=== PATIENT | female | born 1960 | race Hispanic/Latino ===

== ENCOUNTER 2022-08-12 21:52 | Inpatient (IN) | payer SELFPAY ==
[~2022-08-12] VITALS: Ht 165.1 cm; Wt 57.2 kg
--- NOTE | 2022-08-12 21:57 | NUR ---
PT WAS IN ASYSTOLE. CPR INITIATED CHEST COMPRESSIONS STARTED BY ANNA LENZ 2156 CHEST COMPRESSIONS INITIATED. 20G LEFT WRIST STARTED BY YULY STANTON. BREATHS DELIVERED BY DR. CHIRINOS. JOSÉ STANTON RECORDING. 2199- FIRST DOSE OF EPI ADMINISTERED BY JOSEPH STANTON 2200- PULSE CHECK ON AED. NO PULSE DETECTED. NO SHOCK ADVISED. CPR CONTINUED. 2201- ONE AMP OF SODIUM BICARB ADMINISTERED. BLOOD SUGAR 197 2202- SECOND DOSE OF EPI ADMINISTERED BY JOSEPH STANTON 2203- PULSE CHECK. NO PULSE DETECTED CPR CONTINUED 2204- PULSE DETECTED. RATE IS 152. PT SUCCESSFULLY INTUBATED. 7.5 ET TUBE. 23 AT THE LIP. 2207- AMIODERONE 300MG IV BOLUS ADMINISTERED BY JOSEPH 2210- NG TUBE TO RIGHT NARE PLACED BY JAEL GARCIA LVN 2219-PROPOFOL DRIP STARTED AT 5MCG/KG/MIN. PT WEIGHT 68KG 2215- NS BOLUS STARTED AT THIS TIME BY JOSEPH. 16FRENCH [place] PLACED BY YULY STANTON. 2222- 20G TO LEFT HAND STARTED BY YULY STANTON. 2229- PT MOVED FROM ROOM 6 TO ED ROOM 1 2241-100MCG OF FENTYNL GIVEN 224- ROCURONIUM 50MG ADMINISTERED 2322- PROPOFOL DRIP INCREASED TO 7MCG. LASIX 80MG GIVEN 2344- ATIVAN 2MG GIVEN 2345-PROP INCREASED TO 9MCG 2358- PT WAS TAKEN TO CT BY RT, JOSEPH STANTON, AND PUJA RUTH. 0023- BACK FROM CT 0103- PROP INCREASED TO 11MCG 0130- ZOSYN GIVEN 013- PROPOFOL INCREASED TO 14MCG. 0235- PT TRANSFERED TO ICU ROOM 2
--- NOTE | 2022-08-12 21:57 | NUR ---
PT ARRIVED TO THE ER COMPAINING OF CHEST PAIN. PT WAS BROUGHT BACK TO ROOM 6 AND WHILE ATTEMPTING TO INITIAL VITAL SIGN MONITORING ON PT, PT BEGAN TO STATE THAT SHE NEEDED HELP BECAUSE SHE COULD NOT BREATH. PT THE GRABBED AT HER CHEST AND EYES ROLLED BACKWARDS. DR. CHIRINOS IN ROOM DELIVERING BREATHS TO PT VIA AMBU BAG. ATTEMPTS WERE MADE TO FIND A PULSE ON PT. PT WAS IN ASYSTOLE AND CHEST COMPRESSIONS WERE INITIATED BY ANNA STANTON.
[2022-08-12] MEDS ORDERED: ZEMURON IV STA (22:37)
[2022-08-12] MEDS ORDERED: NS 1000ML 1,000 ML IV STA (22:37)
[2022-08-12] MEDS ORDERED: SUBLIMAZE IV STA (22:37)
[2022-08-12] MEDS ORDERED: SUBLIMAZE ONE (22:39)
[2022-08-12 22:44] LABS: BASOPHIL # 0.1 10^3/uL (0.0-0.1); BASOPHIL % 0.6 % (0.0-0.2); EOSINOPHIL # 0.3 10^3/uL (0.0-0.2); EOSINOPHIL % 1.8 % (0.0-5.0); LYMPHOCYTES # 7.07 10^3/uL1 (1.0-4.8); LYMPHOCYTES % 50.1 % (24.0-44.0); MEAN CORP HGB 28.5 pg (26-34); MONOCYTES # 0.6 10^3/uL (0.3-0.8); MONOCYTES % 4.1 % (5.0-12.0); NEUTROPHIL # 6.1 10^3/uL (1.8-7.7); NEUTROPHILS % 43.4 % (41.0-85.0); PLATELET COUNT 220 10^3/uL (150-400); RED CELL DISTRIBUTION WIDTH 13.6 % (11.5-14.5)
[2022-08-12] MEDS ORDERED: DIPRIVAN IV STA (22:54)
--- NOTE | 2022-08-12 22:59 | DIREP ---
PROCEDURE:CHEST 1 VIEW COMPARISON:None. INDICATIONS:Chest pain FINDINGS: LUNGS/PLEURA:Diffuse bilateral airspace opacity. VASCULATURE:Diffusely increased. CARDIAC:Normal. No cardiac silhouette abnormality or cardiomegaly. MEDIASTINUM:Endotracheal tube 5 cm above the jason. NG tube extends into the abdomen. BONES:Normal. No fracture or visible bony lesion. OTHER:Monitor leads in place. CONCLUSION:Findings consistent with either pulmonary edema or bilateral pneumonia. Dictated by: Costa Watson M.D. on 08/12/2022 at 10:57 PM
[2022-08-12 23:02] LABS: EOSINOPHIL 3 % (1-4); LYMPHOCYTE 45 % (25-36); MONOCYTE 3 % (3-9); SEGMENTED NEUTROPHILS 49 % (31-76)
[2022-08-12 23:07] LABS: CARBON DIOXIDE 14.5 mmol/L (20.0-32)
[2022-08-12] MEDS ORDERED: ASPIRIN RC STA (23:07)
[2022-08-12] MEDS ORDERED: ASPIRIN RC ONE (23:07)
[2022-08-12] MEDS ORDERED: LASIX IV STA (23:12)
--- NOTE | 2022-08-12 23:14 | ER.PDOC ---
General Chief Complaint: Requesting Medical Care Stated Complaint: CHEST PAIN SOB Time seen by MD: 23:07 Source: patient Exam Limitations: no limitations History of Present Illness Initial Comments Chest pain and shortness of breath this evening. Patient was rolled into the room and immediately she was put on the bed, she coded. She lost her pulse and CPR initiated. Timing/Duration: 4-6 hours Severity/Quality: moderate Activities at Onset: none Associated Symptoms: shortness of breath Past Medical History Medical History: no pertinent history Surgical History: no surgical history Family History Significant Family History: no pertinent family hx Social History Alcohol Use: none Drug Use: none Constitutional: no symptoms reported EENTM: no symptoms reported Respiratory: see HPI Cardiovascular: see HPI Gastrointestinal: no symptoms reported All Other Systems: Reviewed and Negative Physical Exam General Appearance: Other (unresponsive) HEENT: Normal ENT Inspection Neck: Normal Inspection Respiratory: respiratory distress, crackles Cardiovascular: Regular Rate, Rhythm, No Gallop, No Murmur, Other (absent pulses) Gastrointestinal: Normal Bowel Sounds, No Organomegaly, No Pulsatile Mass, Soft Extremities: Normal Inspection Neurologic/Psychiatric: Other (unresponsive) Skin: Normal Color Lymphatic: No Adenopathy Intubation Intubation : Time of Intubation: 21:15 Intubation Method: orotracheal Blade: curved Tube Size (cm): 7.5 Preoxygenated: Yes Breath Sounds after Intubation: equal Intubation Complications: no complications Post Intubation Xray: Yes Results/Orders Results/Orders Orders - CANDIS HOWARD MD EKG (08/12/22 22:27) Xr Chest 1v (08/12/22 22:27) Cbc With Auto Diff (08/12/22:) Comprehensive Metabolic Panel (08/12/22 22:) Creatine Kinase (08/12/22 22:27) Creatine Kinase Mb (08/12/22 22:27) Probnp B-Type Route Manager (08/12/22:) PT (08/12/22:27) Partial Thromboplastin Time. (08/12/22:27) D-Dimer (08/12/22:27) Troponin I High Sensitivity (08/12/22 22:27) Magnesium (08/12/22 22:27) Abg Oxygen Saturation-Ccl Only (08/12/22:) Rocuronium [place] (Zemuron) (08/12/22 22:37) 0.9 % Sodium Chloride (Ns 1000ml) (08/12/22 22:37) Fentanyl Citrate/Pf (Sublimaze) (08/12/22 22:37) Fentanyl Citrate/Pf (Sublimaze) (08/12/22 22:39) Propofol (Diprivan) (08/12/22 22:54) Laboratory Tests Test 08/12/22 22:35 08/12/22 22:57 White Blood Count 14.1 10^3/uL (4.5-11.0) H Red Blood Count 4.66 10^6/uL (4.00-5.20) Hemoglobin 13.3 g/dL (12.0-15.0) Hematocrit 43.4 % (36.0-46.0) Mean Corpuscular Volume 93.1 fL (78-100) Mean Corpuscular Hemoglobin 28.5 pg (26-34) Mean Corpuscular Hemoglobin Concent 30.6 g/dL (33-36.5) L Red Cell Distribution Width 13.6 % (11.5-14.5) Platelet Count 220 10^3/uL (150-400) Mean Platelet Volume 11.0 fL (7.8-11.0) Neutrophils (%) (Auto) 43.4 % (41.0-85.0) Lymphocytes (%) (Auto) 50.1 % (24.0-44.0) H Monocytes (%) (Auto) 4.1 % (5.0-12.0) L Neutrophils # (Auto) 6.1 10^3/uL (1.8-7.7) Lymphocytes # (Auto) 7.07 10^3/uL1 (1.0-4.8) H Monocytes # (Auto) 0.6 10^3/uL (0.3-0.8) Absolute Immature Granulocyte (auto 0.31 10^3 u/L (0-2) Absolute Eosinophils (auto) 0.3 10^3/uL (0.0-0.2) H Immature Granulocytes % 2.20 % (0.00-0.50) H Eosinophils % 1.8 % (0.0-5.0) Basophils % 0.6 % (0.0-0.2) H Basophils # 0.1 10^3/uL (0.0-0.1) Prothrombin Time 11.2 SEC (9.1-11.5) INR 1.1 Activated Partial Thromboplast Time 51.1 SEC (22.5-33.1) H D-Dimer Pending Segmented Neutrophils 49 % (31-76) Lymphocytes 45 % (25-36) H Monocytes 3 % (3-9) Absolute Eosinophils (Manual) 3 % (1-4) Platelet Estimate ADEQUATE Platelet Morphology NORMAL Progress Progress CTA chest: No pulmonary emboli. 2. Extensive lower lung consolidation with ground-glass opacity in the upper lungs consistent with extensive multifocal pneumonia. Aspiration cannot be excluded. 2. The patient is intubated. 3. Atherosclerosis. CT head: 1. Lacunar infarct left basal ganglia of undetermined age. 2. Moderate leukoaraiosis. WBC 14.1, Pro-Ford 0.05, UDS positive for THC, D-dimer 21.17, BNP 9118, CK-MB 4.9, troponin 316, CK1 84, potassium 3.1, creatinine 1.41, AST 152, ALT 104, alkaline phosphatase 150, rest of chemistries unremarkable. Patient coded for about 10 minutes. He received epi x2, an amp of bicarb, amiodarone 300 mg. He was also intubated. ROSC achieved. EKG/XRAY/CT/US EKG: LBBB EKG Comments: HR 91,normal P axis ER DEPART Departure Time of Disposition: 01:43 Disposition: 09 ADMITTED INPATIENT Impression: Primary Impression: Cardiopulmonary arrest Additional Impressions: CHF exacerbation Pneumonia Acute respiratory failure Elevated troponin Hepatic congestion Condition: Critical Referrals: PCP,UNKNOWN (PCP) PRIMARY CARE PROVIDER Comments Emitted to Dr. Verma. Spoke with Dr. Mi who will be consulting. Duration or Time Spent with Pa: 90 min Critical Care Note Total Time (mins): 90 Problem Qualifiers Additional Impressions: CHF exacerbation Heart failure type: unspecified Qualified Codes: I50.9 - Heart failure, unspecified Pneumonia Pneumonia type: due to unspecified organism Laterality: unspecified laterality Lung location: unspecified part of lung Qualified Codes: J18.9 - Pneumonia, unspecified organism Acute respiratory failure Respiratory failure complication: hypoxia and hypercapnia Qualified Codes: J96.01 - Acute respiratory failure with hypoxia; J96.02 - Acute respiratory failure with hypercapnia CANDIS HOWARD MD Aug 12, 2022 23:14
[2022-08-12] MEDS ORDERED: LASIX ONE (23:15)
[2022-08-12] MEDS ORDERED: ATIVAN IV STA (23:43)
[2022-08-12] MEDS ORDERED: APRESOLINE IV STA (23:43)
[2022-08-12] MEDS ORDERED: ATIVAN ONE (23:45)
[2022-08-13] VITALS (207 sets, daily range): BP systolic 56–221; BP diastolic 42–104
--- NOTE | 2022-08-13 00:51 | DIREP ---
PROCEDURE:CT HEAD WITHOUT CONTRAST TECHNIQUE:Axial cuts were obtained through the head, without intravenous contrast material. The images were viewed at brain and bone settings. COMPARISON:None. INDICATIONS:Unresponsive FINDINGS: VENTRICLES:Normal. CEREBRUM:Lacunar infarct left basal ganglia series 2, image 15 of undetermined age. Symmetrically diminished attenuation in the deep white matter consistent with moderate leukoaraiosis. No hemorrhage or mass lesion. CEREBELLUM:Normal. BRAINSTEM:Normal. SKULL:Normal. SINUSES:Normal. OTHER:Negative. CONCLUSION: 1. Lacunar infarct left basal ganglia of undetermined age. 2. Moderate leukoaraiosis. Dictated by: Costa Watson M.D. on 08/13/2022 at 00:48 AM
--- NOTE | 2022-08-13 00:56 | DIREP ---
PROCEDURE:CTA CHEST COMPARISON:None. INDICATIONS:SOB TECHNIQUE:Post contrast axial images through the chest with multiplanar MIP/3D reconstructions. FINDINGS: PULMONARY ARTERIES:Patent. LUNGS:Extensive lower lobe consolidations with ground-glass opacity in the remainder of the lungs. PLEURA:Normal. CARDIAC:Cardiomegaly RV:LV ratio (norm <0.9): Not applicable in the absence of pulmonary embolism. THORACIC AORTA:Heavily calcified with plaque. MEDIASTINUM:NG tube tip in the body of the stomach. Large amount of stomach fluid contents endotracheal tube in place.. THYROID:Normal. BONES:Osteophytes in the thoracic spine. OTHER:No additional findings. CONCLUSION: 1. No pulmonary emboli. 2. Extensive lower lung consolidation with ground-glass opacity in the upper lungs consistent with extensive multifocal pneumonia. Aspiration cannot be excluded. 2. The patient is intubated. 3. Atherosclerosis. Dictated by: Costa Watson M.D. on 08/13/2022 at 00:50 AM
[2022-08-13] MEDS ORDERED: NEXTERONE 360 MG/200 ML BAG 200 ML IV STA (01:17)
[2022-08-13] MEDS ORDERED: HEPARIN 500 UNIT/5 ML (100/ML) IV STA (01:17)
[2022-08-13] MEDS ORDERED: ZOSYN 3.375 GM 3.375 GM in NS 100ML 100 ML IV STA (01:17)
[2022-08-13] MEDS ORDERED: ZEMURON IV STA (01:17)
[2022-08-13] MEDS ORDERED: HEPARIN-D5W 20,000 UNIT/500 ML 500 ML IV STA (01:17)
[2022-08-13] MEDS ORDERED: NS 100ML 100 ML IV ONE (01:28)
[2022-08-13] MEDS ORDERED: VANCOMYCIN HCL 1 GM in NS 250ML 250 ML IV ONE (01:30)
[2022-08-13] MEDS ORDERED: HEPARIN-D5W 20,000 UNIT/500 ML 500 ML IV ONE (01:38)
[2022-08-13] MEDS ORDERED: HEPARIN ONE (01:38)
[2022-08-13] MEDS ORDERED: DIPRIVAN IV STA (01:59)
[2022-08-13] MEDS ORDERED: PROTONIX IV IV SCH (02:00)
[2022-08-13] MEDS ORDERED: TYLENOL PO PRN (02:00)
[2022-08-13] MEDS ORDERED: CORDARONE 150 MG in D5W 100ML 100 ML IV ONE (02:00)
[2022-08-13] MEDS ORDERED: ATROPINE SULFATE IV PRN (02:00)
[2022-08-13] MEDS ORDERED: HEPARIN-D5W 20,000 UNIT/500 ML 500 ML IV SCH (02:00)
[2022-08-13] MEDS ORDERED: NORCO 5MG PO PRN (02:00)
[2022-08-13] MEDS ORDERED: NEXTERONE 360 MG/200 ML BAG 200 ML IV ONE ×3 (02:00→11:03)
[2022-08-13] MEDS ORDERED: NITROLINGUAL TL PRN (02:00)
[2022-08-13] MEDS: DIPRIVAN IV PRN ×2 (02:35→11:59)
--- NOTE | 2022-08-13 02:35 | NUR ---
ARRIVAL NOTE PATIENT WAS BROUGHT UP BY THE ER NURSE AND THE RT AT THIS TIME IN A STRETCHER. PATIENT HAS AED PADS. PATIENT IS INTUBATED WITH 7.5 ET TUBE FIXED AT 23 AT LIPS AND SEDATED BY PROPOFOL RUNNING AT 15MCG/KG/MIN. INJ HEPARIN RUNNING AT 1000U/HOUR. PATIENT IS SHIFTED TO BED AND HOOKED ONTO BEDSIDE MONITOR AND TO THE VENTILATOR BY THE RT. PATIENT [id number] [facility]OOK'S CATHETER. 3 IV ACCESS, ALL 20G. 2 OF THEM ON THE LEFT HAND AND WRIST. 1 OF THEM ON THE RIGHT WRIST.
--- NOTE | 2022-08-13 02:42 | PRM.CONS ---
Consultation Reason for Consult: Reason for Consultation: Admission following cardiopulmonary arrest History of Present Illness History of Patient Comments This is a telemedicine visit Patient's current location: [place], [place] My current location [place], [place] Assistants: Emergency room physician Emergency room nursing staff Bedside nursing staff Technology: Choisr 78 minutes were spent on the day of admission including [id number] time via HIPAA compliant software, review of the chart, stabilization of the patient, discussion with emergency room provider, discussion with the on-call grain blender, placement of orders, stabilization of the patient as well and follow-up on initial orders and response to therapy Vitals & Lab Laboratory Tests Test 08/12/22 22:35 08/12/22 22:37 08/12/22 22:57 08/12/22 23:15 White Blood Count 14.1 10^3/uL Red Blood Count 4.66 10^6/uL Hemoglobin 13.3 g/dL Hematocrit 43.4 % Mean Corpuscular Volume 93.1 fL Mean Corpuscular Hemoglobin 28.5 pg Mean Corpuscular Hemoglobin Concent 30.6 g/dL Red Cell Distribution Width 13.6 % Platelet Count 220 10^3/uL Mean Platelet Volume 11.0 fL Neutrophils (%) (Auto) 43.4 % Lymphocytes (%) (Auto) 50.1 % Monocytes (%) (Auto) 4.1 % Neutrophils # (Auto) 6.1 10^3/uL Lymphocytes # (Auto) 7.07 10^3/uL1 Monocytes # (Auto) 0.6 10^3/uL Absolute Immature Granulocyte (auto 0.31 10^3 u/L Absolute Eosinophils (auto) 0.3 10^3/uL Immature Granulocytes % 2.20 % Eosinophils % 1.8 % Basophils % 0.6 % Basophils # 0.1 10^3/uL Prothrombin Time 11.2 SEC INR International Normalized Ratio 1.1 Activated Partial Thromboplast Time 51.1 SEC D-Dimer 21.17 mg/L Sodium Level 145 mmol/L Potassium Level 3.1 mmol/L Chloride Level 105.0 mmol/L Carbon Dioxide Level 14.5 mmol/L Anion Gap 28.6 Blood Urea Nitrogen 16 mg/dL Creatinine 1.41 mg/dL Estimated GFR () 46.0 Est GFR (CKD-EPI)(Non-Afr Georgian) 38.0 BUN/Creatinine Ratio 11.0 Glucose Level 355 mg/dL Calcium Level 8.3 mg/dL Magnesium Level 2.6 mg/dL Total Bilirubin 0.2 mg/dL Aspartate Amino Transf (AST/SGOT) 152 U/L Alanine Aminotransferase (ALT/SGPT) 104 U/L Alkaline Phosphatase 152 U/L Total Creatine Kinase 184 U/L Creatine Kinase MB 4.9 ng/mL Troponin I High Sensitivity 316 ng/L Pro-B-Type Natriuretic Peptide 9118 pg/mL Total Protein 5.8 g/dL Albumin 2.5 g/dL Globulin 3.3 Albumin/Globulin Ratio 0.757 Procalcitonin 0.05 ng/mL Bedside Glucose 288 Segmented Neutrophils 49 % Lymphocytes 45 % Monocytes 3 % Absolute Eosinophils (Manual) 3 % Platelet Estimate ADEQUATE Platelet Morphology NORMAL Urine Opiates Screen NEGATIVE Urine Methadone Screen NEGATIVE Urine Barbiturates Screen NEGATIVE Urine Phencyclidine Screen NEGATIVE Ur Amphetamine/Methamphetamine NEGATIVE Urine MDMA Screen (Ecstasy) NEGATIVE Urine Benzodiazepines Screen NEGATIVE Urine Cocaine Metabolite Screen NEGATIVE Ur Tetrahydrocannabinol (THC) Scrn PRESUMPTIVE POSITIVE Test 08/12/22 23:30 08/12/22 23:35 08/13/22 01:43 Blood Gas Sample Site RB Arterial Blood Oxygen Saturation 93.6 % Blood Gas Temperature 37 Triglycerides Level 201 mg/dL Lactic Acid Level 14.5 mmol/L Lactic Acid Followup at 2 Hours 1.2 mmol/L Current Medications Medications (Trade) Dose Ordered Sig/Emily Route PRN Reason Start Time Stop Time Status Last Admin Dose Admin Rocuronium [place] (Zemuron) 50 mg STAT STAT IV 08/12/22 22:37 08/12/22 22:40 DC 08/12/22 22:43 Sodium Chloride 1,000 ml @ 1,200 mls/hr Q50M STAT IV 08/12/22 22:37 08/12/22 23:26 DC 08/12/22 22:16 Fentanyl Citrate (Sublimaze) 100 mcg STAT STAT IV 08/12/22 22:37 08/12/22 22:40 DC 08/12/22 22:41 Fentanyl Citrate (Sublimaze) 50 mcg STK-MED ONCE .ROUTE 08/12/22 22:39 08/12/22 22:40 DC Propofol (Diprivan) 200 mg STAT STAT IV 08/12/22 22:54 08/12/22 22:56 DC 08/12/22 22:20 Aspirin (Aspirin) 300 mg STK-MED ONCE RC 08/12/22 23:07 08/12/22 23:07 DC Aspirin (Aspirin) 300 mg STAT STAT RC 08/12/22 23:07 08/12/22 23:08 UNV 08/12/22 23:07 Furosemide (Lasix) 40 mg STK-MED ONCE .ROUTE 08/12/22 23:15 08/12/22 23:15 DC Furosemide (Lasix) 80 mg STAT STAT IV 08/12/22 23:12 08/12/22 23:13 UNV 08/12/22 23:15 Lorazepam (Ativan) 2 mg STAT STAT IV 08/12/22 23:43 08/12/22 23:44 DC 08/12/22 23:45 Hydralazine HCl (Apresoline) 10 mg STAT STAT IV 08/12/22 23:43 08/12/22 23:44 DC 08/12/22 23:45 Lorazepam (Ativan) 2 mg STK-MED ONCE .ROUTE 08/12/22 23:45 08/12/22 23:45 DC Rocuronium [place] (Zemuron) 50 mg STAT STAT IV 08/13/22 01:17 08/13/22 01:23 DC 08/13/22 01:15 Piperacillin Sod/ Tazobactam Sod 3.375 gm/Sodium Chloride 100 ml @ 200 mls/hr STAT STAT IV 08/13/22 01:17 08/13/22 01:46 DC 08/13/22 01:29 Vancomycin HCl 1 gm/Sodium Chloride 250 ml @ 175 mls/hr OT ONCE IV 08/13/22 01:30 08/13/22 02:55 Heparin Sodium (Beef Lung) (Heparin 500 Unit/5 ml (100/ ml)) 5,000 unit STAT STAT IV 08/13/22 01:17 08/13/22 01:23 DC 08/13/22 01:47 Heparin Sodium/ Dextrose 500 ml @ 0 mls/hr STAT IV 08/13/22 01:17 08/13/22 01:23 DC 08/13/22 01:50 Amiodarone HCL/ Dextrose 200 ml @ 0 mls/hr STAT IV 08/13/22 01:17 08/13/22 01:59 DC Sodium Chloride 100 ml @ ud STK-MED ONCE IV 08/13/22 01:28 08/13/22 01:29 DC Heparin Sodium (Porcine) (Heparin) 5,000 unit STK-MED ONCE .ROUTE 08/13/22 01:38 08/13/22 01:38 DC Heparin Sodium/ Dextrose 500 ml @ ud STK-MED ONCE IV 08/13/22 01:38 08/13/22 01:38 DC Heparin Sodium/ Dextrose 500 ml @ 0 mls/hr TITRATE IV 08/13/22 02:00 09/12/22 01:59 UNV Nitroglycerin (Nitrolingual) 1 sprays Q5M PRN TL CHEST PAIN 08/13/22 02:00 09/12/22 01:59 UNV Pantoprazole Sodium (Protonix Iv) 40 mg OT IV 08/13/22 02:00 09/12/22 01:59 UNV Atorvastatin Calcium (Lipitor) 80 mg HS PO 08/13/22 21:00 09/12/22 20:59 UNV Docusate Sodium (Colace) 100 mg BID PO 08/13/22 09:00 09/12/22 08:59 UNV Acetaminophen (Tylenol) 1,000 mg Q6H PRN PO PAIN 1 - 3 08/13/22 02:00 09/12/22 01:59 UNV Acetaminophen/ Hydrocodone Bitart ([place] 5mg) 1 ea Q6 PRN PO PAIN 4 - 6 08/13/22 02:00 09/12/22 01:59 UNV Atropine Sulfate (Atropine Sulfate) 1 mg PRN PRN IV HR<45/min 08/13/22 02:00 09/12/22 01:59 UNV Amiodarone HCl 150 mg/Dextrose 103 ml @ 600 mls/hr OT ONCE IV 08/13/22 02:00 08/13/22 02:10 UNV Aspirin (Aspirin) 300 mg DAILY RC 08/13/22 09:00 09/12/22 08:59 UNV Albuterol/ Ipratropium (Duo 0.5-3(2.5) Mg/3 ml) 3 ml RTQ6 IH 08/13/22 03:00 09/12/22 02:59 UNV Amiodarone HCL/ Dextrose 200 ml @ 0 mls/hr ONCE IV 08/13/22 02:00 08/13/22 02:01 DC Propofol (Diprivan) Diprivan IV infusion tritra... TITRATE PRN IV AGITATION 08/13/22 02:00 09/12/22 01:59 UNV Propofol (Diprivan) STAT STAT IV 08/13/22 01:59 08/13/22 02:00 UNV Vital Sign - Last 24 Hours 08/12/22 08/12/22 08/12/22 08/12/22 22:06 22:06 23:15 23:38 Pulse 96 97 Resp 14 14 B/P (MAP) 211/109 Pulse Ox 93 93 O2 Delivery Ventilator+ FiO2 100 100 80 08/12/22 23:45 Pulse 99 B/P (MAP) 205/110 VTE VTE Risk Score VTE Risk: Score 0-1 = Low Risk (Aggressive mobilization; early ambulation; no VTE prophylaxis required) Score 2: Moderate Risk (Intermittent/Pneumatic Compression Device OR Lovenox/Heparin/Coumadin) Score 3-4: High Risk (Intermittent/Pneumatic Compression Device AND Lovenox/Heparin/Coumadin) Score > or =5: Highest Risk (Intermittent/Pneumatic Compression Device AND Lovenox/Heparin/Coumadin) History of Present Illness History of Present Illness This is a 61-year-old female who presented to the emergency room last evening with complaints of chest pain and shortness of breath. She apparently was quite tachypneic and was emergently taken back to the emergency room from triage. Shortly thereafter, she was found to be profoundly hypoxic and went into cardiac and respiratory arrest. The emergency room provider did successfully resuscitate her after about 6 minutes of CPR per his verbal report. She was successfully intubated. Following the code arrest, she had evidence of left bundle branch block on EKG with elevated troponin. The emergency room provider did reach out to the testing lead who recommended heparin as well as amiodarone and I was contacted for admission. The patient remains intubated and sedated at this time. I did discuss the case extensively with the on-call grain blender requesting additional assistance with management of the ventilator. We did discuss assessment as well as possible need for cooling protocol and both of us were in agreement that this was not needed at this time and the patient could be safely admitted here as opposed to transfer to a higher level of care. Given the patient's current status is being intubated and sedated, I am unable to obtain accurate family history, social history, past medical history, past surgical history Physical Exam General Appearance: Other (Intubated and sedated) HEENT: Other (Pupils are equally round and sluggish) Neck: Normal Inspection Respiratory: other (Coarse vent sounds heard throughout all lung [place], equal chest rise) Cardiovascular: Regular Rate, Rhythm Gastrointestinal: Hypoactive bowel sounds Extremities: Normal Inspection Neurologic/Psychiatric: Other (Patient is currently intubated and sedated) Skin: Other (Cool per nursing staff,) Assessment/Plan Assessment/Plan Problems: (1) NSTEMI (non-ST elevated myocardial infarction) Status: Acute Assessment & Plan: Will go and start the patient on heparin drip for now. Monitor anti Xa levels very closely. Giving heparin bolus now. Starting patient on aspirin and statin therapy. Checking lipid panel in the morning. Obtain echocardiogram in the morning. Will go and place patient in the progressive care unit on telemetry. Will need minimum of 24 hours of continuous telemetry monitoring at this point. Checking lipid panel in the morning. For now will go ahead and initiate beta blockade as well. Dr. Mi is aware of the patient and is in agreement with the plan as stated. We will continue with heparin drip for now. Per his recommendations starting on an amiodarone drip as well. We will do rectal aspirin as well. Update EKG in the morning. Keep n.p.o. after midnight for now. Appreciate cardiology assistance with management of this patient. ICD Code: I21.4 - Non-ST elevation (NSTEMI) myocardial infarction SNOMED: 16788615 (2) Cardiopulmonary arrest Status: Acute Assessment & Plan: Placed in the ICU Continue with ventilator support ABG in 2 hours DuoNebs every 4 hours We will obtain respiratory culture as well Patient currently with left bundle branch block I discussed the case with the grain blender who will be assisting with the management of this patient at this point He and I are in agreement that there is no need for cooling protocol at this point Appreciate cardiology assistance with the management of this patient with planned cardiac catheterization within the next [address] head shows no acute process CT of the chest shows no significant pulmonary embolism Most likely cause of her cardiopulmonary arrest with suspected flash pulmonary edema in the setting of an acute [place] ICD Code: I46.9 - Cardiac arrest, cause unspecified SNOMED: 521850309 (3) CHF exacerbation Status: Acute Assessment & Plan: IV diuresis Trending troponins Echocardiogram in the morning Otherwise management as outlined above ICD Code: I50.9 - Heart failure, unspecified SNOMED: 818635164, 70195417318367 (4) Acute hypoxemic respiratory failure Status: Acute Assessment & Plan: Most likely related to acute pulmonary edema Radiology does state CT chest shows extensive pneumonia however given the lack of an elevated procalcitonin or any other evidence of sepsis, probably more related to significant volume overload and probable flash pulmonary edema We will monitor for evidence of any sort of pneumonia Continuing with DuoNebs as well as ventilator management Appreciate pulmonary assistance with the management and evaluation of this patient ICD Code: J96.01 - Acute respiratory failure with hypoxia SNOMED: 861841508 (5) Acute hypercapnic respiratory failure Status: Acute Assessment & Plan: Additional ventilator management ICD Code: J96.02 - Acute respiratory failure with hypercapnia SNOMED: 139053535 (6) Lactic acid blood increased Status: Acute Assessment & Plan: Most likely from cardiopulmonary arrest Trend for now ICD Code: R79.89 - Other specified abnormal findings of blood chemistry SNOMED: 8105430, 278375788 (7) Left bundle branch block (LBBB) determined by electrocardiography Status: Acute Assessment & Plan: Management per cardiology ICD Code: I44.7 - Left bundle-branch block, unspecified SNOMED: 874954720 Problem Qualifiers (1) CHF exacerbation: Heart failure type: unspecified Qualified Codes: I50.9 - Heart failure, unspecified JOSHUA AN MD Aug 13, 2022 02:42
[2022-08-13] MEDS ORDERED: NS 250ML 250 ML ONE ×2 (03:17→12:34)
[2022-08-13] MEDS ORDERED: VANCOMYCIN HCL 1 GM ONE (03:17)
[2022-08-13] MEDS ORDERED: NOREPINEPHRINE 8 MG/250 ML IV SCH (03:30)
[2022-08-13] MEDS ORDERED: DEXTROSE IV SCH (03:30)
--- NOTE | 2022-08-13 03:35 | NUR ---
LEVOPHED DRIP BLOOD PRESSURE DROP DOWN TO 70's/40's RANGE SO CALLED DR. AN. GOT ORDER TO START LEVOPHED DRIP. STARTED THE DRIP AT 0.1MCG/KG/MIN.
[2022-08-13] MEDS: DUO 0.5-3(2.5) MG/3 ML IH SCH ×4 (04:56→20:55)
--- NOTE | 2022-08-13 04:57 | NUR ---
Notified Dr Verma for pt critical LAB Troponin 8 and CKMB 10.3. Orders given to contact Dr Mi. Notified Dr Mi of critical LABS. New orders to DC Troponin checks and give Amiodarone bolus followed by initiating drip per protocol
[2022-08-13] MEDS ORDERED: CORDARONE ONE (05:03)
--- NOTE | 2022-08-13 05:43 | NUR ---
PTT 98.9 per protocol hold Heparin for 1 hour. Restart @ 0640 and decrease Heparin by 200 Units
--- NOTE | 2022-08-13 08:29 | DIREP ---
PROCEDURE:CHEST 1 VIEW COMPARISON:[facility], CR, XRAY CHEST SINGLE VW, 08/12/2022, 10:34 PM. INDICATIONS:Intubation FINDINGS: LUNGS/PLEURA:Slightly improved interstitial and ground-glass opacities throughout both lungs. No definite pleural effusions. No pneumothorax. Endotracheal tube appears in satisfactory position. VASCULATURE:Diffusely increased. CARDIAC:Normal. No cardiac silhouette abnormality or cardiomegaly. MEDIASTINUM:Calcified aortic arch BONES:Normal. No fracture or visible bony lesion. OTHER:Monitor leads in place. External pacing pad overlies the chest. Nasogastric tube extends below the diaphragm, beyond the inferior edge of the radiograph. CONCLUSION: 1. Mild pulmonary vascular congestion with slightly improved interstitial and ground-glass opacities. Findings could signify improving pulmonary edema or pneumonia. Dictated by: Jaxon Putnam MD on 08/13/2022 at 08:25 AM
--- NOTE | 2022-08-13 08:30 | NUR ---
EXTRAVASATION OF LEVOPHED THIS NURSE NOTES AT THIS TIME LEFT PERIPHERAL FOREARM IV -WHICH WAS RUNNING LEVOPHED- HAS EXTRAVASATED AT THIS TIME. SWITCHED LEVOPHED TO ALTERNATE IV SITE. ALERTED DR. GASCA. RECEIVED VERBAL ORDERS TO HAVE COVER CUTTER PLACE CENTRAL LINE.
[2022-08-13] MEDS ORDERED: SUBLIMAZE 1,000 MCG in NS 100ML 80 ML IV SCH (09:00)
[2022-08-13] MEDS ORDERED: NS IV SCH (09:00)
[2022-08-13] MEDS ORDERED: SUBLIMAZE IV SCH (09:00)
[2022-08-13] MEDS ORDERED: ASPIRIN RC SCH (09:00)
--- NOTE | 2022-08-13 09:40 | NUR ---
CENTRAL LINE INSERTION C. TIMMY SIMMONS AT [facility] AT THIS TIME FOR ANGEL LUIS LINE INSERTION. THIS NURSE ASSISTING.
--- NOTE | 2022-08-13 10:08 | DIREP ---
PROCEDURE:CHEST 1 VIEW COMPARISON:[facility], CR, XRAY CHEST SINGLE VW, 08/13/2022, 07:12 AM. INDICATIONS:central line placement FINDINGS: LUNGS/PLEURA:Ground-glass and interstitial opacities are again noted throughout both lungs that could signify interstitial edema or bilateral pneumonia. No pneumothorax. VASCULATURE:Diffusely increased. CARDIAC:Normal. No cardiac silhouette abnormality or cardiomegaly. MEDIASTINUM:Calcified aortic arch BONES:Normal. No fracture or visible bony lesion. OTHER:Endotracheal tube appears in satisfactory position. Interval placement of right IJ central venous catheter terminating over the mid SVC. Nasogastric tube courses below the diaphragm, beyond the inferior radiographic age. CONCLUSION: 1. Right IJ central venous catheter terminates over the mid to lower SVC. No pneumothorax. 2. No other changes, as above. Dictated by: Jaxon Putnam MD on 08/13/2022 at 10:04 AM
[2022-08-13] MEDS ORDERED: ZEMURON IV ONE (10:30)
[2022-08-13] MEDS: COLACE PO SCH ×2 (10:56→21:00)
[2022-08-13] MEDS ORDERED: WATER ONE (11:02)
[2022-08-13] MEDS: PERIDEX MM SCH ×2 (11:09→22:42)
[2022-08-13 11:17] LABS: ABG PCO2 32.4 mmHg (35.0-45.0); ABG PH 7.431 (7.350-7.450); BE(B) -2.3 mmol/L (-2.0-2.0); HCO3act 21.1 mmol/L (22.0-26.0); pO2 93.5 mmHg (80.0-100.0)
--- NOTE | 2022-08-13 11:20 | PCM.HP ---
HISTORY AND PHYSICAL Date of Arrival on Unit: Aug 12, 2022 Chief Complaint chest pain and shortness of breath HPI Pt admitted to internet application developer: "This is a 61-year-old female who presented to the emergency room last evening with complaints of chest pain and shortness of breath. She apparently was quite tachypneic and was emergently taken back to the emergency room from triage. Shortly thereafter, she was found to be profoundly hypoxic and went into cardiac and respiratory arrest. The emergency room provider did successfully resuscitate her after about 6 minutes of CPR per his verbal report. She was successfully intubated. Following the code arrest, she had evidence of left bundle branch block on EKG with elevated troponin. The emergency room provider did reach out to the database marketing analyst who recommended heparin as well as amiodarone and I was contacted for admission. The patient remains intubated and sedated at this time. I did discuss the case extensively with the on-call qa analyst requesting additional assistance with management of the ventilator. We did discuss assessment as well as possible need for cooling protocol and both of us were in agreement that this was not needed at this time and the patient could be safely admitted here as opposed to transfer to a higher level of care." Pt seen and examined this morning in the ICU. One peripheral IV was lost, planning to have central line placed. The vasopressor, propofol, and amiodarone are still running but heparin stopped for a short time until additional access is obtained. Vent settings: tidal 450, rate 15, PEEP 8 FiO2 40% ; ABG: pH-7.43, PCO2-32.4, pO2-93.5, HCO3-12.1. Labs from admission reviewed, ordering new set now. There are no previous records for this pt at [facility]. PMHx limited. Allergies unknown. No family at bedside. Allergies Allergies Coded Allergies No Known Drug Allergies (Verified Allergy, Unknown, 08/13/22) Other Pt history Problems Medical Problems: (1) Acute respiratory failure Status: Acute ICD Codes: J96.00 - Acute respiratory failure, unspecified whether with hypoxia or hypercapnia SNOMED: 58653121 (2) CHF exacerbation Status: Acute ICD Codes: I50.9 - Heart failure, unspecified SNOMED: 839936630, 82328831599085 (3) Elevated troponin Status: Acute ICD Codes: R77.8 - Other specified abnormalities of plasma proteins SNOMED: 041835239, 930055558 (4) Hepatic congestion Status: Acute ICD Codes: K76.1 - Chronic passive congestion of liver SNOMED: 82654282, [id number] (5) Pneumonia Status: Acute ICD Codes: J18.9 - Pneumonia, unspecified organism SNOMED: 164806730, 03321185282497 ROS Limited secondary to sedation and intubation VITALS Vital Signs Date Time Temp Pulse Resp B/P (MAP) Pulse Ox O2 Delivery O2 Flow Rate FiO2 08/14/22 10:16 Nasal Cannula* 3 32 08/14/22 10:15 65 16 98 08/14/22 08:20 127/53 08/14/22 06:45 100.6 EXAM General Appearance: Sedated and intubated HEENT: Pupils are equally round and sluggish, intubated Neck: Normal Inspection Respiratory: Coarse breath sounds heard throughout all lung [place], equal chest rise, intubated on vent Cardiovascular: Regular Rate, Rhythm, palpable and visible parasternal heave Gastrointestinal: Hypoactive bowel sounds Extremities: Normal Inspection Neurologic/Psychiatric: Sedated and intubated, appropriate reflexes to pain, appropriate babinski, pupils reactive but sluggish Skin: no acute rash or petechiae LAB/RUBY/BBK/PATH Laboratory Tests Test 08/12/22 22:35 08/12/22 22:37 08/12/22 22:57 08/12/22 23:15 White Blood Count 14.1 10^3/uL (4.5-11.0) Red Blood Count 4.66 10^6/uL (4.00-5.20) Hemoglobin 13.3 g/dL (12.0-15.0) Hematocrit 43.4 % (36.0-46.0) Mean Corpuscular Volume 93.1 fL (78-100) Mean Corpuscular Hemoglobin 28.5 pg (26-34) Mean Corpuscular Hemoglobin Concent 30.6 g/dL (33-36.5) Red Cell Distribution Width 13.6 % (11.5-14.5) Platelet Count 220 10^3/uL (150-400) Mean Platelet Volume 11.0 fL (7.8-11.0) Neutrophils (%) (Auto) 43.4 % (41.0-85.0) Lymphocytes (%) (Auto) 50.1 % (24.0-44.0) Monocytes (%) (Auto) 4.1 % (5.0-12.0) Neutrophils # (Auto) 6.1 10^3/uL (1.8-7.7) Lymphocytes # (Auto) 7.07 10^3/uL1 (1.0-4.8) Monocytes # (Auto) 0.6 10^3/uL (0.3-0.8) Absolute Immature Granulocyte (auto 0.31 10^3 u/L (0-2) Absolute Eosinophils (auto) 0.3 10^3/uL (0.0-0.2) Immature Granulocytes % 2.20 % (0.00-0.50) Eosinophils % 1.8 % (0.0-5.0) Basophils % 0.6 % (0.0-0.2) Basophils # 0.1 10^3/uL (0.0-0.1) Prothrombin Time 11.2 SEC (9.1-11.5) INR International Normalized Ratio 1.1 Activated Partial Thromboplast Time 51.1 SEC (22.5-33.1) D-Dimer 21.17 mg/L (0.19-0.49) Sodium Level 145 mmol/L (132-145) Potassium Level 3.1 mmol/L (3.6-5.2) Chloride Level 105.0 mmol/L (96-109) Carbon Dioxide Level 14.5 mmol/L (20.0-32) Anion Gap 28.6 Blood Urea Nitrogen 16 mg/dL (7-18) Creatinine 1.41 mg/dL (0.59-1.40) Estimated GFR () 46.0 (>/=60) Est GFR (CKD-EPI)(Non-Afr Tu[place]) 38.0 (>/=60) BUN/Creatinine Ratio 11.0 Glucose Level 355 mg/dL (70-110) Calcium Level 8.3 mg/dL (8.4-10.5) Magnesium Level 2.6 mg/dL (1.8-2.4) Total Bilirubin 0.2 mg/dL (0.2-1.0) Aspartate Amino Transf (AST/SGOT) 152 U/L (0-35) Alanine Aminotransferase (ALT/SGPT) 104 U/L (12-78) Alkaline Phosphatase 152 U/L (50-136) Total Creatine Kinase 184 U/L (26-192) Creatine Kinase MB 4.9 ng/mL (0.5-3.6) Troponin I High Sensitivity 316 ng/L (0-50) Pro-B-Type Natriuretic Peptide 9118 pg/mL (0-125) Total Protein 5.8 g/dL (6.4-8.2) Albumin 2.5 g/dL (3.4-5.0) Globulin 3.3 Albumin/Globulin Ratio 0.757 Procalcitonin 0.05 ng/mL (0.05-0.5) Bedside Glucose 288 (70 - 110) Segmented Neutrophils 49 % (31-76) Lymphocytes 45 % (25-36) Monocytes 3 % (3-9) Absolute Eosinophils (Manual) 3 % (1-4) Platelet Estimate ADEQUATE Platelet Morphology NORMAL Urine Opiates Screen NEGATIVE (c/o300ng/mL) Urine Methadone Screen NEGATIVE (c/o300ng/mL) Urine Barbiturates Screen NEGATIVE (c/o200ng/mL) Urine Phencyclidine Screen NEGATIVE (c/o 25ng/mL) Ur Amphetamine/Methamphetamine NEGATIVE (ck1874qf/mL) Urine MDMA Screen (Ecstasy) NEGATIVE (c/o300ng/mL) Urine Benzodiazepines Screen NEGATIVE (c/o200ng/mL) Urine Cocaine Metabolite Screen NEGATIVE (c/o300ng/mL) Ur Tetrahydrocannabinol (THC) Scrn PRESUMPTIVE POSITIVE (c/o Test 08/12/22 23:30 08/12/22 23:35 08/13/22 01:43 08/13/22 03:50 Blood Gas Sample Site RB Arterial Blood Oxygen Saturation 93.6 % (94.0-97.00) Blood Gas Temperature 37 Triglycerides Level 201 mg/dL (20-200) Lactic Acid Level 14.5 mmol/L (0.5-1.9) Lactic Acid Followup at 2 Hours 1.2 mmol/L (0.5-1.9) Total Creatine Kinase 250 U/L (26-192) Creatine Kinase MB 10.3 ng/mL (0.5-3.6) Troponin I High Sensitivity 1948 ng/L (0-50) Test 08/13/22 04:30 08/13/22 05:08 08/13/22 10:09 08/13/22 11:10 Blood Gas Sample Site RT BRACIAL ARTERY RT BRACIAL ARTERY Arterial Blood Oxygen Saturation 96.2 % (94.0-97.00) 97.3 % (94.0-97.00) Blood Gas Temperature 37 37.0 Activated Partial Thromboplast Time 98.9 SEC (22.5-33.1) 36.1 SEC (22.5-33.1) Blood Gas pH 7.431 (7.350-7.450) Blood Gas PCO2 32.4 mmHg (35.0-45.0) Blood Gas PO2 93.5 mmHg (80.0-100.0) Blood Gas HCO3 21.1 mmol/L (22.0-26.0) Blood Gas Base Excess -2.3 mmol/L (-2.0-2.0) Duglas Test N/A Deoxyhemoglobin 2.6 % (0.0-5.0) Carboxyhemoglobin 2.3 % (0.0-3.9) Methemoglobin 0.1 % (0.00-5.0) Total Hemoglobin 14.7 % (12.0-17.8) Total Oxygen Concentration 19.7 % (13.5-17.5) Oxygen Delivery Method (LAB) VENT Blood Gas Vent Mode AC Blood Gas Vent Rate 16 FiO2 40 % (20-101) Blood Gas Tidal Volume 400 ML Blood Gas PEEP 8.0 CMH2O Total Carbon Dioxide 22.1 mmol/L (23-27) White Blood Count 17.0 10^3/uL (4.5-11.0) Red Blood Count 4.83 10^6/uL (4.00-5.20) Hemoglobin 13.8 g/dL (12.0-15.0) Hematocrit 42.1 % (36.0-46.0) Mean Corpuscular Volume 87.2 fL (78-100) Mean Corpuscular Hemoglobin 28.6 pg (26-34) Mean Corpuscular Hemoglobin Concent 32.8 g/dL (33-36.5) Red Cell Distribution Width 13.7 % (11.5-14.5) Platelet Count 187 10^3/uL (150-400) Mean Platelet Volume 11.2 fL (7.8-11.0) Neutrophils (%) (Auto) 86.9 % (41.0-85.0) Lymphocytes (%) (Auto) 7.2 % (24.0-44.0) Monocytes (%) (Auto) 5.4 % (5.0-12.0) Neutrophils # (Auto) 14.8 10^3/uL (1.8-7.7) Lymphocytes # (Auto) 1.23 10^3/uL1 (1.0-4.8) Monocytes # (Auto) 0.9 10^3/uL (0.3-0.8) Absolute Immature Granulocyte (auto 0.07 10^3 u/L (0-2) Absolute Eosinophils (auto) 0.0 10^3/uL (0.0-0.2) Immature Granulocytes % 0.40 % (0.00-0.50) Eosinophils % 0.0 % (0.0-5.0) Basophils % 0.1 % (0.0-0.2) Basophils # 0.0 10^3/uL (0.0-0.1) Sodium Level 142 mmol/L (132-145) Potassium Level 3.4 mmol/L (3.6-5.2) Chloride Level 105.0 mmol/L (96-109) Carbon Dioxide Level 23.3 mmol/L (20.0-32) Anion Gap 17.1 Blood Urea Nitrogen 30 mg/dL (7-18) Creatinine 1.56 mg/dL (0.59-1.40) Estimated GFR () 41.0 (>/=60) Est GFR (CKD-EPI)(Non-Afr Tu[place]) 33.9 (>/=60) BUN/Creatinine Ratio 19.0 Glucose Level 154 mg/dL (70-110) Calcium Level 7.5 mg/dL (8.4-10.5) Total Bilirubin 0.3 mg/dL (0.2-1.0) Aspartate Amino Transf (AST/SGOT) 189 U/L (0-35) Alanine Aminotransferase (ALT/SGPT) 135 U/L (12-78) Alkaline Phosphatase 162 U/L (50-136) Total Creatine Kinase 282 U/L (26-192) Creatine Kinase MB 7.9 ng/mL (0.5-3.6) Total Protein 6.2 g/dL (6.4-8.2) Albumin 2.9 g/dL (3.4-5.0) Globulin 3.3 Albumin/Globulin Ratio 0.878 Test 08/13/22 11:54 08/13/22 15:13 08/13/22 19:20 08/14/22 00:36 Nasal Adenovirus (PCR) NotDetected (NotDetected) Nasal Coronavirus Type 229E (PCR) NotDetected (NotDetected) Nasal Coronavirus Type HKU1 (PCR) NotDetected (NotDetected) Nasal Coronavirus Type NL63 (PCR) NotDetected (NotDetected) Nasal Coronavirus Type OC43 (PCR) NotDetected (NotDetected) Nasal Enterovirus/Rhinovirus (PCR) NotDetected (NotDetected) Nasal Influenza Type A (H1) (PCR) NotDetected (NotDetected) Nasal Influenza Type A (H3) (PCR) NotDetected (NotDetected) Nasal Swab Influenza Virus B (PCR) NotDetected (NotDetected) Nasal Parainfluenza Type 1 (PCR) NotDetected (NotDetected) Nasal Parainfluenza Type 2 (PCR) NotDetected (NotDetected) Nasal Parainfluenza Type 3 (PCR) NotDetected (NotDetected) Nasal Parainfluenza Type 4 (PCR) NotDetected (NotDetected) Nasal Resp Syncytial Virus (PCR) NotDetected (NotDetected) Nasal Bordetella pertussis DNA (PCR NotDetected (NotDetected) Nasal Chlamydophila pneumoniae (PCR NotDetected (NotDetected) Nasal Human Metapneumovirus (PCR) NotDetected (NotDetected) Nasal Mycoplasma pneumoniae (PCR) NotDetected (NotDetected) Nasal SARS-CoV-2 (PCR) NotDetected (NotDetected) Influenza A (PCR) NotDetected (NotDetected) Influenza Type A (H1N1/09) (PCR) NotDetected (NotDetected) Activated Partial Thromboplast Time 66.8 SEC (22.5-33.1) 67.5 SEC (22.5-33.1) Troponin I High Sensitivity 3793 ng/L (0-50) Bedside Glucose 94 (70 - 110) Test 3/20/23 04:20 08/14/22 06:36 08/14/22 08:00 White Blood Count 12.1 10^3/uL (4.5-11.0) Red Blood Count 4.19 10^6/uL (4.00-5.20) Hemoglobin 12.1 g/dL (12.0-15.0) Hematocrit 36.5 % (36.0-46.0) Mean Corpuscular Volume 87.1 fL (78-100) Mean Corpuscular Hemoglobin 28.9 pg (26-34) Mean Corpuscular Hemoglobin Concent 33.2 g/dL (33-36.5) Red Cell Distribution Width 14.3 % (11.5-14.5) Platelet Count 160 10^3/uL (150-400) Mean Platelet Volume 11.6 fL (7.8-11.0) Neutrophils (%) (Auto) 81.3 % (41.0-85.0) Lymphocytes (%) (Auto) 10.7 % (24.0-44.0) Monocytes (%) (Auto) 7.8 % (5.0-12.0) Neutrophils # (Auto) 9.9 10^3/uL (1.8-7.7) Lymphocytes # (Auto) 1.29 10^3/uL1 (1.0-4.8) Monocytes # (Auto) 1.0 10^3/uL (0.3-0.8) Absolute Immature Granulocyte (auto 0.03 10^3 u/L (0-2) Absolute Eosinophils (auto) 0.0 10^3/uL (0.0-0.2) Immature Granulocytes % 0.20 % (0.00-0.50) Eosinophils % 0.0 % (0.0-5.0) Basophils % 0.2 % (0.0-0.2) Basophils # 0.0 10^3/uL (0.0-0.1) Sodium Level 144 mmol/L (132-145) Potassium Level 3.0 mmol/L (3.6-5.2) Chloride Level 107.0 mmol/L (96-109) Carbon Dioxide Level 27.5 mmol/L (20.0-32) Anion Gap 12.5 Blood Urea Nitrogen 29 mg/dL (7-18) Creatinine 1.37 mg/dL (0.59-1.40) Estimated GFR () 47.6 (>/=60) Est GFR (CKD-EPI)(Non-Afr [place]) 39.3 (>/=60) BUN/Creatinine Ratio 21.0 Glucose Level 110 mg/dL (70-110) Calcium Level 7.7 mg/dL (8.4-10.5) Total Bilirubin 0.4 mg/dL (0.2-1.0) Aspartate Amino Transf (AST/SGOT) 56 U/L (0-35) Alanine Aminotransferase (ALT/SGPT) 88 U/L (12-78) Alkaline Phosphatase 123 U/L (50-136) Total Creatine Kinase 296 U/L (26-192) Total Protein 5.8 g/dL (6.4-8.2) Albumin 2.6 g/dL (3.4-5.0) Globulin 3.2 Albumin/Globulin Ratio 0.812 Bedside Glucose 114 (70 - 110) Blood Gas Sample Site RT BRACIAL ARTERY Blood Gas pH 7.418 (7.350-7.450) Blood Gas PCO2 36.4 mmHg (35.0-45.0) Blood Gas PO2 66.7 mmHg (80.0-100.0) Blood Gas HCO3 23.0 mmol/L (22.0-26.0) Blood Gas Base Excess -1.1 mmol/L (-2.0-2.0) Duglas Test N/A Arterial Blood Oxygen Saturation 93.1 % (94.0-97.00) Deoxyhemoglobin 6.9 % (0.0-5.0) Carboxyhemoglobin 0.3 % (0.0-3.9) Methemoglobin 0.3 % (0.00-5.0) Total Hemoglobin 12.1 % (12.0-17.8) Total Oxygen Concentration 15.8 % (13.5-17.5) Blood Gas Temperature 37.0 Oxygen Delivery Method (LAB) VENT Blood Gas Vent Mode AC Blood Gas Vent Rate 16 FiO2 40 % (20-101) Blood Gas Tidal Volume 400 ML Blood Gas PEEP 5.0 CMH2O Total Carbon Dioxide 24.1 mmol/L (23-27) IMAGING PROCEDURE:CHEST 1 VIEW COMPARISON:[facility], CR, XRAY CHEST SINGLE VW, 08/12/2022, 10:34 PM. INDICATIONS:Intubation FINDINGS: LUNGS/PLEURA:Slightly improved interstitial and ground-glass opacities throughout both lungs. No definite pleural effusions. No pneumothorax. Endotracheal tube appears in satisfactory position. VASCULATURE:Diffusely increased. CARDIAC:Normal. No cardiac silhouette abnormality or cardiomegaly. MEDIASTINUM:Calcified aortic arch BONES:Normal. No fracture or visible bony lesion. OTHER:Monitor leads in place. External pacing pad overlies the chest. Nasogastric tube extends below the diaphragm, beyond the inferior edge of the radiograph. CONCLUSION: 1. Mild pulmonary vascular congestion with slightly improved interstitial and ground-glass opacities. Findings could signify improving pulmonary edema or pneumonia. Dictated by: Jaxon Putnam MD on 08/13/2022 at 08:25 AM PROCEDURE:CT HEAD WITHOUT CONTRAST TECHNIQUE:Axial cuts were obtained through the head, without intravenous contrast material. The images were viewed at brain and bone settings. COMPARISON:None. INDICATIONS:Unresponsive FINDINGS: VENTRICLES:Normal. CEREBRUM:Lacunar infarct left basal ganglia series 2, image 15 of undetermined age. Symmetrically diminished attenuation in the deep white matter consistent with moderate leukoaraiosis. No hemorrhage or mass lesion. CEREBELLUM:Normal. BRAINSTEM:Normal. SKULL:Normal. SINUSES:Normal. OTHER:Negative. CONCLUSION: 1. Lacunar infarct left basal ganglia of undetermined age. 2. Moderate leukoaraiosis. Dictated by: Costa Watson M.D. on 08/13/2022 at 00:48 AM PROCEDURE:CTA CHEST COMPARISON:None. INDICATIONS:SOB TECHNIQUE:Post contrast axial images through the chest with multiplanar MIP/3D reconstructions. FINDINGS: PULMONARY ARTERIES:Patent. LUNGS:Extensive lower lobe consolidations with ground-glass opacity in the remainder of the lungs. PLEURA:Normal. CARDIAC:Cardiomegaly RV:LV ratio (norm <0.9): Not applicable in the absence of pulmonary embolism. THORACIC AORTA:Heavily calcified with plaque. MEDIASTINUM:NG tube tip in the body of the stomach. Large amount of stomach fluid contents endotracheal tube in place.. THYROID:Normal. BONES:Osteophytes in the thoracic spine. OTHER:No additional findings. CONCLUSION: 1. No pulmonary emboli. 2. Extensive lower lung consolidation with ground-glass opacity in the upper lungs consistent with extensive multifocal pneumonia. Aspiration cannot be excluded. 2. The patient is intubated. 3. Atherosclerosis. Dictated by: Costa Watson M.D. on 08/13/2022 at 00:50 AM SUMMARY Pt presented to ED with cardiopulmonary sx and subsequently went into cardiac arrest for approximately 6 minutes until ROSC requiring intubation and vasopressors who is admitted to the ICU in critical condition. ASSESSMENT/PLAN (1) NSTEMI (non-ST elevated myocardial infarction) Status: Acute Assessment & Plan: Will go and start the patient on heparin drip for now. Monitor anti Xa levels very closely. Giving heparin bolus now. Starting patient on aspirin and statin therapy. Checking lipid panel in the morning. Obtain echocardiogram in the morning. Will go and place patient in the progressive care unit on telemetry. Will need minimum of 24 hours of continuous telemetry monitoring at this point. Checking lipid panel in the morning. For now will go ahead and initiate beta blockade as well. Dr. Mi is aware of the patient and is in agreement with the plan as stated. We will continue with heparin drip for now. Per his recommendations starting on an amiodarone drip as well. We will do rectal aspirin as well. Update EKG in the morning. Keep n.p.o. after midnight for now. Appreciate cardiology assistance with management of this patient. ICD Code: I21.4 - Non-ST elevation (NSTEMI) myocardial infarction SNOMED: 08483470 (2) Cardiopulmonary arrest Status: Acute Assessment & Plan: Placed in the ICU Continue with ventilator support ABG in 2 hours DuoNebs every 4 hours We will obtain respiratory culture as well Patient currently with left bundle branch block I discussed the case with the qa analyst who will be assisting with the management of this patient at this point He and I are in agreement that there is no need for cooling protocol at this point Appreciate cardiology assistance with the management of this patient with planned cardiac catheterization within the next [address] head shows no acute process CT of the chest shows no significant pulmonary embolism Most likely cause of her cardiopulmonary arrest with suspected flash pulmonary edema in the setting of an acute [place] ICD Code: I46.9 - Cardiac arrest, cause unspecified SNOMED: 354103362 (3) CHF exacerbation Status: Acute Assessment & Plan: IV diuresis Trending troponins Echocardiogram in the morning Otherwise management as outlined above ICD Code: I50.9 - Heart failure, unspecified SNOMED: 504830806, 92329389885056 (4) Acute hypoxemic respiratory failure Status: Acute Assessment & Plan: Most likely related to acute pulmonary edema Radiology does state CT chest shows extensive pneumonia however given the lack of an elevated procalcitonin or any other evidence of sepsis, probably more related to significant volume overload and probable flash pulmonary edema We will monitor for evidence of any sort of pneumonia Continuing with DuoNebs as well as ventilator management Appreciate pulmonary assistance with the management and evaluation of this patient ICD Code: J96.01 - Acute respiratory failure with hypoxia SNOMED: 864443451 (5) Acute hypercapnic respiratory failure Status: Acute Assessment & Plan: Additional ventilator management ICD Code: J96.02 - Acute respiratory failure with hypercapnia SNOMED: 275236336 (6) Lactic acid blood increased Status: Acute Assessment & Plan: Most likely from cardiopulmonary arrest Trend for now ICD Code: R79.89 - Other specified abnormal findings of blood chemistry SNOMED: 0881381, 953747750 (7) Left bundle branch block (LBBB) determined by electrocardiography Status: Acute Assessment & Plan: Management per cardiology ICD Code: I44.7 - Left bundle-branch block, unspecified SNOMED: 102709821 MARTHA GASCA MD Aug 13, 2022 11:19
[2022-08-13] MEDS ORDERED: NEXTERONE 360 MG/200 ML BAG 200 ML IV SCH (11:30)
[2022-08-13 11:34] LABS: BASOPHIL % 0.1 % (0.0-0.2); LYMPHOCYTES # 1.23 10^3/uL1 (1.0-4.8); LYMPHOCYTES % 7.2 % (24.0-44.0); MEAN CORP HGB 28.6 pg (26-34); MONOCYTES # 0.9 10^3/uL (0.3-0.8); MONOCYTES % 5.4 % (5.0-12.0); NEUTROPHIL # 14.8 10^3/uL (1.8-7.7); NEUTROPHILS % 86.9 % (41.0-85.0); PLATELET COUNT 187 10^3/uL (150-400); RED CELL DISTRIBUTION WIDTH 13.7 % (11.5-14.5)
[2022-08-13] MEDS ORDERED: PLAVIX PO STA (11:41)
[2022-08-13] MEDS ORDERED: PLAVIX ONE (11:42)
[2022-08-13 11:58] LABS: CARBON DIOXIDE 23.3 mmol/L (20.0-32)
[2022-08-13] MEDS: ROCEPHIN 1,000 MG in NS 100ML 100 ML IV SCH (12:37)
[2022-08-13] MEDS: LASIX IV SCH (12:51)
--- NOTE | 2022-08-13 13:22 | TELE.CONS ---
VITALS REVIEW VITALS Vital Sign - Last 24 Hours 08/13/22 08/13/22 08/13/22 08/13/22 07:00 07:02 07:04 07:06 Pulse 75 75 75 75 Resp 18 18 18 18 B/P (MAP) 140/73 (95) 135/82 (99) 137/84 (101) 135/72 (93) Pulse Ox 100 100 100 100 O2 Delivery Ventilator+ Ventilator+ Ventilator+ Ventilator+ FiO2 40 40 40 40 08/13/22 08/13/22 08/13/22 08/13/22 07:08 07:10 07:15 07:15 Pulse 75 78 Resp 18 6 B/P (MAP) 126/78 (94) 150/86 (107) Pulse Ox 100 100 O2 Delivery Ventilator+ Ventilator+ Mechanical Ventilator FiO2 40 40 40 08/13/22 08/13/22 08/13/22 08/13/22 07:24 07:26 07:27 07:28 Pulse 74 73 75 75 Resp 18 15 18 18 B/P (MAP) 122/74 (90) 111/75 (87) 113/78 (90) Pulse Ox 100 100 100 100 O2 Delivery Ventilator+ Ventilator+ Ventilator+ Ventilator+ FiO2 40 40 40 40 08/13/22 08/13/22 08/13/22 08/13/22 07:30 07:32 07:34 07:37 Pulse 73 75 74 75 Resp 17 125 18 B/P (MAP) 111/77 (88) 116/77 (90) 125/78 (94) 127/79 (95) Pulse Ox 100 98 100 100 O2 Delivery Ventilator+ Ventilator+ Ventilator+ Ventilator+ FiO2 40 40 40 40 08/13/22 08/13/22 08/13/22 08/13/22 07:38 07:40 07:42 07:43 Pulse 74 76 75 77 Resp 31 19 24 B/P (MAP) 115/69 (84) 131/69 (89) 106/68 (81) Pulse Ox 97 94 100 100 O2 Delivery Ventilator+ Ventilator+ Ventilator+ Ventilator+ FiO2 40 40 40 40 08/13/22 08/13/22 08/13/22 08/13/22 07:48 07:51 07:52 07:54 Pulse 84 72 68 65 Resp 20 12 B/P (MAP) 151/61 (91) 111/55 (73) 81/53 (62) O2 Delivery Ventilator+ Ventilator+ Ventilator+ Ventilator+ FiO2 40 40 40 40 08/13/22 08/13/22 08/13/22 08/13/22 07:56 07:57 07:58 08:00 Pulse 69 71 73 74 B/P (MAP) 64/43 (50) 62/45 (51) 56/45 (49) Pulse Ox 99 O2 Delivery Ventilator+ Ventilator+ Ventilator+ Ventilator+ FiO2 40 40 40 40 08/13/22 08/13/22 08/13/22 08/13/22 08:02 08:04 08:06 08:08 Pulse 71 69 67 68 B/P (MAP) 99/64 (76) 106/64 (78) 106/63 (77) 82/45 (57) Pulse Ox 100 100 100 100 O2 Delivery Ventilator+ Ventilator+ Ventilator+ Ventilator+ FiO2 40 40 40 40 08/13/22 08/13/22 08/13/22 08/13/22 08:10 08:12 08:14 08:15 Pulse 68 68 70 69 B/P (MAP) 77/47 (57) 74/50 (58) 71/49 (56) Pulse Ox 100 100 100 100 O2 Delivery Ventilator+ Ventilator+ Ventilator+ Ventilator+ FiO2 40 40 40 40 08/13/22 08/13/22 08/13/22 08/13/22 08:15 08:15 08:16 08:18 Pulse 70 71 69 68 Resp 15 15 B/P (MAP) 71/52 (58) 81/49 (60) Pulse Ox 100 100 100 100 O2 Delivery Ventilator+ Ventilator+ Ventilator+ Ventilator+ FiO2 40 40 40 40 08/13/22 08/13/22 08/13/22 08/13/22 08:20 08:22 08:23 08:23 Pulse 69 70 70 70 Resp 15 15 B/P (MAP) 93/48 (63) 91/56 (68) Pulse Ox 100 100 100 100 O2 Delivery Ventilator+ Ventilator+ Ventilator+ FiO2 40 40 40 40 08/13/22 08/13/22 08/13/22 08/13/22 08:24 08:26 08:28 08:30 Pulse 68 68 68 68 B/P (MAP) 88/57 (67) 87/55 (66) 95/64 (74) 100/60 (73) Pulse Ox 100 100 100 100 O2 Delivery Ventilator+ Ventilator+ Ventilator+ Ventilator+ FiO2 40 40 40 40 08/13/22 08/13/22 08/13/22 08/13/22 08:32 08:34 08:36 08:38 Pulse 68 68 69 70 Resp 16 B/P (MAP) 103/62 (76) 86/61 (69) 92/64 (73) 117/68 (84) Pulse Ox 100 100 100 100 O2 Delivery Ventilator+ Ventilator+ Ventilator+ Ventilator+ FiO2 40 40 40 40 08/13/22 08/13/22 08/13/22 08/13/22 08:40 08:42 08:44 08:45 Pulse 70 78 73 72 Resp 12 22 16 15 B/P (MAP) 124/66 (85) 141/80 (100) 154/70 (98) Pulse Ox 100 100 100 100 O2 Delivery Ventilator+ Ventilator+ Ventilator+ Ventilator+ FiO2 40 40 40 40 08/13/22 08/13/22 08/13/22 08/13/22 08:46 08:48 08:50 08:53 Pulse 70 69 69 71 Resp 15 15 14 16 B/P (MAP) 142/70 (94) 124/68 (86) 118/66 (83) 142/64 (90) Pulse Ox 100 100 100 100 O2 Delivery Ventilator+ Ventilator+ Ventilator+ Ventilator+ FiO2 40 40 40 40 08/13/22 08/13/22 08/13/22 08/13/22 08:55 08:58 10:30 11:30 Pulse 72 71 Resp 17 17 B/P (MAP) 117/70 (86) 131/72 (91) Pulse Ox 100 100 O2 Delivery Ventilator+ Ventilator+ FiO2 40 40 40 40 08/13/22 08/13/22 08/13/22 11:30 12:00 12:51 Pulse 67 Resp 16 B/P (MAP) 150/86 Pulse Ox 100 O2 Delivery Mechanical Ventilator FiO2 40 Intake and Output 08/13/22 06:00 Intake Total 353 ml Balance 353 ml LABS LAB RESULTS Laboratory Tests Test 08/12/22 22:35 08/12/22 22:37 08/12/22 22:57 08/12/22 23:15 White Blood Count 14.1 10^3/uL (4.5-11.0) Red Blood Count 4.66 10^6/uL (4.00-5.20) Hemoglobin 13.3 g/dL (12.0-15.0) Hematocrit 43.4 % (36.0-46.0) Mean Corpuscular Volume 93.1 fL (78-100) Mean Corpuscular Hemoglobin 28.5 pg (26-34) Mean Corpuscular Hemoglobin Concent 30.6 g/dL (33-36.5) Red Cell Distribution Width 13.6 % (11.5-14.5) Platelet Count 220 10^3/uL (150-400) Mean Platelet Volume 11.0 fL (7.8-11.0) Neutrophils (%) (Auto) 43.4 % (41.0-85.0) Lymphocytes (%) (Auto) 50.1 % (24.0-44.0) Monocytes (%) (Auto) 4.1 % (5.0-12.0) Neutrophils # (Auto) 6.1 10^3/uL (1.8-7.7) Lymphocytes # (Auto) 7.07 10^3/uL1 (1.0-4.8) Monocytes # (Auto) 0.6 10^3/uL (0.3-0.8) Absolute Immature Granulocyte (auto 0.31 10^3 u/L (0-2) Absolute Eosinophils (auto) 0.3 10^3/uL (0.0-0.2) Immature Granulocytes % 2.20 % (0.00-0.50) Eosinophils % 1.8 % (0.0-5.0) Basophils % 0.6 % (0.0-0.2) Basophils # 0.1 10^3/uL (0.0-0.1) Prothrombin Time 11.2 SEC (9.1-11.5) INR International Normalized Ratio 1.1 Activated Partial Thromboplast Time 51.1 SEC (22.5-33.1) D-Dimer 21.17 mg/L (0.19-0.49) Sodium Level 145 mmol/L (132-145) Potassium Level 3.1 mmol/L (3.6-5.2) Chloride Level 105.0 mmol/L (96-109) Carbon Dioxide Level 14.5 mmol/L (20.0-32) Anion Gap 28.6 Blood Urea Nitrogen 16 mg/dL (7-18) Creatinine 1.41 mg/dL (0.59-1.40) Estimated GFR () 46.0 (>/=60) Est GFR (CKD-EPI)(Non-Afr [place]an) 38.0 (>/=60) BUN/Creatinine Ratio 11.0 Glucose Level 355 mg/dL (70-110) Calcium Level 8.3 mg/dL (8.4-10.5) Magnesium Level 2.6 mg/dL (1.8-2.4) Total Bilirubin 0.2 mg/dL (0.2-1.0) Aspartate Amino Transf (AST/SGOT) 152 U/L (0-35) Alanine Aminotransferase (ALT/SGPT) 104 U/L (12-78) Alkaline Phosphatase 152 U/L (50-136) Total Creatine Kinase 184 U/L (26-192) Creatine Kinase MB 4.9 ng/mL (0.5-3.6) Troponin I High Sensitivity 316 ng/L (0-50) Pro-B-Type Natriuretic Peptide 9118 pg/mL (0-125) Total Protein 5.8 g/dL (6.4-8.2) Albumin 2.5 g/dL (3.4-5.0) Globulin 3.3 Albumin/Globulin Ratio 0.757 Procalcitonin 0.05 ng/mL (0.05-0.5) Bedside Glucose 288 (70 - 110) Segmented Neutrophils 49 % (31-76) Lymphocytes 45 % (25-36) Monocytes 3 % (3-9) Absolute Eosinophils (Manual) 3 % (1-4) Platelet Estimate ADEQUATE Platelet Morphology NORMAL Urine Opiates Screen NEGATIVE (c/o300ng/mL) Urine Methadone Screen NEGATIVE (c/o300ng/mL) Urine Barbiturates Screen NEGATIVE (c/o200ng/mL) Urine Phencyclidine Screen NEGATIVE (c/o 25ng/mL) Ur Amphetamine/Methamphetamine NEGATIVE (ba0546uz/mL) Urine MDMA Screen (Ecstasy) NEGATIVE (c/o300ng/mL) Urine Benzodiazepines Screen NEGATIVE (c/o200ng/mL) Urine Cocaine Metabolite Screen NEGATIVE (c/o300ng/mL) Ur Tetrahydrocannabinol (THC) Scrn PRESUMPTIVE POSITIVE (c/o Test 08/12/22 23:30 08/12/22 23:35 08/13/22 01:43 08/13/22 03:50 Blood Gas Sample Site RB Arterial Blood Oxygen Saturation 93.6 % (94.0-97.00) Blood Gas Temperature 37 Triglycerides Level 201 mg/dL (20-200) Lactic Acid Level 14.5 mmol/L (0.5-1.9) Lactic Acid Followup at 2 Hours 1.2 mmol/L (0.5-1.9) Total Creatine Kinase 250 U/L (26-192) Creatine Kinase MB 10.3 ng/mL (0.5-3.6) Troponin I High Sensitivity 1948 ng/L (0-50) Test 08/13/22 04:30 08/13/22 05:08 08/13/22 10:09 08/13/22 11:10 Blood Gas Sample Site RT BRACIAL ARTERY RT BRACIAL ARTERY Arterial Blood Oxygen Saturation 96.2 % (94.0-97.00) 97.3 % (94.0-97.00) Blood Gas Temperature 37 37.0 Activated Partial Thromboplast Time 98.9 SEC (22.5-33.1) 36.1 SEC (22.5-33.1) Blood Gas pH 7.431 (7.350-7.450) Blood Gas PCO2 32.4 mmHg (35.0-45.0) Blood Gas PO2 93.5 mmHg (80.0-100.0) Blood Gas HCO3 21.1 mmol/L (22.0-26.0) Blood Gas Base Excess -2.3 mmol/L (-2.0-2.0) Duglas Test N/A Deoxyhemoglobin 2.6 % (0.0-5.0) Carboxyhemoglobin 2.3 % (0.0-3.9) Methemoglobin 0.1 % (0.00-5.0) Total Hemoglobin 14.7 % (12.0-17.8) Total Oxygen Concentration 19.7 % (13.5-17.5) Oxygen Delivery Method (LAB) VENT Blood Gas Vent Mode AC Blood Gas Vent Rate 16 FiO2 40 % (20-101) Blood Gas Tidal Volume 400 ML Blood Gas PEEP 8.0 CMH2O Total Carbon Dioxide 22.1 mmol/L (23-27) White Blood Count 17.0 10^3/uL (4.5-11.0) Red Blood Count 4.83 10^6/uL (4.00-5.20) Hemoglobin 13.8 g/dL (12.0-15.0) Hematocrit 42.1 % (36.0-46.0) Mean Corpuscular Volume 87.2 fL (78-100) Mean Corpuscular Hemoglobin 28.6 pg (26-34) Mean Corpuscular Hemoglobin Concent 32.8 g/dL (33-36.5) Red Cell Distribution Width 13.7 % (11.5-14.5) Platelet Count 187 10^3/uL (150-400) Mean Platelet Volume 11.2 fL (7.8-11.0) Neutrophils (%) (Auto) 86.9 % (41.0-85.0) Lymphocytes (%) (Auto) 7.2 % (24.0-44.0) Monocytes (%) (Auto) 5.4 % (5.0-12.0) Neutrophils # (Auto) 14.8 10^3/uL (1.8-7.7) Lymphocytes # (Auto) 1.23 10^3/uL1 (1.0-4.8) Monocytes # (Auto) 0.9 10^3/uL (0.3-0.8) Absolute Immature Granulocyte (auto 0.07 10^3 u/L (0-2) Absolute Eosinophils (auto) 0.0 10^3/uL (0.0-0.2) Immature Granulocytes % 0.40 % (0.00-0.50) Eosinophils % 0.0 % (0.0-5.0) Basophils % 0.1 % (0.0-0.2) Basophils # 0.0 10^3/uL (0.0-0.1) Sodium Level 142 mmol/L (132-145) Potassium Level 3.4 mmol/L (3.6-5.2) Chloride Level 105.0 mmol/L (96-109) Carbon Dioxide Level 23.3 mmol/L (20.0-32) Anion Gap 17.1 Blood Urea Nitrogen 30 mg/dL (7-18) Creatinine 1.56 mg/dL (0.59-1.40) Estimated GFR () 41.0 (>/=60) Est GFR (CKD-EPI)(Non-Afr Ni[place]an) 33.9 (>/=60) BUN/Creatinine Ratio 19.0 Glucose Level 154 mg/dL (70-110) Calcium Level 7.5 mg/dL (8.4-10.5) Total Bilirubin 0.3 mg/dL (0.2-1.0) Aspartate Amino Transf (AST/SGOT) 189 U/L (0-35) Alanine Aminotransferase (ALT/SGPT) 135 U/L (12-78) Alkaline Phosphatase 162 U/L (50-136) Total Creatine Kinase 282 U/L (26-192) Creatine Kinase MB 7.9 ng/mL (0.5-3.6) Total Protein 6.2 g/dL (6.4-8.2) Albumin 2.9 g/dL (3.4-5.0) Globulin 3.3 Albumin/Globulin Ratio 0.878 Assessment/Plan Assessment/Plan Assessment/Plan Tele ICU Consult note A 61 YO F who was presented yesterday for eval of SOB, during her ED stay she suffered cardiac arrest. Per records she was given 2 amp of epi and amp of bicarbonate, has ROSC after 6 minutes of CPR, underwent CT head that showed no acute intracranial bleed, CTPA with no central PE but with air space opacities ? aspiration. Cardiac arrest was around 10 pm yesterday, did not undergo TTP or therapeutic hypothermia. Currently on full vent support / with accepted ABG, on vasopressor, initially via peripheral access, but currently via TLC in R IJ, sedated on Propofol and fentanyl, on heparin and amnio drip. Cardiology team on board. Assessment - Acute respirator failure on MV - Post cardiac arrest - ? acute coronary syndrome - Aspiration pneumonia - Arrhythmia - ROSARIO Plan - Continue full vent support, target normal ph and Po2, wean off Fio2 as tolerated, Vent setting adjusted and ABG is accepted. - Chlorhexidine mouth wash. - Wean off pressors as tolerated to keep MAP around 65, running via Right IJ TLC - Ct head and CTPA reviewed, no intracranial bleed or central PE - Did not undergo hypothermia, to late to start it, avoid hyperthermia, target 36 - Analgosedation with propofol and fentanyl for better vent synchrony, wean daily for eval of neurological symptoms - Continue heparin drip and aspirin and statin high dose, amio drip for possible ACS - Cardiology team on board, trend trop, possible LHC per bedside team - CT PA with air space opacities, will add Ceftriaxone and doxycycline - Keep NPO for now - Sliding scale with insulin coverage if needed - Aggressive correction of electrolyte imbalance. - DVT PPX therapeutic heparin - GI PPX PPI Patient has seen and evaluated with nursing staff utilizing audio and video HIPPA compliant technology. Labs, imaging, and chart reviewed. Plan of management discussed in detail with ICU nursing staff during morning round. Critical care time took 60 minutes. JUAN GERMAIN MD Aug 13, 2022 13:22
[2022-08-13] MEDS ORDERED: SODIUM BICARBONATE IV ONE (14:00)
[2022-08-13] MEDS ORDERED: CALAN IV ONE (14:00)
[2022-08-13] MEDS ORDERED: EPINEPHRINE IV ONE (14:00)
--- NOTE | 2022-08-13 15:10 | NUR ---
[facility] GTT CALLED DR. FERNANDEZ REGARDING PT NEURO STATUS AND PROPOFOL WEANING. ALERTED DR. FERNANDEZ TO PT'S RATE AND RHYTHM WELL. RECEIVED ORDERS TO DISCONTINUE AMIO GTT AT THIS TIME.
--- NOTE | 2022-08-13 18:55 | NUR ---
BEDSIDE REPORT RECEIVED FROM MAXIMINO THOMAS. ASSUMED PT CARE.
--- NOTE | 2022-08-13 20:30 | NUR ---
PLAN OF CARE: MAXIMINO HERNANDEZ CALLED TO NOTIFY THAT PT WILL BE TAKEN TO SANITARIAN AIDE TONIGHT.
--- NOTE | 2022-08-13 20:43 | NUR ---
FAMILY: FLOWER - PT SON NOTIFIED OF PLAN OF CARE FOR PT TO BE TAKEN TO CORE DRILLER HELPER. FLOWER AND SPOUSE WILL COME TO HOSPITAL SHORTLY.
[2022-08-13] MEDS ORDERED: SUBLIMAZE ONE (20:50)
[2022-08-13] MEDS ORDERED: XYLOCAINE ONE (20:51)
[2022-08-13] MEDS ORDERED: VERSED ONE (20:51)
--- NOTE | 2022-08-13 21:25 | NUR ---
STEREO MAP PLOTTER OPERATOR: PT OFF UNIT TO STEREO MAP PLOTTER OPERATOR ACCOMPANIED BY MAXIMINO KILGORE, MAXIMINO HERNANDEZ AND MAXIMINO YANG.
[2022-08-13] MEDS ORDERED: NS 1000ML 1,000 ML ONE (21:31)
[2022-08-13] MEDS ORDERED: APRESOLINE ONE (21:44)
[2022-08-13] MEDS ORDERED: TRANDATE IV ONE (21:54)
[2022-08-13] MEDS: VIBRAMYCIN 100 MG in NS 100ML 100 ML IV SCH (22:42)
[2022-08-13] MEDS: LIPITOR PO SCH (22:42)
[2022-08-13] MEDS ORDERED: COLACE ONE (22:42)
[2022-08-13] MEDS ORDERED: COLACE NG ONE (22:49)
[2022-08-14] VITALS (93 sets, daily range): BP systolic 87–194; BP diastolic 38–93
--- NOTE | 2022-08-14 00:23 | [facility] ---
DATE OF SERVICE: 08/13/2022 DICTATOR NAME: URSZULA FERNANDEZDO CARDIAC CATHETERIZATION REPORT INDICATIONS: Cardiopulmonary arrest. This is a 61-year-old female who presented to the Emergency Room with progressively worsening shortness of breath and tachypnea. She went into cardiopulmonary arrest. She was noted to have elevated troponins. She was then set up for left heart catheterization to rule out an ischemic substrate. PROCEDURES PERFORMED: * Selective coronary angiography. * Left ventriculography. * Hemostasis established using a 6-Equatorial [place] Mynx control. DESCRIPTION OF PROCEDURE: Access was obtained using a 4-[place]atorial [place] micropuncture sheath to cannulate the right common femoral artery. The 4-[place]atorial [place] sheath was then upsized to a 6-[place]atorial [place] regular short sheath. Diagnostic angiography was then carried out using a Kashif left catheter. It became evident that the patient has "a double barrel takeoff" of the left anterior descending artery and the left circumflex artery. I initially engaged the left circumflex artery. The left circumflex artery was noted to have mild luminal irregularities. It is a dominant vessel. It gives off 4 obtuse marginal branches. The first two obtuse marginal branches are noted to have mild luminal irregularities. The third obtuse marginal branch has a 50% focal lesion in the mid segment. The fourth obtuse marginal branch is noted to have mild luminal irregularities. The left circumflex artery continues as the left posterolateral artery supplying the posterolateral wall. I then tucked my diagnostic catheter to engage the ostium of the left anterior descending artery. The left anterior descending artery was noted to have mild luminal irregularities. It runs in the interventricular groove to the apex to form a type 2 LAD. It gives rise to 3 diagonal branches that are noted to have mild luminal irregularities. The Kashif left catheter was then exchanged for a Kashif right catheter, which was used to engage the RCA. The right coronary artery was noted to be nondominant and with mild luminal irregularities. It is a small caliber vessel. The Kashif right catheter was then exchanged for a pigtail catheter, which was used to cross the aortic valve into the left ventricle. Left ventriculography was performed. LVEF was noted to be 55%. LVEDP was noted to be 13. Upon pullback of the pigtail catheter, there was no gradient across the aortic valve. The pigtail catheter was then taken out and hemostasis was established using a 6-Equatorial [place] Mynx control. The patient left the Cardiac Catheterization lab in stable condition and there were no complications. IMPRESSION: * Nonobstructive coronary artery disease. * Selective coronary angiography. * "Double barrel takeoff" of the left anterior descending artery and the left circumflex artery. * Left ventriculography. * Left ventricular ejection fraction of 55%. * Left ventricular end-diastolic pressure of 13. * Hemostasis established using a 6-[place] Mynx control. RECOMMENDATIONS: No coronary intervention is necessary at this time. Optimization of cardiac medications will be pursued. No further invasive cardiac workup is necessary at this time. Ariel ARMIJO D.O. DR: SHAE TID: [id number] RECEIPT: [id number] MTDD
--- NOTE | 2022-08-14 00:29 | TELE.CONS ---
Review of Systems Allergies: Coded Allergies: No Known Drug Allergies (Verified Allergy, Unknown, 08/13/22) LABS LAB RESULTS Laboratory Tests Test 08/12/22 22:35 08/12/22 22:37 08/12/22 22:57 08/12/22 23:15 White Blood Count 14.1 10^3/uL (4.5-11.0) Red Blood Count 4.66 10^6/uL (4.00-5.20) Hemoglobin 13.3 g/dL (12.0-15.0) Hematocrit 43.4 % (36.0-46.0) Mean Corpuscular Volume 93.1 fL (78-100) Mean Corpuscular Hemoglobin 28.5 pg (26-34) Mean Corpuscular Hemoglobin Concent 30.6 g/dL (33-36.5) Red Cell Distribution Width 13.6 % (11.5-14.5) Platelet Count 220 10^3/uL (150-400) Mean Platelet Volume 11.0 fL (7.8-11.0) Neutrophils (%) (Auto) 43.4 % (41.0-85.0) Lymphocytes (%) (Auto) 50.1 % (24.0-44.0) Monocytes (%) (Auto) 4.1 % (5.0-12.0) Neutrophils # (Auto) 6.1 10^3/uL (1.8-7.7) Lymphocytes # (Auto) 7.07 10^3/uL1 (1.0-4.8) Monocytes # (Auto) 0.6 10^3/uL (0.3-0.8) Absolute Immature Granulocyte (auto 0.31 10^3 u/L (0-2) Absolute Eosinophils (auto) 0.3 10^3/uL (0.0-0.2) Immature Granulocytes % 2.20 % (0.00-0.50) Eosinophils % 1.8 % (0.0-5.0) Basophils % 0.6 % (0.0-0.2) Basophils # 0.1 10^3/uL (0.0-0.1) Prothrombin Time 11.2 SEC (9.1-11.5) INR International Normalized Ratio 1.1 Activated Partial Thromboplast Time 51.1 SEC (22.5-33.1) D-Dimer 21.17 mg/L (0.19-0.49) Sodium Level 145 mmol/L (132-145) Potassium Level 3.1 mmol/L (3.6-5.2) Chloride Level 105.0 mmol/L (96-109) Carbon Dioxide Level 14.5 mmol/L (20.0-32) Anion Gap 28.6 Blood Urea Nitrogen 16 mg/dL (7-18) Creatinine 1.41 mg/dL (0.59-1.40) Estimated GFR () 46.0 (>/=60) Est GFR (CKD-EPI)(Non-Afr Taiwanese) 38.0 (>/=60) BUN/Creatinine Ratio 11.0 Glucose Level 355 mg/dL (70-110) Calcium Level 8.3 mg/dL (8.4-10.5) Magnesium Level 2.6 mg/dL (1.8-2.4) Total Bilirubin 0.2 mg/dL (0.2-1.0) Aspartate Amino Transf (AST/SGOT) 152 U/L (0-35) Alanine Aminotransferase (ALT/SGPT) 104 U/L (12-78) Alkaline Phosphatase 152 U/L (50-136) Total Creatine Kinase 184 U/L (26-192) Creatine Kinase MB 4.9 ng/mL (0.5-3.6) Troponin I High Sensitivity 316 ng/L (0-50) Pro-B-Type Natriuretic Peptide 9118 pg/mL (0-125) Total Protein 5.8 g/dL (6.4-8.2) Albumin 2.5 g/dL (3.4-5.0) Globulin 3.3 Albumin/Globulin Ratio 0.757 Procalcitonin 0.05 ng/mL (0.05-0.5) Bedside Glucose 288 (70 - 110) Segmented Neutrophils 49 % (31-76) Lymphocytes 45 % (25-36) Monocytes 3 % (3-9) Absolute Eosinophils (Manual) 3 % (1-4) Platelet Estimate ADEQUATE Platelet Morphology NORMAL Urine Opiates Screen NEGATIVE (c/o300ng/mL) Urine Methadone Screen NEGATIVE (c/o300ng/mL) Urine Barbiturates Screen NEGATIVE (c/o200ng/mL) Urine Phencyclidine Screen NEGATIVE (c/o 25ng/mL) Ur Amphetamine/Methamphetamine NEGATIVE (mj8122bm/mL) Urine MDMA Screen (Ecstasy) NEGATIVE (c/o300ng/mL) Urine Benzodiazepines Screen NEGATIVE (c/o200ng/mL) Urine Cocaine Metabolite Screen NEGATIVE (c/o300ng/mL) Ur Tetrahydrocannabinol (THC) Scrn PRESUMPTIVE POSITIVE (c/o Test 08/12/22 23:30 08/12/22 23:35 08/13/22 01:43 08/13/22 03:50 Blood Gas Sample Site RB Arterial Blood Oxygen Saturation 93.6 % (94.0-97.00) Blood Gas Temperature 37 Triglycerides Level 201 mg/dL (20-200) Lactic Acid Level 14.5 mmol/L (0.5-1.9) Lactic Acid Followup at 2 Hours 1.2 mmol/L (0.5-1.9) Total Creatine Kinase 250 U/L (26-192) Creatine Kinase MB 10.3 ng/mL (0.5-3.6) Troponin I High Sensitivity 1948 ng/L (0-50) Test 08/13/22 04:30 08/13/22 05:08 08/13/22 10:09 08/13/22 11:10 Blood Gas Sample Site RT BRACIAL ARTERY RT BRACIAL ARTERY Arterial Blood Oxygen Saturation 96.2 % (94.0-97.00) 97.3 % (94.0-97.00) Blood Gas Temperature 37 37.0 Activated Partial Thromboplast Time 98.9 SEC (22.5-33.1) 36.1 SEC (22.5-33.1) Blood Gas pH 7.431 (7.350-7.450) Blood Gas PCO2 32.4 mmHg (35.0-45.0) Blood Gas PO2 93.5 mmHg (80.0-100.0) Blood Gas HCO3 21.1 mmol/L (22.0-26.0) Blood Gas Base Excess -2.3 mmol/L (-2.0-2.0) Dugals Test N/A Deoxyhemoglobin 2.6 % (0.0-5.0) Carboxyhemoglobin 2.3 % (0.0-3.9) Methemoglobin 0.1 % (0.00-5.0) Total Hemoglobin 14.7 % (12.0-17.8) Total Oxygen Concentration 19.7 % (13.5-17.5) Oxygen Delivery Method (LAB) VENT Blood Gas Vent Mode AC Blood Gas Vent Rate 16 FiO2 40 % (20-101) Blood Gas Tidal Volume 400 ML Blood Gas PEEP 8.0 CMH2O Total Carbon Dioxide 22.1 mmol/L (23-27) White Blood Count 17.0 10^3/uL (4.5-11.0) Red Blood Count 4.83 10^6/uL (4.00-5.20) Hemoglobin 13.8 g/dL (12.0-15.0) Hematocrit 42.1 % (36.0-46.0) Mean Corpuscular Volume 87.2 fL (78-100) Mean Corpuscular Hemoglobin 28.6 pg (26-34) Mean Corpuscular Hemoglobin Concent 32.8 g/dL (33-36.5) Red Cell Distribution Width 13.7 % (11.5-14.5) Platelet Count 187 10^3/uL (150-400) Mean Platelet Volume 11.2 fL (7.8-11.0) Neutrophils (%) (Auto) 86.9 % (41.0-85.0) Lymphocytes (%) (Auto) 7.2 % (24.0-44.0) Monocytes (%) (Auto) 5.4 % (5.0-12.0) Neutrophils # (Auto) 14.8 10^3/uL (1.8-7.7) Lymphocytes # (Auto) 1.23 10^3/uL1 (1.0-4.8) Monocytes # (Auto) 0.9 10^3/uL (0.3-0.8) Absolute Immature Granulocyte (auto 0.07 10^3 u/L (0-2) Absolute Eosinophils (auto) 0.0 10^3/uL (0.0-0.2) Immature Granulocytes % 0.40 % (0.00-0.50) Eosinophils % 0.0 % (0.0-5.0) Basophils % 0.1 % (0.0-0.2) Basophils # 0.0 10^3/uL (0.0-0.1) Sodium Level 142 mmol/L (132-145) Potassium Level 3.4 mmol/L (3.6-5.2) Chloride Level 105.0 mmol/L (96-109) Carbon Dioxide Level 23.3 mmol/L (20.0-32) Anion Gap 17.1 Blood Urea Nitrogen 30 mg/dL (7-18) Creatinine 1.56 mg/dL (0.59-1.40) Estimated GFR () 41.0 (>/=60) Est GFR (CKD-EPI)(Non-Afr Taiwanese) 33.9 (>/=60) BUN/Creatinine Ratio 19.0 Glucose Level 154 mg/dL (70-110) Calcium Level 7.5 mg/dL (8.4-10.5) Total Bilirubin 0.3 mg/dL (0.2-1.0) Aspartate Amino Transf (AST/SGOT) 189 U/L (0-35) Alanine Aminotransferase (ALT/SGPT) 135 U/L (12-78) Alkaline Phosphatase 162 U/L (50-136) Total Creatine Kinase 282 U/L (26-192) Creatine Kinase MB 7.9 ng/mL (0.5-3.6) Total Protein 6.2 g/dL (6.4-8.2) Albumin 2.9 g/dL (3.4-5.0) Globulin 3.3 Albumin/Globulin Ratio 0.878 Test 08/13/22 11:54 08/13/22 15:13 08/13/22 19:20 Nasal Adenovirus (PCR) NotDetected (NotDetected) Nasal Coronavirus Type 229E (PCR) NotDetected (NotDetected) Nasal Coronavirus Type HKU1 (PCR) NotDetected (NotDetected) Nasal Coronavirus Type NL63 (PCR) NotDetected (NotDetected) Nasal Coronavirus Type OC43 (PCR) NotDetected (NotDetected) Nasal Enterovirus/Rhinovirus (PCR) NotDetected (NotDetected) Nasal Influenza Type A (H1) (PCR) NotDetected (NotDetected) Nasal Influenza Type A (H3) (PCR) NotDetected (NotDetected) Nasal Swab Influenza Virus B (PCR) NotDetected (NotDetected) Nasal Parainfluenza Type 1 (PCR) NotDetected (NotDetected) Nasal Parainfluenza Type 2 (PCR) NotDetected (NotDetected) Nasal Parainfluenza Type 3 (PCR) NotDetected (NotDetected) Nasal Parainfluenza Type 4 (PCR) NotDetected (NotDetected) Nasal Resp Syncytial Virus (PCR) NotDetected (NotDetected) Nasal Bordetella pertussis DNA (PCR NotDetected (NotDetected) Nasal Chlamydophila pneumoniae (PCR NotDetected (NotDetected) Nasal Human Metapneumovirus (PCR) NotDetected (NotDetected) Nasal Mycoplasma pneumoniae (PCR) NotDetected (NotDetected) Nasal SARS-CoV-2 (PCR) NotDetected (NotDetected) Influenza A (PCR) NotDetected (NotDetected) Influenza Type A (H1N1/) (PCR) NotDetected (NotDetected) Activated Partial Thromboplast Time 66.8 SEC (22.5-33.1) 67.5 SEC (22.5-33.1) Troponin I High Sensitivity 3793 ng/L (0-50) VTE VTE Risk Total Score: >5 VTE Risk Score VTE Risk: Score 0-1 = Low Risk (Aggressive mobilization; early ambulation; no VTE prophylaxis required) Score 2: Moderate Risk (Intermittent/Pneumatic Compression Device OR Lovenox/Heparin/Coumadin) Score 3-4: High Risk (Intermittent/Pneumatic Compression Device AND Lovenox/Heparin/Coumadin) Score > or =5: Highest Risk (Intermittent/Pneumatic Compression Device AND Lovenox/Heparin/Coumadin) VTE VTE Present on Admission: No Currently receiving anticoagul: No VTE Risk Total Score: >5 Assessment/Plan Assessment/Plan Assessment/Plan Tele Intensivisit Overnight Note 1: ARF, hypoxia 2: Cardiac Arrest x 1 PEA 3: ROSARIO - LHC with no occlusions, no STARR - Stop DAPT. Stop hep gtt - stop fent gtt in am, PS 5/5, extubate in the am - check procalc, wean off abx if neg - suspicious of respiratory induced arrest (bronchospasm, AECOPD) - Reagan for dvt proph JOÃO BUSH Jr. DO Aug 14, 2022 00:29
--- NOTE | 2022-08-14 01:13 | CNH ---
DATE OF CONSULTATION: 08/13/2022 DICTATOR NAME: URSZULA FERNANDEZ DO REASON FOR CONSULTATION: Cardiopulmonary arrest. HISTORY OF PRESENT ILLNESS: This is a 61-year-old female who presented to the Emergency Room with progressively worsening shortness of breath and tachypnea. She apparently went into cardiopulmonary arrest in the Emergency Room and ACLS protocol was initiated. ROSC was attained after 10-minutes. The patient was subsequently intubated and sedated. EKG revealed sinus tachycardia with an intraventricular conduction delay, left atrial abnormality. A consultation was placed to Cardiology Service for evaluation. CT angiography of the chest revealed extensive lower lung consolidation with ground glass opacities in the upper lung consistent with extensive multifocal pneumonia. The patient is currently febrile with a T-max of 100.9 degrees Fahrenheit. ProBNP was also noted to be elevated, suggestive of decompensated heart failure. High-sensitive troponin was also noted to be elevated; however, this was obtained post-chest compressions and so it is expected to be elevated. PAST MEDICAL HISTORY: Significant for, * Hypertension. * Hyperlipidemia. PAST SURGICAL HISTORY: Reported history of cholecystectomy. ALLERGIES: No known drug allergies. MEDICATIONS: See MAR. FAMILY HISTORY: No reported family history of premature CAD or sudden cardiac . SOCIAL HISTORY: Urine drug screen is positive for marijuana. REVIEW OF SYSTEMS: Unable to obtain at this time due to the patient's current clinical state. PHYSICAL EXAMINATION: VITAL SIGNS: Temperature was 100.9 degrees Fahrenheit, blood pressure was 165/71, pulse was 63. FiO2 is 40% with pulse oximetry of 100% on mechanical ventilation. GENERAL: Intubated/sedated. HEENT: Normocephalic, atraumatic. Pupils equally round, reactive to light and accommodation. CARDIAC: S1, S2. No gallops, murmurs, rubs, or clicks. LUNGS: Decreased breath sounds bilaterally. No wheezing, rhonchi or rales. ABDOMEN: Soft, nontender, nondistended. Positive bowel sounds in all 4 quadrants. EXTREMITIES: No cyanosis, no clubbing, no edema, +2 pedal pulses palpable bilaterally. NEUROLOGIC: Unable to obtain due to the patient's current clinical state. IMPRESSION: * Status post cardiopulmonary arrest. * Acute decompensated heart failure secondary to unknown etiology at this time. * Extensive lower lung consolidation with ground glass opacities in the upper lungs consistent with extensive multifocal pneumonia. * Acute febrile episode with a T-max of 100.9 degrees Fahrenheit. * Elevated white blood cell count that is currently trending up. * Acute non-ST elevation myocardial infarction -- cannot exclude true ACS versus elevated troponins post-ACLS and chest compressions. * Presumed new left bundle branch block on ECG. * Congestive hepatopathy. * Hypertension. * Hyperlipidemia. * Ventilator-dependent respiratory failure. RECOMMENDATIONS: This is a 61-year-old female who presented to the Emergency Room with progressively worsening shortness of breath and tachypnea subsequently went into cardiopulmonary arrest. ACLS protocol was initiated and ROSC was attained after 10-minutes. She was subsequently intubated and sedated. Initial EKG revealed sinus tachycardia with an intraventricular conduction delay in the left atrial abnormality. Repeat EKG shows normal sinus rhythm with a left bundle branch block. She was noted to have extensive bilateral pneumonia and is currently febrile with a T-max of 100.9 degrees Fahrenheit. She is currently on broad-spectrum antibiotics by the hospitalist team. ProBNP was noted to be significantly elevated and a diagnosis of acute decompensated heart failure has been made. She was initially on vasopressors, but is currently off any vasopressors. She will be started on Lasix 40 mg IV daily. A 2D echo will be obtained to evaluate her left ventricular ejection fraction and structural integrity of her heart. She will subsequently be started on beta-xena therapy as well as ANNIE inhibitors/ARBs. High sensitive troponin is noted to be elevated. This could represent true ACS versus elevated troponins post-chest compressions and ACLS protocol. EKG shows left bundle branch block, which is presumed to be new. In view of these, she will be set up for left heart catheterization to rule out an ischemic substrate. Further recommendations will be made based on findings from left heart catheterization. She was initially started on heparin drip as well as amiodarone drip but amiodarone drip has been discontinued. Loading dose of aspirin rectally as well as Plavix via OG tube was administered to the patient. Ariel ARMIJO D.O. DR: SHAE TIMitchell: [id number] RECEIPT: [id number] EDWARD
[2022-08-14] MEDS: DUO 0.5-3(2.5) MG/3 ML IH SCH ×2 (03:44→09:14)
[2022-08-14 05:35] LABS: BASOPHIL % 0.2 % (0.0-0.2); LYMPHOCYTES # 1.29 10^3/uL1 (1.0-4.8); LYMPHOCYTES % 10.7 % (24.0-44.0); MEAN CORP HGB 28.9 pg (26-34); MONOCYTES % 7.8 % (5.0-12.0); NEUTROPHIL # 9.9 10^3/uL (1.8-7.7); NEUTROPHILS % 81.3 % (41.0-85.0); PLATELET COUNT 160 10^3/uL (150-400); RED CELL DISTRIBUTION WIDTH 14.3 % (11.5-14.5)
[2022-08-14 05:45] LABS: CARBON DIOXIDE 27.5 mmol/L (20.0-32)
--- NOTE | 2022-08-14 06:57 | NUR ---
BEDSIDE REPORT TO ONCOMING SHIFT. PT CARE RELINQUISHED.
--- NOTE | 2022-08-14 07:11 | NUR ---
Report Bedside report received care assumed at this time. Pt awake and communicating using pen and paper.
[2022-08-14] MEDS ORDERED: KCL 20MEQ/100ML 100 ML IV ONE (07:34)
[2022-08-14] MEDS ORDERED: TYLENOL PO PRN ×2 (08:00→10:30)
[2022-08-14] MEDS: PROTONIX IV IV SCH (08:19)
[2022-08-14] MEDS: VIBRAMYCIN 100 MG in NS 100ML 100 ML IV SCH ×2 (08:19→20:08)
[2022-08-14] MEDS: LASIX IV SCH (08:20)
[2022-08-14] MEDS ORDERED: PLAVIX PO SCH (09:00)
[2022-08-14 09:09] LABS: ABG PCO2 36.4 mmHg (35.0-45.0); ABG PH 7.418 (7.350-7.450); BE(B) -1.1 mmol/L (-2.0-2.0); pO2 66.7 mmHg (80.0-100.0)
--- NOTE | 2022-08-14 09:34 | PCM.EKG ---
[facility] Test Date: 2022-08-13 Test Time: 05:46:28 Pat Name: ARTURO LEES Department: Room: ICU2 A Gender: F Spa Receptionist: : 1960 Requested By: URSZULA FERNANDEZ Order Number: [id number] Reading MD: Measurements Intervals [place] Rate: 77 P: 54 [place]: 143 QRS: 17 QRSD: 146 T: 181 QT: 460 QTc: 521 Interpretive Statements Sinus rhythm Probable left atrial enlargement Left bundle branch block No previous ECG available for comparison Please click the below link to view image of tracing.
--- NOTE | 2022-08-14 09:56 | NUR ---
Ng Tube/ET tube Pts NG tube and ET tube discontinued per physician orders. Physician at bedside
[2022-08-14] MEDS ORDERED: LANOLIN HYDROUS TP ONE (10:03)
[2022-08-14] MEDS: PERIDEX MM SCH ×2 (10:22→20:10)
[2022-08-14] MEDS ORDERED: ZOFRAN IV PRN (10:30)
[2022-08-14] MEDS ORDERED: ATIVAN IV PRN (10:30)
[2022-08-14] MEDS ORDERED: COLACE PO PRN (10:30)
[2022-08-14] MEDS ORDERED: MORPHINE SULFATE IV PRN (10:30)
[2022-08-14] MEDS ORDERED: MORPHINE SULFATE ONE (10:31)
--- NOTE | 2022-08-14 10:35 | NUR ---
Morphine Pt c/o of pain, when morphine was brought in and upon explaining the med, the pt began to cry and explained she had a child from morphine, education done with pt about options for pain management and right to refuse, pt verbalized understanding at this time, Physician contacted will change the order. Medication alternative given due to the acute anxiety from the situation see MAR
--- NOTE | 2022-08-14 10:39 | PRM.PN ---
PROGRESS NOTE SUBJECTIVE Pt seen and examined this morning in the ICU. She has been off of sedation since 2PM yesterday. She did well on SBT and was extubated this morning. Her SpO2 were appropriate on 3L O2 via NC. The only pain she reported was that of the left forearm where the vasopressor infiltrated in that arm. Pt has a sore throat after extubation and NG tube removal which is to be expected but she denied any CP. She reported mild dyspnea but otherwise, she had no complaints. She did well overnight, no acute events per overnight staff. OBJECTIVE General Appearance: Awake, can shake head yes and no to answer questions HEENT: PERRLA, EOMI, no facial droop Neck: Normal Inspection, central line right side. Respiratory: Diminished breath sounds but no acute wheezing or rhonchi on auscultation, equal chest rise Cardiovascular: Regular Rate, Rhythm Gastrointestinal: Normal bowel sounds, soft, nontender, nondistended Extremities: Normal Inspection Neurologic/Psychiatric: Awake, can answer yes/no questions, no focal neurological deficit on exam. Skin: darkening of the skin on left forearm which is subcutaneous tissue necrosis. VITALS Vital Signs Date Time Temp Pulse Resp B/P (MAP) Pulse Ox O2 Delivery O2 Flow Rate FiO2 08/14/22 10:16 Nasal Cannula* 3 32 08/14/22 10:15 65 16 98 08/14/22 08:20 127/53 08/14/22 06:45 100.6 LABS/XRAYS Laboratory Tests Test 08/13/22 11:10 08/13/22 11:54 08/13/22 15:13 08/13/22 19:20 White Blood Count 17.0 10^3/uL Red Blood Count 4.83 10^6/uL Hemoglobin 13.8 g/dL Hematocrit 42.1 % Mean Corpuscular Volume 87.2 fL Mean Corpuscular Hemoglobin 28.6 pg Mean Corpuscular Hemoglobin Concent 32.8 g/dL Red Cell Distribution Width 13.7 % Platelet Count 187 10^3/uL Mean Platelet Volume 11.2 fL Neutrophils (%) (Auto) 86.9 % Lymphocytes (%) (Auto) 7.2 % Monocytes (%) (Auto) 5.4 % Neutrophils # (Auto) 14.8 10^3/uL Lymphocytes # (Auto) 1.23 10^3/uL1 Monocytes # (Auto) 0.9 10^3/uL Absolute Immature Granulocyte (auto 0.07 10^3 u/L Absolute Eosinophils (auto) 0.0 10^3/uL Immature Granulocytes % 0.40 % Eosinophils % 0.0 % Basophils % 0.1 % Basophils # 0.0 10^3/uL Activated Partial Thromboplast Time 36.1 SEC 66.8 SEC 67.5 SEC Sodium Level 142 mmol/L Potassium Level 3.4 mmol/L Chloride Level 105.0 mmol/L Carbon Dioxide Level 23.3 mmol/L Anion Gap 17.1 Blood Urea Nitrogen 30 mg/dL Creatinine 1.56 mg/dL Estimated GFR () 41.0 Est GFR (CKD-EPI)(Non-Afr [place]) 33.9 BUN/Creatinine Ratio 19.0 Glucose Level 154 mg/dL Calcium Level 7.5 mg/dL Total Bilirubin 0.3 mg/dL Aspartate Amino Transf (AST/SGOT) 189 U/L Alanine Aminotransferase (ALT/SGPT) 135 U/L Alkaline Phosphatase 162 U/L Total Creatine Kinase 282 U/L Creatine Kinase MB 7.9 ng/mL Total Protein 6.2 g/dL Albumin 2.9 g/dL Globulin 3.3 Albumin/Globulin Ratio 0.878 Nasal Adenovirus (PCR) NotDetected Nasal Coronavirus Type 229E (PCR) NotDetected Nasal Coronavirus Type HKU1 (PCR) NotDetected Nasal Coronavirus Type NL63 (PCR) NotDetected Nasal Coronavirus Type OC43 (PCR) NotDetected Nasal Enterovirus/Rhinovirus (PCR) NotDetected Nasal Influenza Type A (H1) (PCR) NotDetected Nasal Influenza Type A (H3) (PCR) NotDetected Nasal Swab Influenza Virus B (PCR) NotDetected Nasal Parainfluenza Type 1 (PCR) NotDetected Nasal Parainfluenza Type 2 (PCR) NotDetected Nasal Parainfluenza Type 3 (PCR) NotDetected Nasal Parainfluenza Type 4 (PCR) NotDetected Nasal Resp Syncytial Virus (PCR) NotDetected Nasal Bordetella pertussis DNA (PCR NotDetected Nasal Chlamydophila pneumoniae (PCR NotDetected Nasal Human Metapneumovirus (PCR) NotDetected Nasal Mycoplasma pneumoniae (PCR) NotDetected Nasal SARS-CoV-2 (PCR) NotDetected Influenza A (PCR) NotDetected Influenza Type A (H1N1/09) (PCR) NotDetected Troponin I High Sensitivity 3793 ng/L Test 08/14/22 00:36 08/14/22 04:20 08/14/22 06:36 08/14/22 08:00 Bedside Glucose 94 114 White Blood Count 12.1 10^3/uL Red Blood Count 4.19 10^6/uL Hemoglobin 12.1 g/dL Hematocrit 36.5 % Mean Corpuscular Volume 87.1 fL Mean Corpuscular Hemoglobin 28.9 pg Mean Corpuscular Hemoglobin Concent 33.2 g/dL Red Cell Distribution Width 14.3 % Platelet Count 160 10^3/uL Mean Platelet Volume 11.6 fL Neutrophils (%) (Auto) 81.3 % Lymphocytes (%) (Auto) 10.7 % Monocytes (%) (Auto) 7.8 % Neutrophils # (Auto) 9.9 10^3/uL Lymphocytes # (Auto) 1.29 10^3/uL1 Monocytes # (Auto) 1.0 10^3/uL Absolute Immature Granulocyte (auto 0.03 10^3 u/L Absolute Eosinophils (auto) 0.0 10^3/uL Immature Granulocytes % 0.20 % Eosinophils % 0.0 % Basophils % 0.2 % Basophils # 0.0 10^3/uL Sodium Level 144 mmol/L Potassium Level 3.0 mmol/L Chloride Level 107.0 mmol/L Carbon Dioxide Level 27.5 mmol/L Anion Gap 12.5 Blood Urea Nitrogen 29 mg/dL Creatinine 1.37 mg/dL Estimated GFR () 47.6 Est GFR (CKD-EPI)(Non-Afr [place]) 39.3 BUN/Creatinine Ratio 21.0 Glucose Level 110 mg/dL Calcium Level 7.7 mg/dL Total Bilirubin 0.4 mg/dL Aspartate Amino Transf (AST/SGOT) 56 U/L Alanine Aminotransferase (ALT/SGPT) 88 U/L Alkaline Phosphatase 123 U/L Total Creatine Kinase 296 U/L Total Protein 5.8 g/dL Albumin 2.6 g/dL Globulin 3.2 Albumin/Globulin Ratio 0.812 Blood Gas Sample Site RT BRACIAL ARTERY Blood Gas pH 7.418 Blood Gas PCO2 36.4 mmHg Blood Gas PO2 66.7 mmHg Blood Gas HCO3 23.0 mmol/L Blood Gas Base Excess -1.1 mmol/L [place]las Test N/A Arterial Blood Oxygen Saturation 93.1 % Deoxyhemoglobin 6.9 % Carboxyhemoglobin 0.3 % Methemoglobin 0.3 % Total Hemoglobin 12.1 % Total Oxygen Concentration 15.8 % Blood Gas Temperature 37.0 Oxygen Delivery Method (LAB) VENT Blood Gas Vent Mode AC Blood Gas Vent Rate 16 FiO2 40 % Blood Gas Tidal Volume 400 ML Blood Gas PEEP 5.0 CMH2O Total Carbon Dioxide 24.1 mmol/L Current Medications Medications (Trade) Dose Ordered Sig/Emily Route PRN Reason Start Time Stop Time Status Last Admin Dose Admin Rocuronium [place] (Zemuron) 50 mg STAT STAT IV 08/12/22 22:37 08/12/22 22:40 DC 08/12/22 22:43 Sodium Chloride 1,000 ml @ 1,200 mls/hr Q50M STAT IV 08/12/22 22:37 08/12/22 23:26 DC 08/12/22 22:16 Fentanyl Citrate (Sublimaze) 100 mcg STAT STAT IV 08/12/22 22:37 08/12/22 22:40 DC 08/12/22 22:41 Fentanyl Citrate (Sublimaze) 50 mcg STK-MED ONCE .ROUTE 08/12/22 22:39 08/12/22 22:40 DC Propofol (Diprivan) 200 mg STAT STAT IV 08/12/22 22:54 08/12/22 22:56 DC 08/12/22 22:20 Aspirin (Aspirin) 300 mg STK-MED ONCE RC 08/12/22 23:07 08/12/22 23:07 DC Aspirin (Aspirin) 300 mg STAT STAT RC 08/12/22 23:07 08/13/22 04:20 DC 08/12/22 23:07 Furosemide (Lasix) 40 mg STK-MED ONCE .ROUTE 08/12/22 23:15 08/12/22 23:15 DC Furosemide (Lasix) 80 mg STAT STAT IV 08/12/22 23:12 08/13/22 04:22 DC 08/12/22 23:15 Lorazepam (Ativan) 2 mg STAT STAT IV 08/12/22 23:43 08/12/22 23:44 DC 08/12/22 23:45 Hydralazine HCl (Apresoline) 10 mg STAT STAT IV 08/12/22 23:43 08/12/22 23:44 DC 08/12/22 23:45 Lorazepam (Ativan) 2 mg STK-MED ONCE .ROUTE 08/12/22 23:45 08/12/22 23:45 DC Rocuronium [place] (Zemuron) 50 mg STAT STAT IV 08/13/22 01:17 08/13/22 01:23 DC 08/13/22 01:15 Piperacillin Sod/ Tazobactam Sod 3.375 gm/Sodium Chloride 100 ml @ 200 mls/hr STAT STAT IV 08/13/22 01:17 08/13/22 01:46 DC 08/13/22 01:29 Vancomycin HCl 1 gm/Sodium Chloride 250 ml @ 175 mls/hr OT ONCE IV 08/13/22 01:30 08/13/22 02:55 DC 08/13/22 03:21 Heparin Sodium (Beef Lung) (Heparin 500 Unit/5 ml (100/ ml)) 5,000 unit STAT STAT IV 08/13/22 01:17 08/13/22 01:23 DC 08/13/22 01:47 Heparin Sodium/ Dextrose 500 ml @ 0 mls/hr STAT IV 08/13/22 01:17 08/13/22 01:23 DC 08/13/22 01:50 Amiodarone HCL/ Dextrose 200 ml @ 0 mls/hr STAT IV 08/13/22 01:17 08/13/22 01:59 DC Sodium Chloride 100 ml @ ud STK-MED ONCE IV 08/13/22 01:28 08/13/22 01:29 DC Heparin Sodium (Porcine) (Heparin) 5,000 unit STK-MED ONCE .ROUTE 08/13/22 01:38 08/13/22 01:38 DC Heparin Sodium/ Dextrose 500 ml @ ud STK-MED ONCE IV 08/13/22 01:38 08/13/22 01:38 DC Heparin Sodium/ Dextrose 500 ml @ 0 mls/hr TITRATE IV 08/13/22 02:00 08/13/22 22:55 DC Nitroglycerin (Nitrolingual) 1 sprays Q5M PRN TL CHEST PAIN 08/13/22 02:00 09/12/22 01:59 Pantoprazole Sodium (Protonix Iv) 40 mg OT IV 08/13/22 02:00 08/14/22 08:09 DC 08/13/22 04:18 Atorvastatin Calcium (Lipitor) 80 mg HS PO 08/13/22 21:00 09/12/22 20:59 08/13/22 22:42 Docusate Sodium (Colace) 100 mg BID PO 08/13/22 09:00 09/12/22 08:59 08/13/22 10:56 Acetaminophen (Tylenol) 1,000 mg Q6H PRN PO PAIN 1 - 3 08/13/22 02:00 08/14/22 05:40 DC Acetaminophen/ Hydrocodone Bitart ([place] 5mg) 1 ea Q6 PRN PO PAIN 4 - 6 08/13/22 02:00 09/12/22 01:59 Atropine Sulfate (Atropine Sulfate) 1 mg PRN PRN IV HR<45/min 08/13/22 02:00 08/18/22 01:59 Amiodarone HCl 150 mg/Dextrose 103 ml @ 600 mls/hr OT ONCE IV 08/13/22 02:00 08/13/22 04:21 DC 08/13/22 02:00 Aspirin (Aspirin) 300 mg DAILY RC 08/13/22 09:00 08/13/22 22:55 DC 08/13/22 10:55 Albuterol/ Ipratropium (Duo 0.5-3(2.5) Mg/3 ml) 3 ml RTQ6 08/13/22 03:00 09/12/22 02:59 08/14/22 09:14 Amiodarone HCL/ Dextrose 200 ml @ 0 mls/hr ONCE IV 08/13/22 02:00 08/13/22 02:01 DC 08/13/22 05:20 Propofol (Diprivan) Diprivan IV infusion tritra... TITRATE PRN IV AGITATION 08/13/22 02:00 08/16/22 01:59 08/13/22 11:59 Propofol (Diprivan) STAT STAT IV 08/13/22 01:59 08/13/22 04:22 DC Vancomycin HCl 1 ml @ STK-MED ONCE .ROUTE 08/13/22 03:17 08/13/22 03:17 DC Sodium Chloride 250 ml @ STK-MED ONCE .ROUTE 08/13/22 03:17 08/13/22 03:17 DC Amiodarone HCl (Cordarone) 150 mg STK-MED ONCE .ROUTE 08/13/22 05:03 08/13/22 05:04 DC Amiodarone HCL/ Dextrose 200 ml @ ud STK-MED ONCE IV 08/13/22 05:03 08/13/22 05:04 DC Fentanyl Citrate 1000 mcg/Sodium Chloride 100 ml @ 0 mls/hr IV 08/13/22 09:00 08/13/22 08:49 DC Fentanyl Citrate 2500 mcg/Sodium Chloride 250 ml @ 0 mls/hr IV 08/13/22 09:00 09/12/22 08:59 08/13/22 10:51 Ceftriaxone Sodium 1000 mg/ Sodium Chloride 100 ml @ 100 mls/hr Q24HRS IV 08/13/22 12:00 09/12/22 11:59 08/13/22 12:37 Doxycycline Hyclate 100 mg/ Sodium Chloride 100 ml @ 100 mls/hr BID IV 08/13/22 21:00 09/12/22 20:59 08/14/22 08:19 Pantoprazole Sodium (Protonix Iv) 40 mg DAILY IV 08/14/22 09:00 09/13/22 08:59 08/14/22 08:19 Chlorhexidine Gluconate (Peridex) 15 ml BID MM 08/13/22 11:00 09/12/22 10:59 08/13/22 22:42 Sterile Water (Water) 1,000 ml STK-MED ONCE .ROUTE 08/13/22 11:02 08/13/22 11:02 DC Amiodarone HCL/ Dextrose 200 ml @ ud STK-MED ONCE IV 08/13/22 11:03 08/13/22 11:03 DC Amiodarone HCL/ Dextrose 200 ml @ 0 mls/hr IV 08/13/22 11:30 08/13/22 22:55 DC 08/13/22 11:09 Clopidogrel Bisulfate (Plavix) 75 mg STK-MED ONCE .ROUTE 08/13/22 11:42 08/13/22 11:42 DC Clopidogrel Bisulfate (Plavix) 300 mg STAT STAT PO 08/13/22 11:41 08/13/22 11:48 DC 08/13/22 11:53 Clopidogrel Bisulfate (Plavix) 75 mg DAILY PO 08/14/22 09:00 08/13/22 22:55 DC Furosemide (Lasix) 40 mg DAILY IV 08/13/22 12:00 09/12/22 11:59 08/14/22 08:20 Sodium Chloride 250 ml @ ud STK-MED ONCE .ROUTE 08/13/22 12:34 08/13/22 12:34 DC Verapamil HCl (Calan) 10 mg OT ONCE IV 08/13/22 14:00 08/13/22 13:56 DC Epinephrine HCl (Epinephrine) 2 mg OT ONCE IV 08/13/22 14:00 08/13/22 13:56 DC Sodium Bicarbonate (Sodium Bicarbonate) 50 meq OT ONCE IV 08/13/22 14:00 08/13/22 13:56 DC Rocuronium [place] (Zemuron) 30 mg OT ONCE IV 08/13/22 10:30 08/13/22 20:10 DC 08/13/22 10:30 Heparin Sodium/ Sodium Chloride 1,500 ml @ ud STK-MED ONCE IV 08/13/22 20:50 08/13/22 20:51 DC Fentanyl Citrate (Sublimaze) 50 mcg STK-MED ONCE .ROUTE 08/13/22 20:50 08/13/22 20:51 DC Lidocaine HCl (Xylocaine) 20 mg STK-MED ONCE .ROUTE 08/13/22 20:51 08/13/22 20:52 DC Sodium Chloride 1,000 ml @ ud STK-MED ONCE .ROUTE 08/13/22 21:31 08/13/22 21:31 DC Hydralazine HCl (Apresoline) 20 mg STK-MED ONCE .ROUTE 08/13/22 21:44 08/13/22 21:45 DC Labetalol HCl (Trandate) 100 mg STK-MED ONCE IV 08/13/22 21:54 08/13/22 21:54 DC Docusate Sodium (Colace) 100 mg STK-MED ONCE .ROUTE 08/13/22 22:42 08/13/22 22:42 DC Docusate Sodium (Colace) 100 mg OT ONCE NG 08/13/22 22:49 08/13/22 22:50 DC 08/13/22 22:50 Aspirin (Aspirin Ec) 81 mg DAILY PO 08/14/22 09:00 09/13/22 08:59 Carvedilol (Coreg) 6.25 mg BID PO 08/14/22 09:00 09/13/22 08:59 Hydralazine HCl (Apresoline) 50 mg TID PO 08/14/22 09:00 09/13/22 08:59 Losartan Potassium (Cozaar) 50 mg DAILY PO 08/14/22 09:00 09/13/22 08:59 Hydralazine HCl (Apresoline) 10 mg Q4HR PRN IV HYPERTENSION SBP>160 08/13/22 23:00 09/12/22 22:59 Acetaminophen (Tylenol) 1,000 mg Q6H PRN PO PAIN 1 - 3 08/14/22 08:00 09/12/22 01:59 08/14/22 05:47 Potassium Chloride 100 ml @ 50 mls/hr OT ONCE IV 08/14/22 07:34 08/14/22 09:33 DC 08/14/22 08:24 Lanolin (Lanolin Hydrous) 28 gm STK-MED ONCE TP 08/14/22 10:03 08/14/22 10:03 DC ASSESSMENT & PLAN Cardiac Arrest - 6 min of Coding with 1 epi and 1 bicarb then ROSC. LHC with no acute findings yesterday. ECHO done this morning. Has been able to hold pressures and HR without vasopressors. Amiodarone discontinued 08/13. Extubated today (08/14) Leukocytosis - improving, procal repeat in AM and will wean Abx if appropriate. Initial CTA chest revealed ground glass but this was post intubation, could be interstitial edema? doxy and rocephin at this time. ROSARIO - further improving, good urine output. monitor. (will start prophylactic lovenox at this time) Hypokalemia - replacing via IV today. monitor. Magnesium on 08/12 was high. Necrotic tissue of left forearm - monitor closely. ?HTN - hydralazine and coreg, monitor BP closely THC use - counselling on cessation during course of stay. GI and DVT prophylaxis zofran prn for nausea acetaminophen and morphine prn per pain scale oral care after extubation Slowly start CLD As we continue to progress, I will discuss more of her PMHx, medications, previous surgeries, social hx. Time spent with the pt, reviewing documentation, labs, images, discussing plan with staff >75min MARTHA GASCA MD Aug 14, 2022 10:39
[2022-08-14] MEDS: COZAAR PO SCH (10:58)
[2022-08-14] MEDS: COREG PO SCH ×2 (10:58→20:08)
[2022-08-14] MEDS: ASPIRIN EC PO SCH (10:58)
[2022-08-14] MEDS: APRESOLINE PO SCH ×3 (10:59→20:08)
[2022-08-14] MEDS: LOVENOX SQ SCH (10:59)
--- NOTE | 2022-08-14 11:28 | PRM.PN ---
Assessment & Plan Provider Note: Impression: S/P PEA arrest ? primary respiratory etiology (due to CHF with pulmonary edema vs PNA) ROSARIO Rec: Cont O2 supplementation Cont current abx Cont enoxaparin for DVT proph, full a/c and DAPT stopped given non-obstructive findings on LHC Cont diuresis Cont beta blockade, afterload reduction Replete K aggressively, recheck Mg level (ordered) OOB as tolerated Cards f/u Please call at any time if we can be of assistance Bedside rounds completed with bedside provider-no other needs at this time Telecritical care providers remain available for assistance at any time Remote audiovisual assessment of patient completed via HIPAA-compliant technology Cumulative non-procedural critical care time spent in directed patient care 60 minutes LLOYD SEPULVEDA MD Aug 14, 2022 11:28
[2022-08-14] MEDS: ROCEPHIN 1,000 MG in NS 100ML 100 ML IV SCH (11:45)
--- NOTE | 2022-08-14 11:50 | PCM.ECHO ---
APPROVED REPORT EXAM: Comprehensive 2D, Doppler, and color-flow Echocardiogram. Patient Location: IN-PATIENT Indications Non STEMI 2D Dimensions RVDd 1.55 cm (0.4-1.4cm/m2) LVOT Diameter 2.06 (1.8-2.4cm) LVEF(%) 66.00 (>50%) M-Mode Dimensions RVDd 1.25 (2.1-3.2cm) Left Atrium(MM) 3.35 (2.5-4.0cm) IVSd 1.20 (0.7-1.1cm) Aortic Root 2.45 (2.2-3.7cm) LVDd 4.20 (4.0-5.6cm) Aortic Cusp Exc 1.75 (1.5-2.0cm) PWd 1.55 (0.7-1.1cm) MV EPSS 0.50 (<0.5cm) IVSs 1.45 cm FS (%) 26.90 % LVDs 3.05 (2.0-3.8cm) ESV(Teich) 37.25 ml PWs 2.15 cm LVEF(%) 52.93 (>50%) Volumes Biplane 2D LV Volumes Biplane 2D LA Volumes LVEDv A4C 82.83 mL LA ESV Index LVESv A4C 28.16 mL Aortic Valve AoV Peak Garry. 1.60 m/s AoV VTI 31.30 cm AO Peak GR. 10.90 mmHg AO Mean GR. 5.25 mmHg RADHA (VMAX) 2.02 cm2 Mitral Valve MV E Velocity 1.10m/s MR Peak Gr. 11.20mmHg MV DECEL TIME 293.00ms MV A Velocity 1.10m/s TDI E/Lateral E' 0.35 E/Medial E' 0.75 Tricuspid Valve TR P. Velocity 1.55m/s RAP ESTIMATE 8.00mmHg TR Peak Gr. 9.98mmHg LEFT VENTRICLE The left ventricle is normal size. The left ventricular systolic function is normal. The left ventricular ejection fraction is within the normal range. There is normal left ventricular wall thickness. There is normal LV segmental wall motion. Stage 1 diastolic dysfunction is present (impaired relaxation pattern). There is no ventricular septal defect visualized. No left ventricle thrombus noted on this study. LVEF is 55-60%. RIGHT VENTRICLE The right ventricle is normal size. The right ventricular systolic function is normal. There is normal right ventricular wall thickness. ATRIA The left atrium size is normal. The right atrium size is normal. The interatrial septum is intact with no evidence for an atrial septal defect. AORTIC VALVE The aortic valve is normal in structure. There is no aortic valvular stenosis. No aortic regurgitation is present. There is no aortic valvular vegetation. MITRAL VALVE The mitral valve is normal in structure. There is no mitral valve stenosis. Mild mitral regurgitation. There is no evidence of mitral valve vegetations. TRICUSPID VALVE The tricuspid valve is normal in structure. There is no tricuspid valve stenosis. Mild to moderate tricuspid regurgitation. There is no tricuspid valve vegetations. PULMONIC VALVE Pulmonic valve is not well visualized. There is no pulmonic valvular stenosis. There is no pulmonic valvular regurgitation. GREAT VESSELS The aortic root is normal in size. Pulmonary artery is not well visualized. Aortic arch is not well visualized. The IVC is normal in size and collapses >50% with inspiration. PERICARDIUM There is no pericardial effusion. There is no pleural effusion. Other Information Study Quality: Fair <Conclusion> The left ventricular systolic function is normal. LVEF is 55-60%. Stage 1 diastolic dysfunction is present (impaired relaxation pattern). Mild mitral regurgitation. Mild to moderate tricuspid regurgitation. Electronically signed by : URSZULA FERNANDEZ. 08/14/2022 11:49:42
--- NOTE | 2022-08-14 12:18 | PCM.EKG ---
[facility] Test Date: 2022-08-12 Test Time: 22:16:00 Pat Name: ARTURO LEES Department: Room: ICU2 Gender: F Manager Sap: UNKNOWN : 1960 Requested By: CANDIS HOWARD Order Number: [id number] Reading MD: Candis HOWARD Measurements Intervals [place] Rate: 91 P: 78 MA: 184 QRS: 84 QRSD: 182 T: 267 QT: 469 QTc: 578 Interpretive Statements Sinus rhythm LAE, consider biatrial enlargement IVCD, consider atypical LBBB No previous ECG available for comparison Electronically Signed On 08-15-2022 7:51:29 CDT by Candis HOWARD Please click the below link to view image of tracing.
[2022-08-14 13:08] LABS: BILIRUBIN,URINE NEGATIVE (NEGATIVE); UROBILINOGEN,URINE 0.2 E.U./dL (0.2)
--- NOTE | 2022-08-14 14:38 | PRM.PN ---
Subjective Subjective Date: Aug 14, 2022 Time: 14:33 Subjective Patient resting comfortably No chest pain, sob or palpitations Review of Systems Constitutional: No: Fever, Chills, Sweats, Weakness, Malaise, Other Eyes: No: Pain, Vision change, Conjunctivae inflammation, Eyelid inflammation, Other, Redness ENT: No: Ear pain, Ear discharge, Nose pain, Nose discharge, Nose congestion, Mouth pain, Mouth swelling, Throat pain, Throat swelling, Other Respiratory: No: Cough, Dry, Shortness of breath, SOB with excertion, Wheezing, Hemoptysis, Pleuritic Pain, Sputum, Wheezing, Other Gastrointestinal: No: Nausea, Vomiting, Abdominal Pain, Diarrhea, Constipation, Melena, Hematochezia, Other Musculoskeletal: No: other, neck pain, shoulder pain, arm pain, back pain, hand pain, leg pain, foot pain Allergies: Coded Allergies: No Known Drug Allergies (Verified Allergy, Unknown, 08/13/22) Objective Vitals and I/O Vital Sign - Last 24 Hours 08/13/22 08/13/22 08/13/22 08/13/22 14:43 14:45 15:00 15:00 Temp 100.6 100.6 100.6 Pulse 61 63 63 B/P (MAP) 121/58 (79) 122/46 (71) 131/65 (87) Pulse Ox 100 100 100 O2 Delivery Ventilator+ Ventilator+ Ventilator+ FiO2 40 40 40 40 08/13/22 08/13/22 08/13/22 08/13/22 15:00 15:10 15:15 15:19 Temp 100.4 100.4 100.2 Pulse 65 66 66 B/P (MAP) 144/60 (88) 143/63 (89) 154/70 (98) Pulse Ox 100 100 100 O2 Delivery Mechanical Ventilator Ventilator+ Ventilator+ Ventilator+ FiO2 40 40 40 08/13/22 08/13/22 08/13/22 08/13/22 15:21 15:22 15:23 15:29 Temp 99.9 Pulse 67 63 62 65 Resp 16 16 16 B/P (MAP) 144/60 (88) Pulse Ox 100 100 100 100 O2 Delivery Ventilator+ Ventilator+ Ventilator+ FiO2 40 40 40 40 08/13/22 08/13/22 08/13/22 08/13/22 15:30 15:35 15:40 15:45 Temp 99.9 99.9 99.9 99.9 Pulse 63 63 65 67 B/P (MAP) 135/63 (87) 125/60 (81) 136/69 (91) 134/44 (74) Pulse Ox 100 100 100 100 O2 Delivery Ventilator+ Ventilator+ Ventilator+ Ventilator+ FiO2 40 40 40 40 08/13/22 08/13/22 08/13/22 08/13/22 15:50 15:55 16:01 16:05 Temp 99.9 99.7 99.7 99.7 Pulse 62 62 66 64 B/P (MAP) 114/59 (77) 129/66 (87) 173/75 (107) 168/72 (104) Pulse Ox 100 100 99 97 O2 Delivery Ventilator+ Ventilator+ Ventilator+ Ventilator+ FiO2 40 40 40 40 08/13/22 08/13/22 08/13/22 08/13/22 16:10 16:15 16:30 16:45 Temp 99.5 99.5 99.5 99.5 Pulse 61 62 62 62 B/P (MAP) 146/67 (93) 150/72 (98) 139/62 (87) 141/64 (89) Pulse Ox 100 100 100 100 O2 Delivery Ventilator+ Ventilator+ Ventilator+ Ventilator+ FiO2 40 40 40 40 08/13/22 08/13/22 08/13/22 08/13/22 17:00 17:15 17:30 17:45 Temp 99.3 99.3 99.3 99.5 Pulse 62 63 66 62 B/P (MAP) 142/65 (90) 147/78 (101) 152/69 (96) 146/71 (96) Pulse Ox 100 97 97 99 O2 Delivery Ventilator+ Ventilator+ Ventilator+ Ventilator+ FiO2 40 40 40 40 08/13/22 08/13/22 08/13/22 08/13/22 18:00 18:15 18:30 18:45 Temp 99.5 99.5 99.5 99.7 Pulse 61 65 63 62 B/P (MAP) 144/69 (94) 150/67 (94) 138/65 (89) 137/59 (85) Pulse Ox 99 99 100 100 O2 Delivery Ventilator+ Ventilator+ Ventilator+ Ventilator+ FiO2 40 40 40 40 08/13/22 08/13/22 08/13/22 08/13/22 19:00 19:15 19:30 19:45 Temp 99.7 99.9 99.7 99.9 Pulse 62 62 63 64 B/P (MAP) 145/65 (91) 147/70 (95) 165/71 (102) 163/72 (102) Pulse Ox 100 100 100 100 O2 Delivery Ventilator+ Ventilator+ Ventilator+ Ventilator+ FiO2 40 40 40 40 08/13/22 08/13/22 08/13/22 08/13/22 20:00 20:15 20:18 20:18 Temp 99.9 99.9 Pulse 62 61 58 Resp 16 B/P (MAP) 168/58 (94) 150/61 (90) Pulse Ox 100 98 97 O2 Delivery Ventilator+ Ventilator+ Mechanical Ventilator FiO2 40 40 40 08/13/22 08/13/22 08/13/22 08/13/22 20:30 20:34 20:34 20:34 Temp 99.9 Pulse 59 59 59 59 Resp 16 16 16 B/P (MAP) 147/61 (89) Pulse Ox 99 99 99 99 O2 Delivery Ventilator+ Ventilator+ Ventilator+ Ventilator+ FiO2 40 40 40 40 08/13/22 08/13/22 08/13/22 08/13/22 20:34 20:45 21:00 21:15 Temp 99.9 99.9 99.9 Pulse 59 58 59 61 Resp 16 B/P (MAP) 143/61 (88) 143/58 (86) 168/73 (104) Pulse Ox 99 100 99 99 O2 Delivery Ventilator+ Ventilator+ Ventilator+ FiO2 40 40 40 08/13/22 08/13/22 08/13/22 08/13/22 21:30 21:45 22:52 23:00 Pulse 75 59 Resp 16 16 B/P (MAP) 186/79 (114) 171/104 (126) 133/54 (80) 87/44 (58) Pulse Ox 95 98 O2 Delivery Ventilator+ Ventilator+ Ventilator+ Ventilator+ FiO2 40 40 40 40 08/13/22 08/13/22 08/13/22 08/14/22 23:15 23:30 23:45 00:00 Pulse 57 55 55 54 Resp 16 16 16 16 B/P (MAP) 90/44 (59) 98/42 (60) 109/47 (67) 120/51 (74) Pulse Ox 98 98 98 98 O2 Delivery Ventilator+ Ventilator+ Ventilator+ Ventilator+ FiO2 40 40 40 40 08/14/22 08/14/22 08/14/22 08/14/22 00:15 00:30 00:45 00:54 Pulse 54 60 56 Resp 16 16 16 B/P (MAP) 122/51 (74) 129/55 (79) 136/47 (76) Pulse Ox 99 100 99 O2 Delivery Ventilator+ Ventilator+ Ventilator+ Mechanical Ventilator FiO2 40 40 40 08/14/22 08/14/22 08/14/22 08/14/22 00:54 01:00 01:14 01:15 Temp 99.7 Pulse 58 54 54 57 Resp 16 16 16 16 B/P (MAP) 134/64 (87) 113/54 (73) Pulse Ox 100 99 99 100 O2 Delivery Ventilator+ Ventilator+ FiO2 40 40 40 08/14/22 08/14/22 08/14/22 08/14/22 01:30 01:46 02:00 02:15 Temp 99.7 99.9 99.9 99.9 Pulse 56 63 59 60 Resp 16 16 16 16 B/P (MAP) 112/52 (72) 122/60 (80) 116/52 (73) 123/57 (79) Pulse Ox 100 99 99 100 O2 Delivery Ventilator+ Ventilator+ Ventilator+ Ventilator+ FiO2 40 40 40 40 08/14/22 08/14/22 08/14/22 08/14/22 02:30 02:45 03:00 03:04 Temp 100.0 100.0 100.2 Pulse 61 62 61 61 Resp 16 16 16 16 B/P (MAP) 126/60 (82) 122/50 (74) 121/54 (76) Pulse Ox 100 100 100 100 O2 Delivery Ventilator+ Ventilator+ Ventilator+ Ventilator+ FiO2 40 40 40 40 08/14/22 08/14/22 08/14/22 08/14/22 03:04 03:15 03:30 03:45 Temp 100.2 100.6 100.4 Pulse 61 68 64 72 Resp 16 16 16 16 B/P (MAP) 118/59 (78) 135/56 (82) 127/52 (77) Pulse Ox 100 100 100 99 O2 Delivery Ventilator+ Ventilator+ Ventilator+ Ventilator+ FiO2 40 40 40 40 08/14/22 08/14/22 08/14/22 08/14/22 04:00 04:15 04:27 04:27 Temp 100.6 100.6 Pulse 65 67 63 Resp 16 16 16 B/P (MAP) 127/52 (77) 132/54 (80) Pulse Ox 100 98 98 O2 Delivery Ventilator+ Ventilator+ Mechanical Ventilator FiO2 40 40 40 08/14/22 08/14/22 08/14/22 08/14/22 04:30 04:45 04:49 05:00 Temp 100.4 100.4 100.4 Pulse 64 68 68 67 Resp 16 16 16 16 B/P (MAP) 129/56 (80) 136/60 (85) 114/56 (75) Pulse Ox 97 98 98 98 O2 Delivery Ventilator+ Ventilator+ Ventilator+ FiO2 40 40 40 08/14/22 08/14/22 08/14/22 08/14/22 05:15 05:30 05:45 06:00 Temp 100.6 100.6 100.6 100.6 Pulse 69 66 67 62 Resp 16 16 16 16 B/P (MAP) 144/65 (91) 140/60 (86) 138/61 (86) 133/77 (95) Pulse Ox 99 100 98 98 O2 Delivery Ventilator+ Ventilator+ Ventilator+ Ventilator+ FiO2 40 40 40 40 08/14/22 08/14/22 08/14/22 08/14/22 06:15 06:30 06:45 07:00 Temp 100.6 100.6 100.6 100.4 Pulse 67 66 64 63 Resp 16 16 16 B/P (MAP) 139/62 (87) 140/52 (81) 127/48 (74) 117/38 (64) Pulse Ox 99 97 98 98 O2 Delivery Ventilator+ Ventilator+ Ventilator+ Ventilator+ FiO2 40 40 40 40 08/14/22 08/14/22 08/14/22 08/14/22 07:15 07:30 07:45 07:58 Temp 100.4 100.4 100.4 Pulse 75 61 62 B/P (MAP) 143/62 (89) 102/47 (65) 108/39 (62) Pulse Ox 96 97 97 O2 Delivery Ventilator+ Ventilator+ Ventilator+ Mechanical Ventilator FiO2 40 40 40 08/14/22 08/14/22 08/14/22 08/14/22 08:00 08:01 08:15 08:16 Temp 100.4 100.4 100.4 Pulse 63 65 66 61 Resp 16 B/P (MAP) 111/53 (72) 169/45 (86) Pulse Ox 97 98 97 96 O2 Delivery Ventilator+ Ventilator+ Ventilator+ FiO2 40 40 40 40 08/14/22 08/14/22 08/14/22 08/14/22 08:20 08:30 08:45 09:00 Temp 100.4 100.2 100.2 Pulse 59 69 57 B/P (MAP) 127/53 127/53 (77) 141/52 (81) 115/53 (73) Pulse Ox 96 98 97 O2 Delivery Ventilator+ Ventilator+ Ventilator+ FiO2 40 40 40 08/14/22 08/14/22 08/14/22 08/14/22 09:14 09:14 09:15 09:30 Temp 100.2 Pulse 65 65 59 65 Resp 16 16 16 B/P (MAP) 118/51 (73) Pulse Ox 98 98 97 98 O2 Delivery Ventilator+ Ventilator+ Ventilator+ Ventilator+ O2 Flow Rate 40 40 FiO2 40 40 40 40 08/14/22 08/14/22 08/14/22 08/14/22 09:30 09:32 09:43 09:45 Temp 100.0 100.0 100.0 Pulse 60 67 61 B/P (MAP) Pulse Ox 98 97 97 O2 Delivery Ventilator+ Ventilator+ Ventilator+ FiO2 32 32 40 32 08/14/22 08/14/22 08/14/22 08/14/22 09:46 10:00 10:01 10:15 Temp 100.2 100.0 100.0 100.0 Pulse 60 66 61 72 B/P (MAP) 143/54 (83) 172/82 (112) Pulse Ox 97 98 98 98 O2 Delivery Ventilator+ Nasal Cannula* Nasal Cannula* Nasal Cannula* O2 Flow Rate 3 3 3 FiO2 32 32 32 32 08/14/22 08/14/22 08/14/22 08/14/22 10:15 10:16 10:30 10:45 Temp 100.0 100.0 Pulse 65 78 64 Resp 16 22 B/P (MAP) 166/79 (108) 135/63 (87) Pulse Ox 98 96 97 O2 Delivery Nasal Cannula* Nasal Cannula* Nasal Cannula* O2 Flow Rate 3 3 2 FiO2 32 32 28 08/14/22 08/14/22 08/14/22/20/23 10:58 10:59 11:00 11:02 Temp 100.2 100.2 Pulse 72 98 80 Resp 20 13 B/P (MAP) 169/72 169/72 182/87 (118) Pulse Ox 98 97 O2 Delivery Nasal Cannula* Nasal Cannula* O2 Flow Rate 2 2 FiO2 08/14/22 08/14/22 08/14/22 08/14/22 11:15 11:30 11:45 12:00 Temp 100.2 100.0 100.0 99.9 Pulse 71 68 70 68 Resp 12 13 12 13 B/P (MAP) 169/72 (104) 130/67 (88) 124/64 (84) 127/55 (79) Pulse Ox 96 96 97 97 O2 Delivery Nasal Cannula* Nasal Cannula* Nasal Cannula* Nasal Cannula* O2 Flow Rate 2 2 2 2 FiO2 28 08/14/22 08/14/22 08/14/22 08/14/22 12:15 12:30 12:45 13:00 Temp 100.0 100.0 100.0 Pulse 69 66 67 Resp 14 14 B/P (MAP) 152/63 (92) 152/65 (94) 161/54 (89) 154/62 (92) Pulse Ox 98 97 97 95 O2 Delivery Nasal Cannula* Nasal Cannula* Nasal Cannula* Nasal Cannula* O2 Flow Rate 2 2 2 2 FiO2 08/14/22 13:01 O2 Delivery Nasal Cannula O2 Flow Rate 2.00 Intake and Output 08/14/22 07:00 Intake Total 1591.3 ml Output Total 1563 ml Balance 28.3 ml General: Alert, Oriented X3 HEENT: Atraumatic, PERRLA, EOMI Neck: Supple, No JVD Lungs: Clear to auscultation Heart: Regular rate, Normal S1, Normal S2 Extremities: No clubbing, No cyanosis, No edema Neuro: Normal speech, Strength at 5/5 X4 ext All Results(Lab/Rad) Laboratory Tests Test 08/12/22 22:35 08/12/22 22:37 08/12/22 22:57 08/12/22 23:15 White Blood Count 14.1 10^3/uL (4.5-11.0) Red Blood Count 4.66 10^6/uL (4.00-5.20) Hemoglobin 13.3 g/dL (12.0-15.0) Hematocrit 43.4 % (36.0-46.0) Mean Corpuscular Volume 93.1 fL (78-100) Mean Corpuscular Hemoglobin 28.5 pg (26-34) Mean Corpuscular Hemoglobin Concent 30.6 g/dL (33-36.5) Red Cell Distribution Width 13.6 % (11.5-14.5) Platelet Count 220 10^3/uL (150-400) Mean Platelet Volume 11.0 fL (7.8-11.0) Neutrophils (%) (Auto) 43.4 % (41.0-85.0) Lymphocytes (%) (Auto) 50.1 % (24.0-44.0) Monocytes (%) (Auto) 4.1 % (5.0-12.0) Neutrophils # (Auto) 6.1 10^3/uL (1.8-7.7) Lymphocytes # (Auto) 7.07 10^3/uL1 (1.0-4.8) Monocytes # (Auto) 0.6 10^3/uL (0.3-0.8) Absolute Immature Granulocyte (auto 0.31 10^3 u/L (0-2) Absolute Eosinophils (auto) 0.3 10^3/uL (0.0-0.2) Immature Granulocytes % 2.20 % (0.00-0.50) Eosinophils % 1.8 % (0.0-5.0) Basophils % 0.6 % (0.0-0.2) Basophils # 0.1 10^3/uL (0.0-0.1) Prothrombin Time 11.2 SEC (9.1-11.5) INR International Normalized Ratio 1.1 Activated Partial Thromboplast Time 51.1 SEC (22.5-33.1) D-Dimer 21.17 mg/L (0.19-0.49) Sodium Level 145 mmol/L (132-145) Potassium Level 3.1 mmol/L (3.6-5.2) Chloride Level 105.0 mmol/L (96-109) Carbon Dioxide Level 14.5 mmol/L (20.0-32) Anion Gap 28.6 Blood Urea Nitrogen 16 mg/dL (7-18) Creatinine 1.41 mg/dL (0.59-1.40) Estimated GFR () 46.0 (>/=60) Est GFR (CKD-EPI)(Non-Afr Russian) 38.0 (>/=60) BUN/Creatinine Ratio 11.0 Glucose Level 355 mg/dL (70-110) Calcium Level 8.3 mg/dL (8.4-10.5) Magnesium Level 2.6 mg/dL (1.8-2.4) Total Bilirubin 0.2 mg/dL (0.2-1.0) Aspartate Amino Transf (AST/SGOT) 152 U/L (0-35) Alanine Aminotransferase (ALT/SGPT) 104 U/L (12-78) Alkaline Phosphatase 152 U/L (50-136) Total Creatine Kinase 184 U/L (26-192) Creatine Kinase MB 4.9 ng/mL (0.5-3.6) Troponin I High Sensitivity 316 ng/L (0-50) Pro-B-Type Natriuretic Peptide 9118 pg/mL (0-125) Total Protein 5.8 g/dL (6.4-8.2) Albumin 2.5 g/dL (3.4-5.0) Globulin 3.3 Albumin/Globulin Ratio 0.757 Procalcitonin 0.05 ng/mL (0.05-0.5) Bedside Glucose 288 (70 - 110) Segmented Neutrophils 49 % (31-76) Lymphocytes 45 % (25-36) Monocytes 3 % (3-9) Absolute Eosinophils (Manual) 3 % (1-4) Platelet Estimate ADEQUATE Platelet Morphology NORMAL Urine Opiates Screen NEGATIVE (c/o300ng/mL) Urine Methadone Screen NEGATIVE (c/o300ng/mL) Urine Barbiturates Screen NEGATIVE (c/o200ng/mL) Urine Phencyclidine Screen NEGATIVE (c/o 25ng/mL) Ur Amphetamine/Methamphetamine NEGATIVE (qf6331nj/mL) Urine MDMA Screen (Ecstasy) NEGATIVE (c/o300ng/mL) Urine Benzodiazepines Screen NEGATIVE (c/o200ng/mL) Urine Cocaine Metabolite Screen NEGATIVE (c/o300ng/mL) Ur Tetrahydrocannabinol (THC) Scrn PRESUMPTIVE POSITIVE (c/o Test 08/12/22 23:30 08/12/22 23:35 08/13/22 01:43 08/13/22 03:50 Blood Gas Sample Site RB Arterial Blood Oxygen Saturation 93.6 % (94.0-97.00) Blood Gas Temperature 37 Triglycerides Level 201 mg/dL (20-200) Lactic Acid Level 14.5 mmol/L (0.5-1.9) Lactic Acid Followup at 2 Hours 1.2 mmol/L (0.5-1.9) Total Creatine Kinase 250 U/L (26-192) Creatine Kinase MB 10.3 ng/mL (0.5-3.6) Troponin I High Sensitivity 1948 ng/L (0-50) Test 08/13/22 04:30 08/13/22 05:08 08/13/22 10:09 08/13/22 11:10 Blood Gas Sample Site RT BRACIAL ARTERY RT BRACIAL ARTERY Arterial Blood Oxygen Saturation 96.2 % (94.0-97.00) 97.3 % (94.0-97.00) Blood Gas Temperature 37 37.0 Activated Partial Thromboplast Time 98.9 SEC (22.5-33.1) 36.1 SEC (22.5-33.1) Blood Gas pH 7.431 (7.350-7.450) Blood Gas PCO2 32.4 mmHg (35.0-45.0) Blood Gas PO2 93.5 mmHg (80.0-100.0) Blood Gas HCO3 21.1 mmol/L (22.0-26.0) Blood Gas Base Excess -2.3 mmol/L (-2.0-2.0) D[place] Test N/A Deoxyhemoglobin 2.6 % (0.0-5.0) Carboxyhemoglobin 2.3 % (0.0-3.9) Methemoglobin 0.1 % (0.00-5.0) Total Hemoglobin 14.7 % (12.0-17.8) Total Oxygen Concentration 19.7 % (13.5-17.5) Oxygen Delivery Method (LAB) VENT Blood Gas Vent Mode AC Blood Gas Vent Rate 16 FiO2 40 % (20-101) Blood Gas Tidal Volume 400 ML Blood Gas PEEP 8.0 CMH2O Total Carbon Dioxide 22.1 mmol/L (23-27) White Blood Count 17.0 10^3/uL (4.5-11.0) Red Blood Count 4.83 10^6/uL (4.00-5.20) Hemoglobin 13.8 g/dL (12.0-15.0) Hematocrit 42.1 % (36.0-46.0) Mean Corpuscular Volume 87.2 fL (78-100) Mean Corpuscular Hemoglobin 28.6 pg (26-34) Mean Corpuscular Hemoglobin Concent 32.8 g/dL (33-36.5) Red Cell Distribution Width 13.7 % (11.5-14.5) Platelet Count 187 10^3/uL (150-400) Mean Platelet Volume 11.2 fL (7.8-11.0) Neutrophils (%) (Auto) 86.9 % (41.0-85.0) Lymphocytes (%) (Auto) 7.2 % (24.0-44.0) Monocytes (%) (Auto) 5.4 % (5.0-12.0) Neutrophils # (Auto) 14.8 10^3/uL (1.8-7.7) Lymphocytes # (Auto) 1.23 10^3/uL1 (1.0-4.8) Monocytes # (Auto) 0.9 10^3/uL (0.3-0.8) Absolute Immature Granulocyte (auto 0.07 10^3 u/L (0-2) Absolute Eosinophils (auto) 0.0 10^3/uL (0.0-0.2) Immature Granulocytes % 0.40 % (0.00-0.50) Eosinophils % 0.0 % (0.0-5.0) Basophils % 0.1 % (0.0-0.2) Basophils # 0.0 10^3/uL (0.0-0.1) Sodium Level 142 mmol/L (132-145) Potassium Level 3.4 mmol/L (3.6-5.2) Chloride Level 105.0 mmol/L (96-109) Carbon Dioxide Level 23.3 mmol/L (20.0-32) Anion Gap 17.1 Blood Urea Nitrogen 30 mg/dL (7-18) Creatinine 1.56 mg/dL (0.59-1.40) Estimated GFR () 41.0 (>/=60) Est GFR (CKD-EPI)(Non-Afr Russian) 33.9 (>/=60) BUN/Creatinine Ratio 19.0 Glucose Level 154 mg/dL (70-110) Calcium Level 7.5 mg/dL (8.4-10.5) Total Bilirubin 0.3 mg/dL (0.2-1.0) Aspartate Amino Transf (AST/SGOT) 189 U/L (0-35) Alanine Aminotransferase (ALT/SGPT) 135 U/L (12-78) Alkaline Phosphatase 162 U/L (50-136) Total Creatine Kinase 282 U/L (26-192) Creatine Kinase MB 7.9 ng/mL (0.5-3.6) Total Protein 6.2 g/dL (6.4-8.2) Albumin 2.9 g/dL (3.4-5.0) Globulin 3.3 Albumin/Globulin Ratio 0.878 Test 08/13/22 11:54 08/13/22 15:13 08/13/22 19:20 08/14/22 00:36 Nasal Adenovirus (PCR) NotDetected (NotDetected) Nasal Coronavirus Type 229E (PCR) NotDetected (NotDetected) Nasal Coronavirus Type HKU1 (PCR) NotDetected (NotDetected) Nasal Coronavirus Type NL63 (PCR) NotDetected (NotDetected) Nasal Coronavirus Type OC43 (PCR) NotDetected (NotDetected) Nasal Enterovirus/Rhinovirus (PCR) NotDetected (NotDetected) Nasal Influenza Type A (H1) (PCR) NotDetected (NotDetected) Nasal Influenza Type A (H3) (PCR) NotDetected (NotDetected) Nasal Swab Influenza Virus B (PCR) NotDetected (NotDetected) Nasal Parainfluenza Type 1 (PCR) NotDetected (NotDetected) Nasal Parainfluenza Type 2 (PCR) NotDetected (NotDetected) Nasal Parainfluenza Type 3 (PCR) NotDetected (NotDetected) Nasal Parainfluenza Type 4 (PCR) NotDetected (NotDetected) Nasal Resp Syncytial Virus (PCR) NotDetected (NotDetected) Nasal Bordetella pertussis DNA (PCR NotDetected (NotDetected) Nasal Chlamydophila pneumoniae (PCR NotDetected (NotDetected) Nasal Human Metapneumovirus (PCR) NotDetected (NotDetected) Nasal Mycoplasma pneumoniae (PCR) NotDetected (NotDetected) Nasal SARS-CoV-2 (PCR) NotDetected (NotDetected) Influenza A (PCR) NotDetected (NotDetected) Influenza Type A (H1N1/09) (PCR) NotDetected (NotDetected) Activated Partial Thromboplast Time 66.8 SEC (22.5-33.1) 67.5 SEC (22.5-33.1) Troponin I High Sensitivity 3793 ng/L (0-50) Bedside Glucose 94 (70 - 110) Test 08/14/22 04:20 08/14/22 06:36 08/14/22 08:00 White Blood Count 12.1 10^3/uL (4.5-11.0) Red Blood Count 4.19 10^6/uL (4.00-5.20) Hemoglobin 12.1 g/dL (12.0-15.0) Hematocrit 36.5 % (36.0-46.0) Mean Corpuscular Volume 87.1 fL (78-100) Mean Corpuscular Hemoglobin 28.9 pg (26-34) Mean Corpuscular Hemoglobin Concent 33.2 g/dL (33-36.5) Red Cell Distribution Width 14.3 % (11.5-14.5) Platelet Count 160 10^3/uL (150-400) Mean Platelet Volume 11.6 fL (7.8-11.0) Neutrophils (%) (Auto) 81.3 % (41.0-85.0) Lymphocytes (%) (Auto) 10.7 % (24.0-44.0) Monocytes (%) (Auto) 7.8 % (5.0-12.0) Neutrophils # (Auto) 9.9 10^3/uL (1.8-7.7) Lymphocytes # (Auto) 1.29 10^3/uL1 (1.0-4.8) Monocytes # (Auto) 1.0 10^3/uL (0.3-0.8) Absolute Immature Granulocyte (auto 0.03 10^3 u/L (0-2) Absolute Eosinophils (auto) 0.0 10^3/uL (0.0-0.2) Immature Granulocytes % 0.20 % (0.00-0.50) Eosinophils % 0.0 % (0.0-5.0) Basophils % 0.2 % (0.0-0.2) Basophils # 0.0 10^3/uL (0.0-0.1) Sodium Level 144 mmol/L (132-145) Potassium Level 3.0 mmol/L (3.6-5.2) Chloride Level 107.0 mmol/L (96-109) Carbon Dioxide Level 27.5 mmol/L (20.0-32) Anion Gap 12.5 Blood Urea Nitrogen 29 mg/dL (7-18) Creatinine 1.37 mg/dL (0.59-1.40) Estimated GFR () 47.6 (>/=60) Est GFR (CKD-EPI)(Non-Afr Russian) 39.3 (>/=60) BUN/Creatinine Ratio 21.0 Glucose Level 110 mg/dL (70-110) Calcium Level 7.7 mg/dL (8.4-10.5) Total Bilirubin 0.4 mg/dL (0.2-1.0) Aspartate Amino Transf (AST/SGOT) 56 U/L (0-35) Alanine Aminotransferase (ALT/SGPT) 88 U/L (12-78) Alkaline Phosphatase 123 U/L (50-136) Total Creatine Kinase 296 U/L (26-192) Total Protein 5.8 g/dL (6.4-8.2) Albumin 2.6 g/dL (3.4-5.0) Globulin 3.2 Albumin/Globulin Ratio 0.812 Bedside Glucose 114 (70 - 110) Blood Gas Sample Site RT BRACIAL ARTERY Blood Gas pH 7.418 (7.350-7.450) Blood Gas PCO2 36.4 mmHg (35.0-45.0) Blood Gas PO2 66.7 mmHg (80.0-100.0) Blood Gas HCO3 23.0 mmol/L (22.0-26.0) Blood Gas Base Excess -1.1 mmol/L (-2.0-2.0) [place] Test N/A Arterial Blood Oxygen Saturation 93.1 % (94.0-97.00) Deoxyhemoglobin 6.9 % (0.0-5.0) Carboxyhemoglobin 0.3 % (0.0-3.9) Methemoglobin 0.3 % (0.00-5.0) Total Hemoglobin 12.1 % (12.0-17.8) Total Oxygen Concentration 15.8 % (13.5-17.5) Blood Gas Temperature 37.0 Oxygen Delivery Method (LAB) VENT Blood Gas Vent Mode AC Blood Gas Vent Rate 16 FiO2 40 % (20-101) Blood Gas Tidal Volume 400 ML Blood Gas PEEP 5.0 CMH2O Total Carbon Dioxide 24.1 mmol/L (23-27) Assessment/Plan Assessment/Plan Assessment/Plan * Status post cardiopulmonary arrest. * Acute decompensated heart failure secondary to diastolic dysfunction * Extensive lower lung consolidation with ground glass opacities in the upper lungs consistent with extensive multifocal pneumonia. * Acute febrile episode with a T-max of 100.9 degrees Fahrenheit. * Elevated white blood cell count that is currently trending up. * Acute non-ST elevation myocardial infarction -- cannot exclude true ACS versus elevated troponins post-ACLS and chest compressions. * Presumed new left bundle branch block on ECG. * Congestive hepatopathy. * Hypertension. * Hyperlipidemia. * Ventilator-dependent respiratory failure. [facility] done 08/13/22: * Nonobstructive coronary artery disease. * Selective coronary angiography. * "Double barrel takeoff" of the left anterior descending artery and the left circumflex artery. * Left ventriculography. * Left ventricular ejection fraction of 55%. * Left ventricular end-diastolic pressure of 13. * Hemostasis established using a 6-[place] Mynx control. Extubated LVEF 55-60% on echo Continue cardiac meds Monitor BP/HR No further cardiac w/up is necessary at this time. Will sign off. URSZULA FERNANDEZ DO Aug 14, 2022 14:38
--- NOTE | 2022-08-14 15:31 | NUR ---
1500 BP Meds Pt took AM meds late R/T swallowing difficulty. Provider aware, BP 106/48 at this time
[2022-08-14] MEDS: ULTRAM PO PRN (17:30)
--- NOTE | 2022-08-14 18:20 | NUR ---
Glasses Pt asked for glasses earlier in shift, son was contacted to bring them. Son stated they were with the pt when she arrived to the ED on 08/12. ED, Security, EVS, and Smoke Jumper Supervisor contacted to notify missing belongings. No information received at this point.
--- NOTE | 2022-08-14 18:35 | NUR ---
BEDSIDE REPORT RECEIVED FROM MAXIMINO KU. ASSUMED PT CARE.
--- NOTE | 2022-08-14 18:45 | NUR ---
Hand OFF Bedside report given to oncoming shift. Reliquished care at this time
[2022-08-14] MEDS ORDERED: NS 250ML 250 ML ONE (20:03)
[2022-08-14] MEDS: LIPITOR PO SCH (20:09)
[2022-08-15] VITALS (82 sets, daily range): BP systolic 95–219; BP diastolic 45–103
--- NOTE | 2022-08-15 01:49 | NUR ---
DR BUSH ON TELE MONITOR TO ASSESS PT. NO NEW ORDERS.
--- NOTE | 2022-08-15 01:59 | PRM.PN ---
Assessment & Plan Provider Note: Tele Intensivisit Overnight Note 1: ARF, hypoxia 2: Cardiac Arrest x 1 PEA 3: ROSARIO - LHC with no occlusions, no STARR - Stop DAPT. Stop hep gtt - check procalc, wean off abx if neg - suspicious of respiratory induced arrest (bronchospasm, AECOPD) - Reagan for dvt proph JOÃO BUSH Jr. DO Aug 15, 2022 01:58
[2022-08-15 04:32] LABS: BASOPHIL % 0.3 % (0.0-0.2); EOSINOPHIL # 0.1 10^3/uL (0.0-0.2); EOSINOPHIL % 0.5 % (0.0-5.0); LYMPHOCYTES % 14.2 % (24.0-44.0); MEAN CORP HGB 28.9 pg (26-34); MONOCYTES # 1.2 10^3/uL (0.3-0.8); NEUTROPHILS % 74.8 % (41.0-85.0); PLATELET COUNT 147 10^3/uL (150-400); RED CELL DISTRIBUTION WIDTH 14.3 % (11.5-14.5)
[2022-08-15 05:09] LABS: CARBON DIOXIDE 26.3 mmol/L (20.0-32)
[2022-08-15] MEDS: ULTRAM PO PRN ×3 (05:10→20:33)
[2022-08-15] MEDS: APRESOLINE IV PRN (05:11)
--- NOTE | 2022-08-15 05:32 | NUR ---
LABS: NOTIFIED DR AN OF PT AM LABS AND OF URINE OUTPUT FOR LAST 12HRS OF 200ML. TELEPHONE ORDER GIVEN TO ADMIN 1GM MAG IV OT NOW. TELEPHONE ORDER RBAV.
[2022-08-15] MEDS ORDERED: MAGNESIUM-D5W 1 GM/100 ML SOLN 100 ML IV ONE ×2 (05:36→06:00)
--- NOTE | 2022-08-15 05:49 | NUR ---
Critical LAB Received call from LAB for Procal of 15.25. Notified nurse caring for patient MAXIMINO Lai
--- NOTE | 2022-08-15 06:46 | NUR ---
BEDSIDE REPORT TO ONCOMING SHIFT. PT CARE RELINQUISHED.
[2022-08-15] MEDS: VIBRAMYCIN 100 MG in NS 100ML 100 ML IV SCH ×2 (08:14→20:11)
[2022-08-15] MEDS: DILAUDID IV PRN (08:16)
[2022-08-15] MEDS: LASIX IV SCH (08:16)
[2022-08-15] MEDS: PROTONIX IV IV SCH (08:16)
[2022-08-15] MEDS: ASPIRIN EC PO SCH (08:17)
[2022-08-15] MEDS: APRESOLINE PO SCH ×3 (08:17→20:12)
[2022-08-15] MEDS: COZAAR PO SCH (08:17)
[2022-08-15] MEDS: COREG PO SCH ×2 (08:17→20:12)
[2022-08-15] MEDS: PERIDEX MM SCH ×2 (09:00→20:11)
[2022-08-15] MEDS ORDERED: KLOR-CON 10 PO STA (10:19)
[2022-08-15] MEDS ORDERED: KCL 20MEQ/100ML 100 ML IV STA (10:19)
--- NOTE | 2022-08-15 10:29 | PRM.PN ---
Subjective Subjective Date: Aug 15, 2022 Time: 09:00 Subjective Sitting up in bed.. Complaining of chest discomfort. Potassium is low 3.1 will be replaced. Magnesium is low 1.7 will be replaced. Appreciate kaitara taraka and custodian manager input and help. Case discussed with MEDICAL ADVISOR. Review of Systems Constitutional: Weakness; No: Fever, Chills, Sweats, Malaise, Other Eyes: No: Pain, Vision change, Conjunctivae inflammation, Eyelid inflammation, Other, Redness ENT: No: Ear pain, Ear discharge, Nose pain, Nose discharge, Nose congestion, Mouth pain, Mouth swelling, Throat pain, Throat swelling, Other Respiratory: No: Cough, Dry, Shortness of breath, SOB with excertion, Wheezing, Hemoptysis, Pleuritic Pain, Sputum, Wheezing, Other Cardiovascular: Chest Pain Gastrointestinal: No: Nausea, Vomiting, Abdominal Pain, Diarrhea, Constipation, Melena, Hematochezia, Other Musculoskeletal: No: other, neck pain, shoulder pain, arm pain, back pain, hand pain, leg pain, foot pain Neurological: Weakness Allergies: Coded Allergies: No Known Drug Allergies (Verified Allergy, Unknown, 08/13/22) Objective Vitals and I/O Vital Sign - Last 24 Hours 08/14/22 08/14/22 08/14/22 08/14/22 10:30 10:45 10:58 10:59 Temp 100.0 100.0 Pulse 78 64 72 Resp 22 B/P (MAP) 166/79 (108) 135/63 (87) 169/72 169/72 Pulse Ox 96 97 O2 Delivery Nasal Cannula* Nasal Cannula* O2 Flow Rate 3 2 FiO2 32 28 08/14/22 08/14/22 08/14/22 08/14/22 11:00 11:02 11:15 11:30 Temp 100.2 100.2 100.2 100.0 Pulse 98 80 71 68 Resp 20 13 12 13 B/P (MAP) 182/87 (118) 169/72 (104) 130/67 (88) Pulse Ox 98 97 96 96 O2 Delivery Nasal Cannula* Nasal Cannula* Nasal Cannula* Nasal Cannula* O2 Flow Rate 2 2 2 2 FiO2 28 28 28 28 08/14/22 08/14/22 08/14/22 08/14/22 11:45 12:00 12:15 12:30 Temp 100.0 99.9 100.0 100.0 Pulse 70 68 69 66 Resp 12 13 14 14 B/P (MAP) 124/64 (84) 127/55 (79) 152/63 (92) 152/65 (94) Pulse Ox 97 97 98 97 O2 Delivery Nasal Cannula* Nasal Cannula* Nasal Cannula* Nasal Cannula* O2 Flow Rate 2 2 2 2 FiO2 28 28 28 28 08/14/22 08/14/22 08/14/22 08/14/22 12:45 13:00 13:01 13:15 Temp 100.0 Pulse 67 77 Resp 15 B/P (MAP) 161/54 (89) 154/62 (92) 155/70 (98) Pulse Ox 97 95 94 O2 Delivery Nasal Cannula* Nasal Cannula* Nasal Cannula Nasal Cannula* O2 Flow Rate 2 2 2.00 2 FiO2 28 28 28 08/14/22 08/14/22 08/14/22 08/14/22 13:30 13:45 14:00 14:16 Pulse 68 65 65 66 Resp 17 14 13 15 B/P (MAP) 157/59 (91) 142/61 (88) 137/66 (89) 174/71 (105) Pulse Ox 96 96 97 97 O2 Delivery Nasal Cannula* Nasal Cannula* Nasal Cannula* Nasal Cannula* O2 Flow Rate 2 2 2 2 FiO2 28 28 28 28 08/14/22 08/14/22 08/14/22 08/14/22 14:31 14:45 15:00 15:16 Pulse 77 71 79 81 Resp 16 18 16 15 B/P (MAP) 158/93 (114) 194/91 (125) 149/68 (95) 154/53 (86) Pulse Ox 97 97 97 96 O2 Delivery Nasal Cannula* Nasal Cannula* Nasal Cannula* Nasal Cannula* O2 Flow Rate 2 2 2 2 FiO2 28 28 28 28 08/14/22 08/14/22 08/14/22 08/14/22 15:30 15:45 16:00 16:15 Temp 99.5 Pulse 83 81 69 Resp 16 16 20 B/P (MAP) 102/47 (65) 106/48 (67) 125/49 (74) Pulse Ox 96 96 96 O2 Delivery Nasal Cannula* Nasal Cannula* Nasal Cannula* Nasal Cannula O2 Flow Rate 2 2 2 2.00 FiO2 28 28 28 08/14/22 08/14/22 08/14/2208/14/23 16:15 16:30 16:45 17:00 Pulse 72 73 74 76 Resp 15 20 15 20 B/P (MAP) 111/52 (71) 142/69 (93) 149/66 (93) 137/70 (92) Pulse Ox 97 97 98 98 O2 Delivery Nasal Cannula* Nasal Cannula* Nasal Cannula* Nasal Cannula* O2 Flow Rate 2 2 2 2 FiO2 28 28 28 28 08/14/22 08/14/22 08/14/22 08/14/22 17:23 17:30 17:45 18:00 Pulse 73 93 79 76 Resp 19 17 20 18 B/P (MAP) 116/60 (78) 138/74 (95) 127/71 (89) 146/76 (99) Pulse Ox 97 96 96 97 O2 Delivery Nasal Cannula* Nasal Cannula* Nasal Cannula* Nasal Cannula* O2 Flow Rate 2 2 2 2 FiO2 28 28 28 28 08/14/22 08/14/22 08/14/22 08/14/22 18:30 18:45 19:00 19:09 Temp 99.9 Pulse 67 68 71 Resp 20 19 21 B/P (MAP) 127/64 (85) 139/69 (92) 116/62 (80) Pulse Ox 98 98 99 O2 Delivery Nasal Cannula* Nasal Cannula* Nasal Cannula* Nasal Cannula O2 Flow Rate 2 2 2 2.00 FiO2 28 28 28 08/14/22 08/14/22 08/14/22 08/14/22 19:15 19:31 19:45 20:00 Pulse 70 67 68 67 Resp 18 18 18 B/P (MAP) 109/64 (79) 148/61 (90) 123/63 (83) 127/70 (89) Pulse Ox 97 96 98 97 O2 Delivery Nasal Cannula* Nasal Cannula* Nasal Cannula* Nasal Cannula* O2 Flow Rate 2 2 2 2 FiO2 28 28 28 28 08/14/22 08/14/22 08/14/22 08/14/22 20:08 20:15 20:27 20:30 Pulse 66 71 65 66 Resp 18 18 20 B/P (MAP) 138/64 149/59 (89) 138/64 (88) Pulse Ox 98 98 98 O2 Delivery Nasal Cannula* Nasal Cannula* Nasal Cannula* O2 Flow Rate 2 2 2 FiO2 28 28 28 08/14/22 08/14/22 08/14/2223 20:45 21:00 21:15 21:30 Pulse 67 65 66 66 Resp 22 18 17 9 B/P (MAP) 133/65 (87) 120/63 (82) 115/58 (77) 102/58 (73) Pulse Ox 97 99 98 98 O2 Delivery Nasal Cannula* Nasal Cannula* Nasal Cannula* Nasal Cannula* O2 Flow Rate 2 2 2 2 FiO2 28 28 28 28 08/14/22 08/14/22 08/14/22 08/14/22 21:45 22:00 22:15 22:30 Pulse 71 65 66 62 Resp 18 19 18 17 B/P (MAP) 102/58 (73) 110/53 (72) 122/58 (79) 114/55 (74) Pulse Ox 98 98 97 98 O2 Delivery Nasal Cannula* Nasal Cannula* Nasal Cannula* Nasal Cannula* O2 Flow Rate 2 2 2 2 FiO2 28 28 28 28 08/14/22 08/14/22 08/14/22 08/14/22 22:45 23:00 23:04 23:15 Temp 100.1 Pulse 65 67 66 Resp 18 19 18 B/P (MAP) 112/54 (73) 106/46 (66) 87/45 (59) Pulse Ox 96 95 96 O2 Delivery Nasal Cannula* Nasal Cannula* Nasal Cannula Nasal Cannula* O2 Flow Rate 2 2 2.00 2 FiO2 28 28 28 08/14/22 08/14/22 08/15/22 08/15/22 23:30 23:45 00:00 00:15 Pulse 64 64 65 65 Resp 19 20 17 17 B/P (MAP) 103/46 (65) 103/42 (62) 95/53 (67) 102/46 (64) Pulse Ox 97 96 96 96 O2 Delivery Nasal Cannula* Nasal Cannula* Nasal Cannula* Nasal Cannula* O2 Flow Rate 2 2 2 2 FiO2 28 28 28 28 08/15/22 08/15/22 08/15/22 08/15/22 00:30 00:45 01:00 01:15 Pulse 65 65 65 66 Resp 19 19 19 18 B/P (MAP) 104/52 (69) 107/50 (69) 98/54 (69) 103/55 (71) Pulse Ox 96 97 98 97 O2 Delivery Nasal Cannula* Nasal Cannula* Nasal Cannula* Nasal Cannula* O2 Flow Rate 2 2 2 2 FiO2 28 28 28 28 08/15/22 08/15/22 08/15/22 08/15/22 01:30 01:45 02:00 02:15 Pulse 69 65 68 64 Resp 9 17 18 17 B/P (MAP) 112/51 (71) 128/58 (81) 128/59 (82) 114/58 (76) Pulse Ox 98 98 98 98 O2 Delivery Nasal Cannula* Nasal Cannula* Nasal Cannula* Nasal Cannula* O2 Flow Rate 2 2 2 2 FiO2 28 08/15/22 08/15/22 08/15/22 08/15/22 02:30 02:45 03:00 03:15 Pulse 65 70 64 60 Resp 20 23 19 12 B/P (MAP) 103/54 (70) 116/64 (81) 139/69 (92) 150/63 (92) Pulse Ox 97 95 97 96 O2 Delivery Nasal Cannula* Nasal Cannula* Nasal Cannula* Nasal Cannula* O2 Flow Rate 2 2 2 2 FiO2 08/15/22 08/15/22 08/15/22 08/15/22 03:30 03:45 04:00 04:15 Pulse 65 62 61 63 Resp 18 19 19 B/P (MAP) 154/55 (88) 140/58 (85) 154/64 (94) 153/67 (95) Pulse Ox 97 97 97 95 O2 Delivery Nasal Cannula* Nasal Cannula* Nasal Cannula* Nasal Cannula* O2 Flow Rate 2 2 2 2 FiO2 28 28 08/15/22 08/15/22 08/15/22 08/15/22 04:30 04:46 05:01 05:11 Temp 99.9 Pulse 60 64 66 Resp 12 10 B/P (MAP) 151/81 (104) 176/71 (106) 198/88 Pulse Ox 97 98 O2 Delivery Nasal Cannula* Nasal Cannula* Nasal Cannula O2 Flow Rate 2 2 2.00 FiO2 08/15/22 08/15/22 08/15/22 08/15/22 05:13 05:15 05:30 05:45 Pulse 67 73 66 69 Resp 22 21 17 20 B/P (MAP) 203/74 (117) 192/73 (112) 198/88 (124) 168/68 (101) Pulse Ox 97 94 100 96 O2 Delivery Nasal Cannula* Nasal Cannula* Nasal Cannula* Nasal Cannula* O2 Flow Rate 2 2 2 2 FiO2 28 28 28 28 08/15/22 08/15/22 08/15/22 08/15/22 06:00 06:15 06:30 06:45 Pulse 66 70 68 70 Resp 21 12 B/P (MAP) 166/66 (99) 164/69 (100) 160/69 (99) 160/70 (100) Pulse Ox 96 97 98 98 O2 Delivery Nasal Cannula* Nasal Cannula* Nasal Cannula* Nasal Cannula* O2 Flow Rate 2 2 2 2 FiO2 28 28 28 28 08/15/22 08/15/22 08/15/22 08/15/22 07:00 07:15 07:30 07:45 Pulse 69 66 63 63 Resp 17 17 14 B/P (MAP) 168/65 (99) 151/64 (93) Pulse Ox 99 99 98 99 O2 Delivery Nasal Cannula* Nasal Cannula* Nasal Cannula* Nasal Cannula* O2 Flow Rate 2 2 2 2 FiO2 28 28 28 28 08/15/22 08/15/22 08/15/22 08/15/22 08:00 08:15 08:16 08:17 Pulse 66 72 70 Resp 15 22 B/P (MAP) 160/70 160/70 Pulse Ox 98 97 O2 Delivery Nasal Cannula* Nasal Cannula* O2 Flow Rate 2 2 FiO2 28 28 08/15/22 08/15/22 08/15/22 08/15/22 08:17 08:30 08:30 08:45 Pulse 71 71 Resp 14 43 B/P (MAP) 160/70 Pulse Ox 98 98 O2 Delivery Nasal Cannula* Nasal Cannula Nasal Cannula* O2 Flow Rate 2 2.00 2 FiO2 28 28 08/15/22 08/15/22 09:00 09:05 Pulse 68 70 Resp 21 12 B/P (MAP) Pulse Ox 98 98 O2 Delivery Nasal Cannula* Nasal Cannula* O2 Flow Rate 2 2 FiO2 28 28 Intake and Output 08/15/22 07:00 Intake Total 1654.32 ml Output Total 1450 ml Balance 204.32 ml General: Alert, Oriented X3, mild distress HEENT: Atraumatic, PERRLA, EOMI Neck: Supple Lungs: Other (Few basilar crackles) Heart: Regular rate, Normal S1, Normal S2 Extremities: No clubbing, No cyanosis, No edema Neuro: Normal speech, Strength at 5/5 X4 ext All Results(Lab/Rad) Laboratory Tests Test 08/12/22:35 08/12/22 22:37 08/12/22 22:57 08/12/22 23:15 White Blood Count 14.1 10^3/uL (4.5-11.0) Red Blood Count 4.66 10^6/uL (4.00-5.20) Hemoglobin 13.3 g/dL (12.0-15.0) Hematocrit 43.4 % (36.0-46.0) Mean Corpuscular Volume 93.1 fL (78-100) Mean Corpuscular Hemoglobin 28.5 pg (26-34) Mean Corpuscular Hemoglobin Concent 30.6 g/dL (33-36.5) Red Cell Distribution Width 13.6 % (11.5-14.5) Platelet Count 220 10^3/uL (150-400) Mean Platelet Volume 11.0 fL (7.8-11.0) Neutrophils (%) (Auto) 43.4 % (41.0-85.0) Lymphocytes (%) (Auto) 50.1 % (24.0-44.0) Monocytes (%) (Auto) 4.1 % (5.0-12.0) Neutrophils # (Auto) 6.1 10^3/uL (1.8-7.7) Lymphocytes # (Auto) 7.07 10^3/uL1 (1.0-4.8) Monocytes # (Auto) 0.6 10^3/uL (0.3-0.8) Absolute Immature Granulocyte (auto 0.31 10^3 u/L (0-2) Absolute Eosinophils (auto) 0.3 10^3/uL (0.0-0.2) Immature Granulocytes % 2.20 % (0.00-0.50) Eosinophils % 1.8 % (0.0-5.0) Basophils % 0.6 % (0.0-0.2) Basophils # 0.1 10^3/uL (0.0-0.1) Prothrombin Time 11.2 SEC (9.1-11.5) INR International Normalized Ratio 1.1 Activated Partial Thromboplast Time 51.1 SEC (22.5-33.1) D-Dimer 21.17 mg/L (0.19-0.49) Sodium Level 145 mmol/L (132-145) Potassium Level 3.1 mmol/L (3.6-5.2) Chloride Level 105.0 mmol/L (96-109) Carbon Dioxide Level 14.5 mmol/L (20.0-32) Anion Gap 28.6 Blood Urea Nitrogen 16 mg/dL (7-18) Creatinine 1.41 mg/dL (0.59-1.40) Estimated GFR () 46.0 (>/=60) Est GFR (CKD-EPI)(Non-Afr [place]) 38.0 (>/=60) BUN/Creatinine Ratio 11.0 Glucose Level 355 mg/dL (70-110) Calcium Level 8.3 mg/dL (8.4-10.5) Magnesium Level 2.6 mg/dL (1.8-2.4) Total Bilirubin 0.2 mg/dL (0.2-1.0) Aspartate Amino Transf (AST/SGOT) 152 U/L (0-35) Alanine Aminotransferase (ALT/SGPT) 104 U/L (12-78) Alkaline Phosphatase 152 U/L (50-136) Total Creatine Kinase 184 U/L (26-192) Creatine Kinase MB 4.9 ng/mL (0.5-3.6) Troponin I High Sensitivity 316 ng/L (0-50) Pro-B-Type Natriuretic Peptide 9118 pg/mL (0-125) Total Protein 5.8 g/dL (6.4-8.2) Albumin 2.5 g/dL (3.4-5.0) Globulin 3.3 Albumin/Globulin Ratio 0.757 Procalcitonin 0.05 ng/mL (0.05-0.5) Bedside Glucose 288 (70 - 110) Segmented Neutrophils 49 % (31-76) Lymphocytes 45 % (25-36) Monocytes 3 % (3-9) Absolute Eosinophils (Manual) 3 % (1-4) Platelet Estimate ADEQUATE Platelet Morphology NORMAL Urine Opiates Screen NEGATIVE (c/o300ng/mL) Urine Methadone Screen NEGATIVE (c/o300ng/mL) Urine Barbiturates Screen NEGATIVE (c/o200ng/mL) Urine Phencyclidine Screen NEGATIVE (c/o 25ng/mL) Ur Amphetamine/Methamphetamine NEGATIVE (ap2239as/mL) Urine MDMA Screen (Ecstasy) NEGATIVE (c/o300ng/mL) Urine Benzodiazepines Screen NEGATIVE (c/o200ng/mL) Urine Cocaine Metabolite Screen NEGATIVE (c/o300ng/mL) Ur Tetrahydrocannabinol (THC) Scrn PRESUMPTIVE POSITIVE (c/o Test 08/12/22 23:30 08/12/22 23:35 08/13/22 01:43 08/13/22 03:50 Blood Gas Sample Site RB Arterial Blood Oxygen Saturation 93.6 % (94.0-97.00) Blood Gas Temperature 37 Triglycerides Level 201 mg/dL (20-200) Lactic Acid Level 14.5 mmol/L (0.5-1.9) Lactic Acid Followup at 2 Hours 1.2 mmol/L (0.5-1.9) Total Creatine Kinase 250 U/L (26-192) Creatine Kinase MB 10.3 ng/mL (0.5-3.6) Troponin I High Sensitivity 1948 ng/L (0-50) Test 08/13/22 04:30 08/13/22 05:08 08/13/22 10:09 08/13/22 11:10 Blood Gas Sample Site RT BRACIAL ARTERY RT BRACIAL ARTERY Arterial Blood Oxygen Saturation 96.2 % (94.0-97.00) 97.3 % (94.0-97.00) Blood Gas Temperature 37 37.0 Activated Partial Thromboplast Time 98.9 SEC (22.5-33.1) 36.1 SEC (22.5-33.1) Blood Gas pH 7.431 (7.350-7.450) Blood Gas PCO2 32.4 mmHg (35.0-45.0) Blood Gas PO2 93.5 mmHg (80.0-100.0) Blood Gas HCO3 21.1 mmol/L (22.0-26.0) Blood Gas Base Excess -2.3 mmol/L (-2.0-2.0) Duglas Test N/A Deoxyhemoglobin 2.6 % (0.0-5.0) Carboxyhemoglobin 2.3 % (0.0-3.9) Methemoglobin 0.1 % (0.00-5.0) Total Hemoglobin 14.7 % (12.0-17.8) Total Oxygen Concentration 19.7 % (13.5-17.5) Oxygen Delivery Method (LAB) VENT Blood Gas Vent Mode AC Blood Gas Vent Rate 16 FiO2 40 % (20-101) Blood Gas Tidal Volume 400 ML Blood Gas PEEP 8.0 CMH2O Total Carbon Dioxide 22.1 mmol/L (23-27) White Blood Count 17.0 10^3/uL (4.5-11.0) Red Blood Count 4.83 10^6/uL (4.00-5.20) Hemoglobin 13.8 g/dL (12.0-15.0) Hematocrit 42.1 % (36.0-46.0) Mean Corpuscular Volume 87.2 fL (78-100) Mean Corpuscular Hemoglobin 28.6 pg (26-34) Mean Corpuscular Hemoglobin Concent 32.8 g/dL (33-36.5) Red Cell Distribution Width 13.7 % (11.5-14.5) Platelet Count 187 10^3/uL (150-400) Mean Platelet Volume 11.2 fL (7.8-11.0) Neutrophils (%) (Auto) 86.9 % (41.0-85.0) Lymphocytes (%) (Auto) 7.2 % (24.0-44.0) Monocytes (%) (Auto) 5.4 % (5.0-12.0) Neutrophils # (Auto) 14.8 10^3/uL (1.8-7.7) Lymphocytes # (Auto) 1.23 10^3/uL1 (1.0-4.8) Monocytes # (Auto) 0.9 10^3/uL (0.3-0.8) Absolute Immature Granulocyte (auto 0.07 10^3 u/L (0-2) Absolute Eosinophils (auto) 0.0 10^3/uL (0.0-0.2) Immature Granulocytes % 0.40 % (0.00-0.50) Eosinophils % 0.0 % (0.0-5.0) Basophils % 0.1 % (0.0-0.2) Basophils # 0.0 10^3/uL (0.0-0.1) Sodium Level 142 mmol/L (132-145) Potassium Level 3.4 mmol/L (3.6-5.2) Chloride Level 105.0 mmol/L (96-109) Carbon Dioxide Level 23.3 mmol/L (20.0-32) Anion Gap 17.1 Blood Urea Nitrogen 30 mg/dL (7-18) Creatinine 1.56 mg/dL (0.59-1.40) Estimated GFR () 41.0 (>/=60) Est GFR (CKD-EPI)(Non-Afr [place]) 33.9 (>/=60) BUN/Creatinine Ratio 19.0 Glucose Level 154 mg/dL (70-110) Calcium Level 7.5 mg/dL (8.4-10.5) Total Bilirubin 0.3 mg/dL (0.2-1.0) Aspartate Amino Transf (AST/SGOT) 189 U/L (0-35) Alanine Aminotransferase (ALT/SGPT) 135 U/L (12-78) Alkaline Phosphatase 162 U/L (50-136) Total Creatine Kinase 282 U/L (26-192) Creatine Kinase MB 7.9 ng/mL (0.5-3.6) Total Protein 6.2 g/dL (6.4-8.2) Albumin 2.9 g/dL (3.4-5.0) Globulin 3.3 Albumin/Globulin Ratio 0.878 Test 08/13/22 11:54 08/13/22 15:13 08/13/22 19:20 08/14/22 00:36 Nasal Adenovirus (PCR) NotDetected (NotDetected) Nasal Coronavirus Type 229E (PCR) NotDetected (NotDetected) Nasal Coronavirus Type HKU1 (PCR) NotDetected (NotDetected) Nasal Coronavirus Type NL63 (PCR) NotDetected (NotDetected) Nasal Coronavirus Type OC43 (PCR) NotDetected (NotDetected) Nasal Enterovirus/Rhinovirus (PCR) NotDetected (NotDetected) Nasal Influenza Type A (H1) (PCR) NotDetected (NotDetected) Nasal Influenza Type A (H3) (PCR) NotDetected (NotDetected) Nasal Swab Influenza Virus B (PCR) NotDetected (NotDetected) Nasal Parainfluenza Type 1 (PCR) NotDetected (NotDetected) Nasal Parainfluenza Type 2 (PCR) NotDetected (NotDetected) Nasal Parainfluenza Type 3 (PCR) NotDetected (NotDetected) Nasal Parainfluenza Type 4 (PCR) NotDetected (NotDetected) Nasal Resp Syncytial Virus (PCR) NotDetected (NotDetected) Nasal Bordetella pertussis DNA (PCR NotDetected (NotDetected) Nasal Chlamydophila pneumoniae (PCR NotDetected (NotDetected) Nasal Human Metapneumovirus (PCR) NotDetected (NotDetected) Nasal Mycoplasma pneumoniae (PCR) NotDetected (NotDetected) Nasal SARS-CoV-2 (PCR) NotDetected (NotDetected) Influenza A (PCR) NotDetected (NotDetected) Influenza Type A (H1N1/09) (PCR) NotDetected (NotDetected) Activated Partial Thromboplast Time 66.8 SEC (22.5-33.1) 67.5 SEC (22.5-33.1) Troponin I High Sensitivity 3793 ng/L (0-50) Bedside Glucose 94 (70 - 110) Test 08/14/22 04:20 08/14/22 06:36 08/14/22 08:00 White Blood Count 12.1 10^3/uL (4.5-11.0) Red Blood Count 4.19 10^6/uL (4.00-5.20) Hemoglobin 12.1 g/dL (12.0-15.0) Hematocrit 36.5 % (36.0-46.0) Mean Corpuscular Volume 87.1 fL (78-100) Mean Corpuscular Hemoglobin 28.9 pg (26-34) Mean Corpuscular Hemoglobin Concent 33.2 g/dL (33-36.5) Red Cell Distribution Width 14.3 % (11.5-14.5) Platelet Count 160 10^3/uL (150-400) Mean Platelet Volume 11.6 fL (7.8-11.0) Neutrophils (%) (Auto) 81.3 % (41.0-85.0) Lymphocytes (%) (Auto) 10.7 % (24.0-44.0) Monocytes (%) (Auto) 7.8 % (5.0-12.0) Neutrophils # (Auto) 9.9 10^3/uL (1.8-7.7) Lymphocytes # (Auto) 1.29 10^3/uL1 (1.0-4.8) Monocytes # (Auto) 1.0 10^3/uL (0.3-0.8) Absolute Immature Granulocyte (auto 0.03 10^3 u/L (0-2) Absolute Eosinophils (auto) 0.0 10^3/uL (0.0-0.2) Immature Granulocytes % 0.20 % (0.00-0.50) Eosinophils % 0.0 % (0.0-5.0) Basophils % 0.2 % (0.0-0.2) Basophils # 0.0 10^3/uL (0.0-0.1) Sodium Level 144 mmol/L (132-145) Potassium Level 3.0 mmol/L (3.6-5.2) Chloride Level 107.0 mmol/L (96-109) Carbon Dioxide Level 27.5 mmol/L (20.0-32) Anion Gap 12.5 Blood Urea Nitrogen 29 mg/dL (7-18) Creatinine 1.37 mg/dL (0.59-1.40) Estimated GFR () 47.6 (>/=60) Est GFR (CKD-EPI)(Non-Afr [place]) 39.3 (>/=60) BUN/Creatinine Ratio 21.0 Glucose Level 110 mg/dL (70-110) Calcium Level 7.7 mg/dL (8.4-10.5) Total Bilirubin 0.4 mg/dL (0.2-1.0) Aspartate Amino Transf (AST/SGOT) 56 U/L (0-35) Alanine Aminotransferase (ALT/SGPT) 88 U/L (12-78) Alkaline Phosphatase 123 U/L (50-136) Total Creatine Kinase 296 U/L (26-192) Total Protein 5.8 g/dL (6.4-8.2) Albumin 2.6 g/dL (3.4-5.0) Globulin 3.2 Albumin/Globulin Ratio 0.812 Bedside Glucose 114 (70 - 110) Blood Gas Sample Site RT BRACIAL ARTERY Blood Gas pH 7.418 (7.350-7.450) Blood Gas PCO2 36.4 mmHg (35.0-45.0) Blood Gas PO2 66.7 mmHg (80.0-100.0) Blood Gas HCO3 23.0 mmol/L (22.0-26.0) Blood Gas Base Excess -1.1 mmol/L (-2.0-2.0) D[place]las Test N/A Arterial Blood Oxygen Saturation 93.1 % (94.0-97.00) Deoxyhemoglobin 6.9 % (0.0-5.0) Carboxyhemoglobin 0.3 % (0.0-3.9) Methemoglobin 0.3 % (0.00-5.0) Total Hemoglobin 12.1 % (12.0-17.8) Total Oxygen Concentration 15.8 % (13.5-17.5) Blood Gas Temperature 37.0 Oxygen Delivery Method (LAB) VENT Blood Gas Vent Mode AC Blood Gas Vent Rate 16 FiO2 40 % (20-101) Blood Gas Tidal Volume 400 ML Blood Gas PEEP 5.0 CMH2O Total Carbon Dioxide 24.1 mmol/L (23-27) Assessment/Plan Assessment/Plan Assessment/Plan * Status post cardiopulmonary arrest. * Acute decompensated heart failure secondary to diastolic dysfunction * Extensive lower lung consolidation with ground glass opacities in the upper lungs consistent with extensive multifocal pneumonia. * Acute febrile episode with a T-max of 100.9 degrees Fahrenheit. * Elevated white blood cell count that is currently trending up. * Acute non-ST elevation myocardial infarction -- cannot exclude true ACS versus elevated troponins post-ACLS and chest compressions. * Presumed new left bundle branch block on ECG. * Congestive hepatopathy. * Hypertension. * Hyperlipidemia. * Ventilator-dependent respiratory failure. LHC done 08/13/22: * Nonobstructive coronary artery disease. * Selective coronary angiography. * "Double barrel takeoff" of the left anterior descending artery and the left circumflex artery. * Left ventriculography. * Left ventricular ejection fraction of 55%. * Left ventricular end-diastolic pressure of 13. * Hemostasis established using a 6-[place] Mynx control. Extubated LVEF 55-60% on echo Continue cardiac meds Monitor BP/HR No further cardiac w/up is necessary at this time. Will sign off. 08/15/2022 Cardiac Arrest - 6 min of Coding with 1 epi and 1 bicarb then ROSC. LHC with no acute findings yesterday. ECHO done this morning. Has been able to hold pressures and HR without vasopressors. Amiodarone discontinued 08/13. Extubated 3/20 Leukocytosis - ? Pneumonia pneumonia could be interstitial edema? doxy and rocephin at this time. ROSARIO - further improving, good urine output. monitor. Hypokalemia - replacing via IV today. monitor. Magnesium Magnesium 1.7. This will be replaced Necrotic tissue of left forearm - monitor closely. ?HTN - hydralazine and coreg, monitor BP closely THC use - counselling on cessation during course of stay. Hypomagnesemia. Will be replaced GI and DVT prophylaxis zofran prn for nausea acetaminophen and morphine prn per pain scale oral care after extubation Time spent examining the patient, reviewing history, reviewing labs, images, medications, discussing the case with MEDICAL ADVISOR, patient, documentation and placing orders 45 minutes Problems: (1) Cardiopulmonary arrest Status: Acute ICD Code: I46.9 - Cardiac arrest, cause unspecified SNOMED: 215278517 (2) NSTEMI (non-ST elevated myocardial infarction) Status: Acute ICD Code: I21.4 - Non-ST elevation (NSTEMI) myocardial infarction SNOMED: 58222679 (3) Acute hypoxemic respiratory failure Status: Acute ICD Code: J96.01 - Acute respiratory failure with hypoxia SNOMED: 142493583 (4) Pneumonia Status: Acute ICD Code: J18.9 - Pneumonia, unspecified organism SNOMED: 378637616, [id number] (5) Acute respiratory failure Status: Acute ICD Code: J96.00 - Acute respiratory failure, unspecified whether with hypoxia or hypercapnia SNOMED: [id number] Problem Qualifiers (1) Pneumonia: Pneumonia type: due to unspecified organism Laterality: unspecified lateralit y Lung location: unspecified part of lung Qualified Codes: J18.9 - Pneumonia, unspecified organism (2) Acute respiratory failure: Respiratory failure complication: hypoxia and hypercapnia Qualified Codes: J96.01 - Acute respiratory failure with hypoxia; J96.02 - Acute respiratory failure with hypercapnia ROLAND ISAACS MD Aug 15, 2022 10:29
[2022-08-15] MEDS ORDERED: MAGNESIUM SULFATE 50 ML IV ONE (10:30)
[2022-08-15] MEDS ORDERED: NS 250ML 250 ML ONE (10:49)
[2022-08-15] MEDS: ROCEPHIN 1,000 MG in NS 100ML 100 ML IV SCH (11:27)
[2022-08-15] MEDS: LOVENOX SQ SCH (11:27)
--- NOTE | 2022-08-15 11:36 | PRM.PN ---
Assessment & Plan Provider Note: Impression: S/P PEA arrest ? primary respiratory etiology (due to CHF with pulmonary edema vs PNA). Pt does give a 30 pack year smoking history but no known history of COPD. ROSARIO Rec: Cont O2 supplementation Cont current abx Cont enoxaparin for DVT proph, full a/c and DAPT stopped given non-obstructive findings on LHC Cont diuresis Cont beta blockade, afterload reduction Replete K aggressively, recheck Mg level (ordered) OOB as tolerated Cards f/u Please call at any time if we can be of assistance Bedside rounds completed with bedside provider-no other needs at this time Telecritical care providers remain available for assistance at any time Remote audiovisual assessment of patient completed via HIPAA-compliant technology Cumulative non-procedural critical care time spent in directed patient care 60 minutes LLOYD SEPULVEDA MD Aug 15, 2022 11:36
--- NOTE | 2022-08-15 12:39 | NUR ---
DISCHARGE PLANNING: CM/SS VISITED WITH PT AND DAUGHTER REGARDING DISCHARGE PLAN AND NEED. PT LIVES HOME ALONE AND WAS PREVIOUSLY INDEPENDENT AND DID NOT USE ANY DME TO ASSIST WITH AMBULATION. PT WAS NOT ON OXYGEN AND DID NOT HAVE A PCP IN PLACE. CM/SS PROVIDED PT AND DAUGHTER WITH COMPLETE COMMUNITY RESOURCE LIST WITH LOCAL AGENCIES THAT COULD ASSIST PT WITH HOME MEDICATION AND LET PT KNOW SHE WOULD REACH OUT TO THE BUSINESS OFFICE TO COME AND VISIT AND SCREEN PT REGARDING INSURANCE/IAN OPTIONS. CM/SS CALLED AND VISITED ELIAS WHOM STATED "I ATTEMPTED TO YESTERDAY BUT SHE WAS STILL DROWSY SO I WILL GO BACK UP TODAY AND RE-ATTEMPT". CM/SS LET PT AND DAUGHTER KNOW SHE WOULD BE UP LATER TO VISIT WITH PT AND DAUGHTER. CM/SS LET PT KNOW WE WOULD WORK ON LIFE VEST AND HOME O2 IF RECOMMENDED UPON DISCHARGE. NO FURTHER CM/SS NEEDS NOTED OR IDENTIFIED AT THIS TIME. CM/SS TO CONTINUE TO FOLLOW AND MONITOR DISCHARGE PLAN AND NEED.
--- NOTE | 2022-08-15 18:35 | NUR ---
BEDSIDE REPORT RECEIVED FROM MAXIMINO THOMAS. ASSUMED PT CARE.
--- NOTE | 2022-08-15 19:45 | NUR ---
PT STATUS: PT NOTED TO BE WHEEZING AND C/O SHORTNESS OF BREATH. PT REPORTS SHE HAS NOT HAD A BREATHING TREATMENT. RT - LON NOTIFIED FOR PRN BREATHING TREATMENT.
[2022-08-15] MEDS: DUO 0.5-3(2.5) MG/3 ML IH PRN (20:03)
[2022-08-15] MEDS: LIPITOR PO SCH (20:12)
[2022-08-16] VITALS (59 sets, daily range): BP systolic 101–224; BP diastolic 50–119
--- NOTE | 2022-08-16 01:44 | PRM.PN ---
Subjective Events since last encounter remain sextubated no new issues per RN Symptoms, Observation: STABLE NO DYSPNEA But low grade fever + Objective Exam,Results,Procedures sleepy no jvd heart rhythm normal resp quiet legs no e chelsi Assessment & Plan Problems/DX: (1) Acute respiratory failure (2) Pneumonia (3) Cardiopulmonary arrest Provider Note: Katrina SSTABLE ON ANIBIOTICS At admission had very high procal consistent with her septic picture- i feel RICARDO WHITEHEAD MD Aug 16, 2022 01:44
[2022-08-16] MEDS: DUO 0.5-3(2.5) MG/3 ML IH PRN ×4 (02:17→20:10)
[2022-08-16] MEDS: APRESOLINE IV PRN (02:31)
[2022-08-16] MEDS: DILAUDID IV PRN ×2 (04:35→10:47)
[2022-08-16 05:23] LABS: BASOPHIL % 0.3 % (0.0-0.2); EOSINOPHIL # 0.1 10^3/uL (0.0-0.2); EOSINOPHIL % 0.4 % (0.0-5.0); LYMPHOCYTES % 10.4 % (24.0-44.0); MEAN CORP HGB 28.8 pg (26-34); MONOCYTES # 1.2 10^3/uL (0.3-0.8); MONOCYTES % 8.4 % (5.0-12.0); NEUTROPHIL # 11.6 10^3/uL (1.8-7.7); NEUTROPHILS % 80.5 % (41.0-85.0); PLATELET COUNT 170 10^3/uL (150-400); RED CELL DISTRIBUTION WIDTH 14.3 % (11.5-14.5)
--- NOTE | 2022-08-16 06:42 | NUR ---
BEDSIDE REPORT TO ONCOMING SHIFT. PT CARE RELINQUISHED.
[2022-08-16] MEDS: PERIDEX MM SCH ×2 (08:00→20:16)
[2022-08-16] MEDS: PROTONIX IV IV SCH (08:10)
[2022-08-16] MEDS: VIBRAMYCIN 100 MG in NS 100ML 100 ML IV SCH ×2 (08:10→20:24)
[2022-08-16] MEDS: ASPIRIN EC PO SCH (08:11)
[2022-08-16] MEDS: COREG PO SCH ×2 (08:11→20:15)
[2022-08-16] MEDS: LASIX IV SCH (08:11)
[2022-08-16] MEDS: COZAAR PO SCH (08:12)
[2022-08-16] MEDS: APRESOLINE PO SCH ×3 (08:12→20:15)
[2022-08-16] MEDS: ULTRAM PO PRN ×3 (08:12→19:25)
[2022-08-16 08:41] LABS: CARBON DIOXIDE 23.5 mmol/L (20.0-32)
--- NOTE | 2022-08-16 09:08 | PRM.PN ---
Assessment & Plan Provider Note: Impression: S/P PEA arrest ? primary respiratory etiology (due to CHF with pulmonary edema vs PNA). Pt does give a 30 pack year smoking history but no known history of COPD. ROSARIO Rec: Cont O2 supplementation Cont current abx Cont enoxaparin for DVT proph Cont diuresis OOB as tolerated Cards f/u Please call at any time if we can be of assistance Bedside rounds completed with bedside provider-no other needs at this time Telecritical care providers remain available for assistance at any time Remote audiovisual assessment of patient completed via HIPAA-compliant technolog y Cumulative non-procedural critical care time spent in directed patient care 30 minutes LLOYD SEPULVEDA MD Aug 16, 2022 09:08
--- NOTE | 2022-08-16 10:17 | PRM.PN ---
Subjective Subjective Date: Aug 16, 2022 Time: 09:00 Subjective Sitting up in bed. Still complaining of chest discomfort. Feeling weak. Labs reviewed. Current medications reviewed. Otherwise no new complaints.We will consult physical therapy, try to get the patient out of bed.Continue current medications. Appreciate telemetry inventory control supervisor input and help. Appreciate loan funder input and help. Case discussed with CLAIM PROCESSOR. Review of Systems Constitutional: Weakness; No: Fever, Chills, Sweats, Malaise, Other Eyes: No: Pain, Vision change, Conjunctivae inflammation, Eyelid inflammation, Other, Redness ENT: No: Ear pain, Ear discharge, Nose pain, Nose discharge, Nose congestion, Mouth pain, Mouth swelling, Throat pain, Throat swelling, Other Respiratory: No: Cough, Dry, Shortness of breath, SOB with excertion, Wheezing, Hemoptysis, Pleuritic Pain, Sputum, Wheezing, Other Cardiovascular: Chest Pain Gastrointestinal: No: Nausea, Vomiting, Abdominal Pain, Diarrhea, Constipation, Melena, Hematochezia, Other Musculoskeletal: No: other, neck pain, shoulder pain, arm pain, back pain, hand pain, leg pain, foot pain Neurological: Weakness Allergies: Coded Allergies: No Known Drug Allergies (Verified Allergy, Unknown, 08/13/22) Objective Vitals and I/O Vital Sign - Last 24 Hours 08/15/22 08/15/22 08/15/22 08/15/22 10:15 10:30 10:46 11:00 Pulse 63 62 61 61 Resp 10 15 20 B/P (MAP) 125/61 (82) 115/51 (72) 111/63 (79) 131/60 (83) Pulse Ox 98 98 98 97 O2 Delivery Nasal Cannula* Nasal Cannula* Nasal Cannula* Nasal Cannula* O2 Flow Rate 2 2 2 2 FiO2 08/15/22 08/15/22 08/15/22 08/15/22 11:15 11:30 11:30 11:45 Pulse 57 61 61 Resp 16 13 13 B/P (MAP) 117/60 (79) 104/45 (64) 105/51 (69) Pulse Ox 98 98 99 O2 Delivery Nasal Cannula* Nasal Cannula Nasal Cannula* Nasal Cannula* O2 Flow Rate 2 2.00 2 2 FiO2 08/15/22 08/15/22 08/15/22 08/15/22 12:00 12:15 12:30 12:45 Pulse 66 65 60 60 Resp 15 17 15 16 B/P (MAP) 129/45 (73) 126/62 (83) 113/70 (84) 131/63 (85) Pulse Ox 97 99 99 99 O2 Delivery Nasal Cannula* Nasal Cannula* Nasal Cannula* Nasal Cannula* O2 Flow Rate 2 2 2 2 FiO2 28 28 28 28 08/15/22 08/15/22 08/15/22 08/15/22 13:00 13:15 13:30 13:45 Pulse 60 63 63 61 Resp 19 13 17 18 B/P (MAP) 128/59 (82) 123/62 (82) 122/65 (84) 131/68 (89) Pulse Ox 99 99 100 99 O2 Delivery Nasal Cannula* Nasal Cannula* Nasal Cannula* Nasal Cannula* O2 Flow Rate 2 2 2 2 FiO2 28 28 28 28 08/15/22 08/15/22 08/15/22 08/15/22 14:00 14:15 14:30 14:45 Temp 97.6 Pulse 59 62 64 60 Resp 10 17 17 B/P (MAP) 140/70 (93) 164/80 (108) 131/79 (96) 138/50 (79) Pulse Ox 100 99 99 98 O2 Delivery Nasal Cannula* Nasal Cannula* Nasal Cannula* Nasal Cannula* O2 Flow Rate 2 2 2 2 FiO2 28 28 28 28 08/15/22 08/15/22 08/15/22 08/15/22 15:00 15:15 15:30 15:45 Pulse 61 60 58 62 Resp 19 20 19 15 B/P (MAP) 125/58 (80) 127/61 (83) 128/59 (82) 140/62 (88) Pulse Ox 98 98 98 98 O2 Delivery Nasal Cannula* Nasal Cannula* Nasal Cannula* Nasal Cannula* O2 Flow Rate 2 2 2 2 FiO2 28 28 28 28 08/15/22 08/15/22 08/15/22 08/15/22 15:58 16:00 16:00 16:15 Pulse 61 60 60 Resp 18 16 B/P (MAP) 105/51 142/68 (92) 150/65 (93) Pulse Ox 97 98 O2 Delivery Nasal Cannula* Nasal Cannula Nasal Cannula* O2 Flow Rate 2 2.00 2 FiO2 28 28 08/15/22 08/15/22 08/15/22 08/15/22 16:30 16:47 18:30 18:45 Pulse 62 63 61 63 Resp 9 18 21 6 B/P (MAP) 170/76 (107) 170/73 (105) 139/72 (94) 168/70 (102) Pulse Ox 97 97 98 98 O2 Delivery Nasal Cannula* Nasal Cannula* Nasal Cannula* Nasal Cannula* O2 Flow Rate 2 2 2 2 FiO2 28 28 28 28 08/15/22 08/15/22 08/15/22 08/15/22 19:00 19:15 19:30 19:43 Temp 99.3 Pulse 64 66 68 B/P (MAP) 170/75 (106) 163/78 (106) 160/80 (106) Pulse Ox 99 99 99 O2 Delivery Nasal Cannula* Nasal Cannula* Nasal Cannula* Nasal Cannula O2 Flow Rate 2 2 2 2.00 FiO2 28 28 28 08/15/22 08/15/22 08/15/22 08/15/22 19:45 20:00 20:03 20:04 Pulse 72 73 77 77 Resp 8 12 20 20 B/P (MAP) 167/79 (108) 193/103 (133) Pulse Ox 98 97 97 O2 Delivery Nasal Cannula* Nasal Cannula* Nasal Cannula* Nasal Cannula* O2 Flow Rate 2 2 2 2 FiO2 28 28 28 28 08/15/22 08/15/22 08/15/22 08/15/22 20:12 20:13 20:15 20:30 Pulse 74 74 76 76 Resp 20 20 25 B/P (MAP) 217/88 219/89 (132) 217/88 (131) Pulse Ox 96 96 96 O2 Delivery Nasal Cannula* Nasal Cannula* Nasal Cannula* O2 Flow Rate 2 2 2 FiO2 28 28 28 08/15/22 08/15/22 08/15/22 08/15/22 20:46 21:00 21:15 21:30 Pulse 79 73 69 67 Resp 27 26 17 B/P (MAP) 202/102 (135) 209/87 (127) 181/71 (107) 157/68 (97) Pulse Ox 95 95 96 96 O2 Delivery Nasal Cannula* Nasal Cannula* Nasal Cannula* Nasal Cannula* O2 Flow Rate 2 2 2 2 FiO2 28 28 28 28 08/15/22 08/15/22 08/15/22 08/15/22 21:45 22:00 22:15 22:30 Pulse 64 62 61 60 Resp 11 18 15 B/P (MAP) 131/57 (81) 121/58 (79) 108/47 (67) 113/52 (72) Pulse Ox 97 97 97 97 O2 Delivery Nasal Cannula* Nasal Cannula* Nasal Cannula* Nasal Cannula* O2 Flow Rate 2 2 2 2 FiO2 28 28 28 28 08/15/22 08/15/22 08/15/22 08/15/22 22:45 23:00 23:15 23:30 Temp 99.8 Pulse 61 60 59 60 Resp 21 B/P (MAP) 110/55 (73) 110/55 (73) 115/56 (75) 126/58 (80) Pulse Ox 98 98 97 97 O2 Delivery Nasal Cannula* Nasal Cannula* Nasal Cannula* Nasal Cannula* O2 Flow Rate 2 2 2 2 FiO2 28 28 28 08/15/22 08/15/22 08/16/22 08/16/22 23:45 23:46 00:00 00:15 Pulse 59 59 61 Resp B/P (MAP) 135/58 (83) 142/61 (88) 144/64 (90) Pulse Ox 98 98 97 O2 Delivery Nasal Cannula* Nasal Cannula Nasal Cannula* Nasal Cannula* O2 Flow Rate 2 2.00 2 2 FiO2 28 28 08/16/22 08/16/22 08/16/22 08/16/22 00:30 00:46 01:00 01:15 Pulse 61 66 62 60 Resp 24 B/P (MAP) 125/66 (85) 133/71 (91) 138/61 (86) 135/64 (87) Pulse Ox 97 96 96 96 O2 Delivery Nasal Cannula* Nasal Cannula* Nasal Cannula* Nasal Cannula* O2 Flow Rate 2 2 2 2 FiO2 28 28 28 28 08/16/22 08/16/22 08/16/22 08/16/22 01:30 01:45 02:00 02:15 Pulse 61 64 64 65 Resp B/P (MAP) 144/71 (95) 171/76 (107) 161/79 (106) 182/70 (107) Pulse Ox 97 96 96 96 O2 Delivery Nasal Cannula* Nasal Cannula* Nasal Cannula* Nasal Cannula* O2 Flow Rate 2 2 2 2 FiO2 28 28 28 28 08/16/22 08/16/22 08/16/22 08/16/22 02:18 02:18 02:21 02:30 Pulse 68 68 65 Resp 18 20 20 14 B/P (MAP) 164/74 (104) Pulse Ox 97 97 98 96 O2 Delivery Nasal Cannula* Nasal Cannula* Nasal Cannula* O2 Flow Rate 2 2 2 FiO2 28 28 28 08/16/22 08/16/22 08/16/22 08/16/22 02:31 02:45 03:00 03:15 Pulse 65 68 67 65 Resp 25 12 15 B/P (MAP) 168/76 168/76 (106) 195/79 (117) 153/65 (94) Pulse Ox 98 95 96 O2 Delivery Nasal Cannula* Nasal Cannula* Nasal Cannula* O2 Flow Rate 2 2 2 FiO2 28 28 28 08/16/22 08/16/22 08/16/22 08/16/22 03:30 03:45 04:00 04:15 Temp 99.0 Pulse 65 64 65 67 Resp 25 16 23 B/P (MAP) 144/63 (90) 154/68 (96) 166/70 (102) 169/69 (102) Pulse Ox 96 96 96 96 O2 Delivery Nasal Cannula* Nasal Cannula* Nasal Cannula* Nasal Cannula* O2 Flow Rate 2 2 2 2 FiO2 28 28 28 28 08/16/22 08/16/22 08/16/22 08/16/22 04:30 04:30 04:45 05:00 Pulse 66 69 70 Resp 23 28 25 B/P (MAP) 176/72 (106) 174/80 (111) 182/81 (114) Pulse Ox 95 95 94 O2 Delivery Nasal Cannula* Nasal Cannula Nasal Cannula* Nasal Cannula* O2 Flow Rate 2 2.00 2 2 FiO2 28 28 28 08/16/22 08/16/22 08/16/22 08/16/22 05:45 06:00 06:15 06:30 Pulse 66 76 66 77 Resp 24 24 17 16 B/P (MAP) 155/72 (99) 173/75 (107) 168/72 (104) 156/68 (97) Pulse Ox 94 95 97 96 O2 Delivery Nasal Cannula* Nasal Cannula* Nasal Cannula* Nasal Cannula* O2 Flow Rate 2 2 2 2 FiO2 28 28 28 28 08/16/22 08/16/22 08/16/22 08/16/22 06:45 07:00 07:15 07:30 Pulse 65 66 69 65 Resp 9 22 23 20 B/P (MAP) 153/72 (99) 168/74 (105) 154/77 (102) 147/76 (99) Pulse Ox 97 95 96 96 O2 Delivery Nasal Cannula* Nasal Cannula* Nasal Cannula* Nasal Cannula* O2 Flow Rate 2 2 2 2 FiO2 28 28 28 28 08/16/22 08/16/22 08/16/22 08/16/22 07:45 07:50 08:00 08:11 Temp 98.2 Pulse 70 73 Resp 14 18 B/P (MAP) 166/84 (111) 165/69 (101) 165/69 Pulse Ox 95 96 O2 Delivery Nasal Cannula* Nasal Cannula Nasal Cannula* O2 Flow Rate 2 2.00 2 FiO2 28 08/16/22 08/16/22 08/16/22 08/16/22 08:12 08:12 08:15 08:30 Pulse 73 70 74 Resp 20 25 B/P (MAP) 165/69 165/69 176/86 (116) 204/103 (136) Pulse Ox 96 93 O2 Delivery Nasal Cannula* Nasal Cannula* O2 Flow Rate 2 2 FiO2 28 28 08/16/22 08/16/22 08/16/22 08/16/22 08:40 08:40 08:40 08:45 Pulse 74 74 74 72 Resp 30 30 30 26 B/P (MAP) 224/106 (145) Pulse Ox 95 95 95 95 O2 Delivery Nasal Cannula* Nasal Cannula* Nasal Cannula* Nasal Cannula* O2 Flow Rate 2 2 2 2 FiO2 28 28 28 28 08/16/22 08/16/22 09:00 09:15 Pulse 74 72 Resp 29 26 B/P (MAP) 220/119 (152) 167/101 (123) Pulse Ox 95 96 O2 Delivery Nasal Cannula* Nasal Cannula* O2 Flow Rate 2 2 FiO2 28 28 Intake and Output 08/16/22 07:00 Intake Total 1390 ml Output Total 1175 ml Balance 215 ml General: Alert, Oriented X3, mild distress HEENT: Atraumatic, PERRLA, EOMI Neck: Supple Lungs: Other (Few basilar crackles) Heart: Regular rate, Normal S1, Normal S2 Extremities: No clubbing, No cyanosis, No edema Neuro: Normal speech, Strength at 5/5 X4 ext All Results(Lab/Rad) Laboratory Tests Test 08/12/22 22:35 08/12/22 22:37 3/18/23 22:57 08/12/22 23:15 White Blood Count 14.1 10^3/uL (4.5-11.0) Red Blood Count 4.66 10^6/uL (4.00-5.20) Hemoglobin 13.3 g/dL (12.0-15.0) Hematocrit 43.4 % (36.0-46.0) Mean Corpuscular Volume 93.1 fL (78-100) Mean Corpuscular Hemoglobin 28.5 pg (26-34) Mean Corpuscular Hemoglobin Concent 30.6 g/dL (33-36.5) Red Cell Distribution Width 13.6 % (11.5-14.5) Platelet Count 220 10^3/uL (150-400) Mean Platelet Volume 11.0 fL (7.8-11.0) Neutrophils (%) (Auto) 43.4 % (41.0-85.0) Lymphocytes (%) (Auto) 50.1 % (24.0-44.0) Monocytes (%) (Auto) 4.1 % (5.0-12.0) Neutrophils # (Auto) 6.1 10^3/uL (1.8-7.7) Lymphocytes # (Auto) 7.07 10^3/uL1 (1.0-4.8) Monocytes # (Auto) 0.6 10^3/uL (0.3-0.8) Absolute Immature Granulocyte (auto 0.31 10^3 u/L (0-2) Absolute Eosinophils (auto) 0.3 10^3/uL (0.0-0.2) Immature Granulocytes % 2.20 % (0.00-0.50) Eosinophils % 1.8 % (0.0-5.0) Basophils % 0.6 % (0.0-0.2) Basophils # 0.1 10^3/uL (0.0-0.1) Prothrombin Time 11.2 SEC (9.1-11.5) INR International Normalized Ratio 1.1 Activated Partial Thromboplast Time 51.1 SEC (22.5-33.1) D-Dimer 21.17 mg/L (0.19-0.49) Sodium Level 145 mmol/L (132-145) Potassium Level 3.1 mmol/L (3.6-5.2) Chloride Level 105.0 mmol/L (96-109) Carbon Dioxide Level 14.5 mmol/L (20.0-32) Anion Gap 28.6 Blood Urea Nitrogen 16 mg/dL (7-18) Creatinine 1.41 mg/dL (0.59-1.40) Estimated GFR () 46.0 (>/=60) Est GFR (CKD-EPI)(Non-Afr Afghan) 38.0 (>/=60) BUN/Creatinine Ratio 11.0 Glucose Level 355 mg/dL (70-110) Calcium Level 8.3 mg/dL (8.4-10.5) Magnesium Level 2.6 mg/dL (1.8-2.4) Total Bilirubin 0.2 mg/dL (0.2-1.0) Aspartate Amino Transf (AST/SGOT) 152 U/L (0-35) Alanine Aminotransferase (ALT/SGPT) 104 U/L (12-78) Alkaline Phosphatase 152 U/L (50-136) Total Creatine Kinase 184 U/L (26-192) Creatine Kinase MB 4.9 ng/mL (0.5-3.6) Troponin I High Sensitivity 316 ng/L (0-50) Pro-B-Type Natriuretic Peptide 9118 pg/mL (0-125) Total Protein 5.8 g/dL (6.4-8.2) Albumin 2.5 g/dL (3.4-5.0) Globulin 3.3 Albumin/Globulin Ratio 0.757 Procalcitonin 0.05 ng/mL (0.05-0.5) Bedside Glucose 288 (70 - 110) Segmented Neutrophils 49 % (31-76) Lymphocytes 45 % (25-36) Monocytes 3 % (3-9) Absolute Eosinophils (Manual) 3 % (1-4) Platelet Estimate ADEQUATE Platelet Morphology NORMAL Urine Opiates Screen NEGATIVE (c/o300ng/mL) Urine Methadone Screen NEGATIVE (c/o300ng/mL) Urine Barbiturates Screen NEGATIVE (c/o200ng/mL) Urine Phencyclidine Screen NEGATIVE (c/o 25ng/mL) Ur Amphetamine/Methamphetamine NEGATIVE (ob9785cs/mL) Urine MDMA Screen (Ecstasy) NEGATIVE (c/o300ng/mL) Urine Benzodiazepines Screen NEGATIVE (c/o200ng/mL) Urine Cocaine Metabolite Screen NEGATIVE (c/o300ng/mL) Ur Tetrahydrocannabinol (THC) Scrn PRESUMPTIVE POSITIVE (c/o Test 08/12/22 23:30 08/12/22 23:35 08/13/22 01:43 08/13/22 03:50 Blood Gas Sample Site RB Arterial Blood Oxygen Saturation 93.6 % (94.0-97.00) Blood Gas Temperature 37 Triglycerides Level 201 mg/dL (20-200) Lactic Acid Level 14.5 mmol/L (0.5-1.9) Lactic Acid Followup at 2 Hours 1.2 mmol/L (0.5-1.9) Total Creatine Kinase 250 U/L (26-192) Creatine Kinase MB 10.3 ng/mL (0.5-3.6) Troponin I High Sensitivity 1948 ng/L (0-50) Test 08/13/22 04:30 08/13/22 05:08 08/13/22 10:09 08/13/22 11:10 Blood Gas Sample Site RT BRACIAL ARTERY RT BRACIAL ARTERY Arterial Blood Oxygen Saturation 96.2 % (94.0-97.00) 97.3 % (94.0-97.00) Blood Gas Temperature 37 37.0 Activated Partial Thromboplast Time 98.9 SEC (22.5-33.1) 36.1 SEC (22.5-33.1) Blood Gas pH 7.431 (7.350-7.450) Blood Gas PCO2 32.4 mmHg (35.0-45.0) Blood Gas PO2 93.5 mmHg (80.0-100.0) Blood Gas HCO3 21.1 mmol/L (22.0-26.0) Blood Gas Base Excess -2.3 mmol/L (-2.0-2.0) Duglas Test N/A Deoxyhemoglobin 2.6 % (0.0-5.0) Carboxyhemoglobin 2.3 % (0.0-3.9) Methemoglobin 0.1 % (0.00-5.0) Total Hemoglobin 14.7 % (12.0-17.8) Total Oxygen Concentration 19.7 % (13.5-17.5) Oxygen Delivery Method (LAB) VENT Blood Gas Vent Mode AC Blood Gas Vent Rate 16 FiO2 40 % (20-101) Blood Gas Tidal Volume 400 ML Blood Gas PEEP 8.0 CMH2O Total Carbon Dioxide 22.1 mmol/L (23-27) White Blood Count 17.0 10^3/uL (4.5-11.0) Red Blood Count 4.83 10^6/uL (4.00-5.20) Hemoglobin 13.8 g/dL (12.0-15.0) Hematocrit 42.1 % (36.0-46.0) Mean Corpuscular Volume 87.2 fL (78-100) Mean Corpuscular Hemoglobin 28.6 pg (26-34) Mean Corpuscular Hemoglobin Concent 32.8 g/dL (33-36.5) Red Cell Distribution Width 13.7 % (11.5-14.5) Platelet Count 187 10^3/uL (150-400) Mean Platelet Volume 11.2 fL (7.8-11.0) Neutrophils (%) (Auto) 86.9 % (41.0-85.0) Lymphocytes (%) (Auto) 7.2 % (24.0-44.0) Monocytes (%) (Auto) 5.4 % (5.0-12.0) Neutrophils # (Auto) 14.8 10^3/uL (1.8-7.7) Lymphocytes # (Auto) 1.23 10^3/uL1 (1.0-4.8) Monocytes # (Auto) 0.9 10^3/uL (0.3-0.8) Absolute Immature Granulocyte (auto 0.07 10^3 u/L (0-2) Absolute Eosinophils (auto) 0.0 10^3/uL (0.0-0.2) Immature Granulocytes % 0.40 % (0.00-0.50) Eosinophils % 0.0 % (0.0-5.0) Basophils % 0.1 % (0.0-0.2) Basophils # 0.0 10^3/uL (0.0-0.1) Sodium Level 142 mmol/L (132-145) Potassium Level 3.4 mmol/L (3.6-5.2) Chloride Level 105.0 mmol/L (96-109) Carbon Dioxide Level 23.3 mmol/L (20.0-32) Anion Gap 17.1 Blood Urea Nitrogen 30 mg/dL (7-18) Creatinine 1.56 mg/dL (0.59-1.40) Estimated GFR () 41.0 (>/=60) Est GFR (CKD-EPI)(Non-Afr Afghan) 33.9 (>/=60) BUN/Creatinine Ratio 19.0 Glucose Level 154 mg/dL (70-110) Calcium Level 7.5 mg/dL (8.4-10.5) Total Bilirubin 0.3 mg/dL (0.2-1.0) Aspartate Amino Transf (AST/SGOT) 189 U/L (0-35) Alanine Aminotransferase (ALT/SGPT) 135 U/L (12-78) Alkaline Phosphatase 162 U/L (50-136) Total Creatine Kinase 282 U/L (26-192) Creatine Kinase MB 7.9 ng/mL (0.5-3.6) Total Protein 6.2 g/dL (6.4-8.2) Albumin 2.9 g/dL (3.4-5.0) Globulin 3.3 Albumin/Globulin Ratio 0.878 Test 08/13/22 11:54 08/13/22 15:13 08/13/22 19:20 08/14/22 00:36 Nasal Adenovirus (PCR) NotDetected (NotDetected) Nasal Coronavirus Type 229E (PCR) NotDetected (NotDetected) Nasal Coronavirus Type HKU1 (PCR) NotDetected (NotDetected) Nasal Coronavirus Type NL63 (PCR) NotDetected (NotDetected) Nasal Coronavirus Type OC43 (PCR) NotDetected (NotDetected) Nasal Enterovirus/Rhinovirus (PCR) NotDetected (NotDetected) Nasal Influenza Type A (H1) (PCR) NotDetected (NotDetected) Nasal Influenza Type A (H3) (PCR) NotDetected (NotDetected) Nasal Swab Influenza Virus B (PCR) NotDetected (NotDetected) Nasal Parainfluenza Type 1 (PCR) NotDetected (NotDetected) Nasal Parainfluenza Type 2 (PCR) NotDetected (NotDetected) Nasal Parainfluenza Type 3 (PCR) NotDetected (NotDetected) Nasal Parainfluenza Type 4 (PCR) NotDetected (NotDetected) Nasal Resp Syncytial Virus (PCR) NotDetected (NotDetected) Nasal Bordetella pertussis DNA (PCR NotDetected (NotDetected) Nasal Chlamydophila pneumoniae (PCR NotDetected (NotDetected) Nasal Human Metapneumovirus (PCR) NotDetected (NotDetected) Nasal Mycoplasma pneumoniae (PCR) NotDetected (NotDetected) Nasal SARS-CoV-2 (PCR) NotDetected (NotDetected) Influenza A (PCR) NotDetected (NotDetected) Influenza Type A (H1N1/09) (PCR) NotDetected (NotDetected) Activated Partial Thromboplast Time 66.8 SEC (22.5-33.1) 67.5 SEC (22.5-33.1) Troponin I High Sensitivity 3793 ng/L (0-50) Bedside Glucose 94 (70 - 110) Test 08/14/22 04:20 08/14/22 06:36 08/14/22 08:00 White Blood Count 12.1 10^3/uL (4.5-11.0) Red Blood Count 4.19 10^6/uL (4.00-5.20) Hemoglobin 12.1 g/dL (12.0-15.0) Hematocrit 36.5 % (36.0-46.0) Mean Corpuscular Volume 87.1 fL (78-100) Mean Corpuscular Hemoglobin 28.9 pg (26-34) Mean Corpuscular Hemoglobin Concent 33.2 g/dL (33-36.5) Red Cell Distribution Width 14.3 % (11.5-14.5) Platelet Count 160 10^3/uL (150-400) Mean Platelet Volume 11.6 fL (7.8-11.0) Neutrophils (%) (Auto) 81.3 % (41.0-85.0) Lymphocytes (%) (Auto) 10.7 % (24.0-44.0) Monocytes (%) (Auto) 7.8 % (5.0-12.0) Neutrophils # (Auto) 9.9 10^3/uL (1.8-7.7) Lymphocytes # (Auto) 1.29 10^3/uL1 (1.0-4.8) Monocytes # (Auto) 1.0 10^3/uL (0.3-0.8) Absolute Immature Granulocyte (auto 0.03 10^3 u/L (0-2) Absolute Eosinophils (auto) 0.0 10^3/uL (0.0-0.2) Immature Granulocytes % 0.20 % (0.00-0.50) Eosinophils % 0.0 % (0.0-5.0) Basophils % 0.2 % (0.0-0.2) Basophils # 0.0 10^3/uL (0.0-0.1) Sodium Level 144 mmol/L (132-145) Potassium Level 3.0 mmol/L (3.6-5.2) Chloride Level 107.0 mmol/L (96-109) Carbon Dioxide Level 27.5 mmol/L (20.0-32) Anion Gap 12.5 Blood Urea Nitrogen 29 mg/dL (7-18) Creatinine 1.37 mg/dL (0.59-1.40) Estimated GFR () 47.6 (>/=60) Est GFR (CKD-EPI)(Non-Afr Afghan) 39.3 (>/=60) BUN/Creatinine Ratio 21.0 Glucose Level 110 mg/dL (70-110) Calcium Level 7.7 mg/dL (8.4-10.5) Total Bilirubin 0.4 mg/dL (0.2-1.0) Aspartate Amino Transf (AST/SGOT) 56 U/L (0-35) Alanine Aminotransferase (ALT/SGPT) 88 U/L (12-78) Alkaline Phosphatase 123 U/L (50-136) Total Creatine Kinase 296 U/L (26-192) Total Protein 5.8 g/dL (6.4-8.2) Albumin 2.6 g/dL (3.4-5.0) Globulin 3.2 Albumin/Globulin Ratio 0.812 Bedside Glucose 114 (70 - 110) Blood Gas Sample Site RT BRACIAL ARTERY Blood Gas pH 7.418 (7.350-7.450) Blood Gas PCO2 36.4 mmHg (35.0-45.0) Blood Gas PO2 66.7 mmHg (80.0-100.0) Blood Gas HCO3 23.0 mmol/L (22.0-26.0) Blood Gas Base Excess -1.1 mmol/L (-2.0-2.0) Duglas Test N/A Arterial Blood Oxygen Saturation 93.1 % (94.0-97.00) Deoxyhemoglobin 6.9 % (0.0-5.0) Carboxyhemoglobin 0.3 % (0.0-3.9) Methemoglobin 0.3 % (0.00-5.0) Total Hemoglobin 12.1 % (12.0-17.8) Total Oxygen Concentration 15.8 % (13.5-17.5) Blood Gas Temperature 37.0 Oxygen Delivery Method (LAB) VENT Blood Gas Vent Mode AC Blood Gas Vent Rate 16 FiO2 40 % (20-101) Blood Gas Tidal Volume 400 ML Blood Gas PEEP 5.0 CMH2O Total Carbon Dioxide 24.1 mmol/L (23-27) Assessment/Plan Assessment/Plan Assessment/Plan * Status post cardiopulmonary arrest. * Acute decompensated heart failure secondary to diastolic dysfunction * Extensive lower lung consolidation with ground glass opacities in the upper lungs consistent with extensive multifocal pneumonia. * Acute febrile episode with a T-max of 100.9 degrees Fahrenheit. * Elevated white blood cell count that is currently trending up. * Acute non-ST elevation myocardial infarction -- cannot exclude true ACS versus elevated troponins post-ACLS and chest compressions. * Presumed new left bundle branch block on ECG. * Congestive hepatopathy. * Hypertension. * Hyperlipidemia. * Ventilator-dependent respiratory failure. LHC done 08/13/22: * Nonobstructive coronary artery disease. * Selective coronary angiography. * "Double barrel takeoff" of the left anterior descending artery and the left circumflex artery. * Left ventriculography. * Left ventricular ejection fraction of 55%. * Left ventricular end-diastolic pressure of 13. * Hemostasis established using a 6-Swazi Mynx control. Extubated LVEF 55-60% on echo Continue cardiac meds Monitor BP/HR No further cardiac w/up is necessary at this time. Will sign off. 08/15/2022 Cardiac Arrest - 6 min of Coding with 1 epi and 1 bicarb then ROSC. LHC with no acute findings yesterday. ECHO done this morning. Has been able to hold pressures and HR without vasopressors. Amiodarone discontinued 08/13. Extubated 08/14 Leukocytosis - ? Pneumonia pneumonia could be interstitial edema? doxy and rocephin at this time. ROSARIO - further improving, good urine output. monitor. Hypokalemia - replacing via IV today. monitor. Magnesium Magnesium 1.7. This will be replaced Necrotic tissue of left forearm - monitor closely. ?HTN - hydralazine and coreg, monitor BP closely THC use - counselling on cessation during course of stay. Hypomagnesemia. Will be replaced GI and DVT prophylaxis zofran prn for nausea acetaminophen and morphine prn per pain scale oral care after extubation Time spent examining the patient, reviewing history, reviewing labs, images, med ications, discussing the case with CLAIM PROCESSOR, patient, documentation and placing orders 45 minutes 08/16/2022 Sitting up in bed. Still complaining of chest discomfort. Feeling weak. Labs reviewed. Current medications reviewed. Otherwise no new complaints.We will consult physical therapy, try to get the patient out of bed.Continue current medications. Appreciate telemetry inventory control supervisor input and help. Appreciate loan funder input and help. Case discussed with CLAIM PROCESSOR. Cardiac Arrest - With return of spontaneous circulation. Leukocytosis - ? Pneumonia pneumonia could be interstitial edema? doxy and rocephin at this time. ROSARIO - further improving, good urine output. monitor. Hypokalemia - Replace Necrotic tissue of left forearm - monitor closely. ?HTN - hydralazine and coreg, THC use - counselling on cessation during course of stay. Hypomagnesemia. Replace GI and DVT prophylaxis zofran prn for nausea acetaminophen and morphine prn per pain scale oral care after extubation Weakness, consult physical therapyEvaluationAnd treatment Time spent examining the patient, reviewing history, reviewing labs, images, medications, discussing the case with CLAIM PROCESSOR, patient, documentation and placing orders 40 minutes Problems: (1) Cardiopulmonary arrest Status: Resolved ICD Code: I46.9 - Cardiac arrest, cause unspecified SNOMED: 340110699 (2) NSTEMI (non-ST elevated myocardial infarction) Status: Acute ICD Code: I21.4 - Non-ST elevation (NSTEMI) myocardial infarction SNOMED: 90199085 (3) Acute respiratory failure Status: Acute ICD Code: J96.00 - Acute respiratory failure, unspecified whether with hypoxia or hypercapnia SNOMED: 80830076 (4) Pneumonia Status: Acute ICD Code: J18.9 - Pneumonia, unspecified organism SNOMED: 573918897, [id number] (5) CHF exacerbation Status: Acute ICD Code: I50.9 - Heart failure, unspecified SNOMED: 784912243, [id number] Problem Qualifiers (1) Acute respiratory failure: Respiratory failure complication: hypoxia and hypercapnia Qualified Codes: J96.01 - Acute respiratory failure with hypoxia; J96.02 - Acute respiratory fa ilure with hypercapnia (2) Pneumonia: Pneumonia type: due to unspecified organism Laterality: unspecified laterality Lung location: unspecified part of lung Qualified Codes: J18.9 - Pneumonia, unspecified organism (3) CHF exacerbation: Heart failure type: unspecified Qualified Codes: I50.9 - Heart failure, unspecified ROLAND ISAACS MD Aug 16, 2022 10:17
[2022-08-16] MEDS: LOVENOX SQ SCH (10:47)
[2022-08-16] MEDS: ROCEPHIN 1,000 MG in NS 100ML 100 ML IV SCH (12:29)
[2022-08-16] MEDS: LIPITOR PO SCH (20:15)
[2022-08-16] MEDS ORDERED: NS 100ML 100 ML IV ONE (20:26)
[2022-08-17 00:30] VITALS: BP 148/59
[2022-08-17] MEDS: DUO 0.5-3(2.5) MG/3 ML IH PRN ×4 (03:29→21:02)
[2022-08-17] MEDS: APRESOLINE IV PRN ×3 (03:35→12:04)
--- NOTE | 2022-08-17 04:15 | NUR ---
informed Dr. Verma patient BP is 170/72 and gave her Apresoline 10mg and after 30mins rechecking of BP and the result is 179/70 Addendum: 08/17/22 at 0417 by ANNA DUNN RN,OPTOMETRIST ASSISTANT he ordered to give another 10mg of Apresoline IV
[2022-08-17 05:00] LABS: BASOPHIL % 0.4 % (0.0-0.2); EOSINOPHIL # 0.1 10^3/uL (0.0-0.2); LYMPHOCYTES # 1.54 10^3/uL1 (1.0-4.8); LYMPHOCYTES % 14.1 % (24.0-44.0); MEAN CORP HGB 28.7 pg (26-34); MONOCYTES # 1.3 10^3/uL (0.3-0.8); NEUTROPHIL # 7.9 10^3/uL (1.8-7.7); NEUTROPHILS % 72.5 % (41.0-85.0); PLATELET COUNT 169 10^3/uL (150-400); RED CELL DISTRIBUTION WIDTH 13.8 % (11.5-14.5)
[2022-08-17 05:10] LABS: CARBON DIOXIDE 25.2 mmol/L (20.0-32)
[2022-08-17 07:28] VITALS: BP 200/78
[2022-08-17] MEDS ORDERED: KLOR-CON 10 PO SCH (08:30)
[2022-08-17] MEDS: PERIDEX MM SCH ×2 (09:00→20:57)
[2022-08-17] MEDS: APRESOLINE PO SCH ×3 (09:07→20:57)
[2022-08-17] MEDS: PROTONIX IV IV SCH (09:07)
[2022-08-17] MEDS: COZAAR PO SCH (09:07)
[2022-08-17] MEDS: VIBRAMYCIN 100 MG in NS 100ML 100 ML IV SCH ×2 (09:07→20:56)
[2022-08-17] MEDS: LASIX IV SCH (09:07)
[2022-08-17] MEDS: ASPIRIN EC PO SCH (09:07)
[2022-08-17] MEDS: COREG PO SCH ×2 (09:08→20:56)
[2022-08-17] MEDS: LOVENOX SQ SCH (11:11)
[2022-08-17] MEDS: ROCEPHIN 1,000 MG in NS 100ML 100 ML IV SCH (11:11)
[2022-08-17 11:59] VITALS: BP 171/136
--- NOTE | 2022-08-17 12:17 | PRM.PN ---
Subjective Subjective Date: Aug 17, 2022 Time: 09:00 Subjective Sitting up in bed. Still complaining of chest pain especially when trying to take a deep breath. Still requiring nasal cannula oxygen. I did explain to the patient to try to take a deep breath. Incentive spirometry. Patient's son at the bedside. Patient condition and plan of care was discussed. Patient was seen by physical therapy. Probably patient will need rehab.Otherwise today her potassium is 3.1. Will be replaced. Case discussed with patient, son, case management and RN. Review of Systems Constitutional: Weakness; No: Fever, Chills, Sweats, Malaise, Other Eyes: No: Pain, Vision change, Conjunctivae inflammation, Eyelid inflammation, Other, Redness ENT: No: Ear pain, Ear discharge, Nose pain, Nose discharge, Nose congestion, Mouth pain, Mouth swelling, Throat pain, Throat swelling, Other Respiratory: SOB with excertion; No: Cough, Dry, Shortness of breath, Wheezing, Hemoptysis, Pleuritic Pain, Sputum, Wheezing, Other Cardiovascular: Chest Pain Gastrointestinal: No: Nausea, Vomiting, Abdominal Pain, Diarrhea, Constipation, Melena, Hematochezia, Other Musculoskeletal: No: other, neck pain, shoulder pain, arm pain, back pain, hand pain, leg pain, foot pain Neurological: Weakness Allergies: Coded Allergies: No Known Drug Allergies (Verified Allergy, Unknown, 08/13/22) Objective Vitals and I/O Vital Sign - Last 24 Hours 08/16/22 08/16/22 08/16/22 08/16/22 12:15 12:16 12:30 12:45 Pulse 73 71 70 71 Resp 23 21 18 22 B/P (MAP) 148/77 (100) 159/75 (103) 114/70 (85) Pulse Ox 96 98 97 99 O2 Delivery Nasal Cannula* Nasal Cannula* Nasal Cannula* Nasal Cannula* O2 Flow Rate 2 2 2 2 FiO2 28 08/16/22 08/16/22 08/16/22 08/16/22 13:00 13:15 13:30 13:32 Pulse 69 64 Resp 22 17 B/P (MAP) 116/64 (81) 136/63 (87) Pulse Ox 98 99 O2 Delivery Nasal Cannula* Nasal Cannula* Nasal Cannula* Nasal Cannula* O2 Flow Rate 2 2 2 2 FiO2 28 28 28 28 08/16/22 08/16/22 08/16/22 08/16/22 13:45 14:00 14:15 14:30 Pulse 66 67 67 63 Resp 21 23 11 9 B/P (MAP) 163/84 (110) 183/80 (114) 147/71 (96) Pulse Ox 97 98 99 98 O2 Delivery Nasal Cannula* Nasal Cannula* Nasal Cannula* Nasal Cannula* O2 Flow Rate 2 2 2 2 FiO2 28 28 28 28 08/16/22 08/16/22 08/16/22 08/16/22 14:31 14:45 14:46 15:00 Pulse 79 63 63 69 Resp 9 15 16 21 B/P (MAP) 120/62 (81) 144/67 (92) Pulse Ox 98 98 99 96 O2 Delivery Nasal Cannula* Nasal Cannula* Nasal Cannula* Nasal Cannula* O2 Flow Rate 2 2 2 2 FiO2 28 28 28 28 08/16/22 08/16/22 08/16/22 08/16/22 15:14 15:15 15:30 15:37 Pulse 64 67 64 Resp 9 17 B/P (MAP) 136/63 Pulse Ox 98 98 99 O2 Delivery Nasal Cannula* Nasal Cannula* Nasal Cannula* O2 Flow Rate 2 2 2 FiO2 28 08/16/22 08/16/22 08/16/22 08/16/22 15:37 15:45 15:52 15:56 Temp 99.4 Pulse 68 61 69 Resp 18 20 18 B/P (MAP) 166/85 (112) Pulse Ox 99 99 95 O2 Delivery Nasal Cannula* Nasal Cannula* Nasal Cannula Nasal Cannula* O2 Flow Rate 2 2 1.50 1 FiO2 28 24 08/16/22 08/16/22 08/16/22 08/16/22 19:51 20:00 20:11 20:12 Temp 98.2 Pulse 68 68 68 Resp 20 22 B/P (MAP) 158/74 (102) Pulse Ox 95 95 95 O2 Delivery Room Air* Nasal Cannula Nasal Cannula* Nasal Cannula* O2 Flow Rate 0 1.50 2 2 FiO2 21 28 28 08/16/22 08/16/22 08/17/22 08/17/22 20:12 20:15 00:30 03:29 Temp 97.6 Pulse 69 69 68 72 Resp 22 18 20 B/P (MAP) 158/74 148/59 (88) Pulse Ox 95 89 93 O2 Delivery Nasal Cannula* Nasal Cannula* Nasal Cannula* O2 Flow Rate 2 2 2 FiO2 28 28 28 08/17/22 08/17/22 08/17/22 08/17/22 03:30 03:35 04:20 07:28 Temp 98.9 Pulse 70 80 60 67 Resp 20 18 B/P (MAP) 170/72 179/70 200/78 (118) Pulse Ox 94 92 O2 Delivery Nasal Cannula* Nasal Cannula* O2 Flow Rate 2 1 FiO2 28 24 08/17/22 08/17/22 08/17/22 08/17/22 09:07 09:07 09:07 09:13 Pulse 67 79 Resp 18 B/P (MAP) 200/78 200/78 200/78 Pulse Ox 94 O2 Delivery Nasal Cannula* O2 Flow Rate 2 FiO2 28 08/17/22 08/17/22 08/17/22 09:15 11:59 12:04 Temp 98.4 Pulse 79 74 74 Resp 18 16 B/P (MAP) 171/136 (148) 171/136 Pulse Ox 94 96 O2 Delivery Nasal Cannula* Nasal Cannula* O2 Flow Rate 1 2 FiO2 24 28 Intake and Output 08/17/22 07:00 Intake Total 811 ml Output Total 1425 ml Balance -614 ml General: Alert, Oriented X3, mild distress HEENT: Atraumatic, PERRLA, EOMI Neck: Supple Lungs: Other (Few basilar crackles) Heart: Regular rate, Normal S1, Normal S2 Extremities: No clubbing, No cyanosis, No edema Neuro: Normal speech, Strength at 5/5 X4 ext All Results(Lab/Rad) Laboratory Tests Test 08/12/22 22:35 08/12/22 22:37 08/12/22 22:57 08/12/22 23:15 White Blood Count 14.1 10^3/uL (4.5-11.0) Red Blood Count 4.66 10^6/uL (4.00-5.20) Hemoglobin 13.3 g/dL (12.0-15.0) Hematocrit 43.4 % (36.0-46.0) Mean Corpuscular Volume 93.1 fL (78-100) Mean Corpuscular Hemoglobin 28.5 pg (26-34) Mean Corpuscular Hemoglobin Concent 30.6 g/dL (33-36.5) Red Cell Distribution Width 13.6 % (11.5-14.5) Platelet Count 220 10^3/uL (150-400) Mean Platelet Volume 11.0 fL (7.8-11.0) Neutrophils (%) (Auto) 43.4 % (41.0-85.0) Lymphocytes (%) (Auto) 50.1 % (24.0-44.0) Monocytes (%) (Auto) 4.1 % (5.0-12.0) Neutrophils # (Auto) 6.1 10^3/uL (1.8-7.7) Lymphocytes # (Auto) 7.07 10^3/uL1 (1.0-4.8) Monocytes # (Auto) 0.6 10^3/uL (0.3-0.8) Absolute Immature Granulocyte (auto 0.31 10^3 u/L (0-2) Absolute Eosinophils (auto) 0.3 10^3/uL (0.0-0.2) Immature Granulocytes % 2.20 % (0.00-0.50) Eosinophils % 1.8 % (0.0-5.0) Basophils % 0.6 % (0.0-0.2) Basophils # 0.1 10^3/uL (0.0-0.1) Prothrombin Time 11.2 SEC (9.1-11.5) INR International Normalized Ratio 1.1 Activated Partial Thromboplast Time 51.1 SEC (22.5-33.1) D-Dimer 21.17 mg/L (0.19-0.49) Sodium Level 145 mmol/L (132-145) Potassium Level 3.1 mmol/L (3.6-5.2) Chloride Level 105.0 mmol/L (96-109) Carbon Dioxide Level 14.5 mmol/L (20.0-32) Anion Gap 28.6 Blood Urea Nitrogen 16 mg/dL (7-18) Creatinine 1.41 mg/dL (0.59-1.40) Estimated GFR () 46.0 (>/=60) Est GFR (CKD-EPI)(Non-Afr Lao) 38.0 (>/=60) BUN/Creatinine Ratio 11.0 Glucose Level 355 mg/dL (70-110) Calcium Level 8.3 mg/dL (8.4-10.5) Magnesium Level 2.6 mg/dL (1.8-2.4) Total Bilirubin 0.2 mg/dL (0.2-1.0) Aspartate Amino Transf (AST/SGOT) 152 U/L (0-35) Alanine Aminotransferase (ALT/SGPT) 104 U/L (12-78) Alkaline Phosphatase 152 U/L (50-136) Total Creatine Kinase 184 U/L (26-192) Creatine Kinase MB 4.9 ng/mL (0.5-3.6) Troponin I High Sensitivity 316 ng/L (0-50) Pro-B-Type Natriuretic Peptide 9118 pg/mL (0-125) Total Protein 5.8 g/dL (6.4-8.2) Albumin 2.5 g/dL (3.4-5.0) Globulin 3.3 Albumin/Globulin Ratio 0.757 Procalcitonin 0.05 ng/mL (0.05-0.5) Bedside Glucose 288 (70 - 110) Segmented Neutrophils 49 % (31-76) Lymphocytes 45 % (25-36) Monocytes 3 % (3-9) Absolute Eosinophils (Manual) 3 % (1-4) Platelet Estimate ADEQUATE Platelet Morphology NORMAL Urine Opiates Screen NEGATIVE (c/o300ng/mL) Urine Methadone Screen NEGATIVE (c/o300ng/mL) Urine Barbiturates Screen NEGATIVE (c/o200ng/mL) Urine Phencyclidine Screen NEGATIVE (c/o 25ng/mL) Ur Amphetamine/Methamphetamine NEGATIVE (xf8632jp/mL) Urine MDMA Screen (Ecstasy) NEGATIVE (c/o300ng/mL) Urine Benzodiazepines Screen NEGATIVE (c/o200ng/mL) Urine Cocaine Metabolite Screen NEGATIVE (c/o300ng/mL) Ur Tetrahydrocannabinol (THC) Scrn PRESUMPTIVE POSITIVE (c/o Test 08/12/22 23:30 08/12/22 23:35 08/13/22 01:43 08/13/22 03:50 Blood Gas Sample Site RB Arterial Blood Oxygen Saturation 93.6 % (94.0-97.00) Blood Gas Temperature 37 Triglycerides Level 201 mg/dL (20-200) Lactic Acid Level 14.5 mmol/L (0.5-1.9) Lactic Acid Followup at 2 Hours 1.2 mmol/L (0.5-1.9) Total Creatine Kinase 250 U/L (26-192) Creatine Kinase MB 10.3 ng/mL (0.5-3.6) Troponin I High Sensitivity 1948 ng/L (0-50) Test 08/13/22 04:30 08/13/22 05:08 08/13/22 10:09 08/13/22 11:10 Blood Gas Sample Site RT BRACIAL ARTERY RT BRACIAL ARTERY Arterial Blood Oxygen Saturation 96.2 % (94.0-97.00) 97.3 % (94.0-97.00) Blood Gas Temperature 37 37.0 Activated Partial Thromboplast Time 98.9 SEC (22.5-33.1) 36.1 SEC (22.5-33.1) Blood Gas pH 7.431 (7.350-7.450) Blood Gas PCO2 32.4 mmHg (35.0-45.0) Blood Gas PO2 93.5 mmHg (80.0-100.0) Blood Gas HCO3 21.1 mmol/L (22.0-26.0) Blood Gas Base Excess -2.3 mmol/L (-2.0-2.0) Duglas Test N/A Deoxyhemoglobin 2.6 % (0.0-5.0) Carboxyhemoglobin 2.3 % (0.0-3.9) Methemoglobin 0.1 % (0.00-5.0) Total Hemoglobin 14.7 % (12.0-17.8) Total Oxygen Concentration 19.7 % (13.5-17.5) Oxygen Delivery Method (LAB) VENT Blood Gas Vent Mode AC Blood Gas Vent Rate 16 FiO2 40 % (20-101) Blood Gas Tidal Volume 400 ML Blood Gas PEEP 8.0 CMH2O Total Carbon Dioxide 22.1 mmol/L (23-27) White Blood Count 17.0 10^3/uL (4.5-11.0) Red Blood Count 4.83 10^6/uL (4.00-5.20) Hemoglobin 13.8 g/dL (12.0-15.0) Hematocrit 42.1 % (36.0-46.0) Mean Corpuscular Volume 87.2 fL (78-100) Mean Corpuscular Hemoglobin 28.6 pg (26-34) Mean Corpuscular Hemoglobin Concent 32.8 g/dL (33-36.5) Red Cell Distribution Width 13.7 % (11.5-14.5) Platelet Count 187 10^3/uL (150-400) Mean Platelet Volume 11.2 fL (7.8-11.0) Neutrophils (%) (Auto) 86.9 % (41.0-85.0) Lymphocytes (%) (Auto) 7.2 % (24.0-44.0) Monocytes (%) (Auto) 5.4 % (5.0-12.0) Neutrophils # (Auto) 14.8 10^3/uL (1.8-7.7) Lymphocytes # (Auto) 1.23 10^3/uL1 (1.0-4.8) Monocytes # (Auto) 0.9 10^3/uL (0.3-0.8) Absolute Immature Granulocyte (auto 0.07 10^3 u/L (0-2) Absolute Eosinophils (auto) 0.0 10^3/uL (0.0-0.2) Immature Granulocytes % 0.40 % (0.00-0.50) Eosinophils % 0.0 % (0.0-5.0) Basophils % 0.1 % (0.0-0.2) Basophils # 0.0 10^3/uL (0.0-0.1) Sodium Level 142 mmol/L (132-145) Potassium Level 3.4 mmol/L (3.6-5.2) Chloride Level 105.0 mmol/L (96-109) Carbon Dioxide Level 23.3 mmol/L (20.0-32) Anion Gap 17.1 Blood Urea Nitrogen 30 mg/dL (7-18) Creatinine 1.56 mg/dL (0.59-1.40) Estimated GFR () 41.0 (>/=60) Est GFR (CKD-EPI)(Non-Afr Lao) 33.9 (>/=60) BUN/Creatinine Ratio 19.0 Glucose Level 154 mg/dL (70-110) Calcium Level 7.5 mg/dL (8.4-10.5) Total Bilirubin 0.3 mg/dL (0.2-1.0) Aspartate Amino Transf (AST/SGOT) 189 U/L (0-35) Alanine Aminotransferase (ALT/SGPT) 135 U/L (12-78) Alkaline Phosphatase 162 U/L (50-136) Total Creatine Kinase 282 U/L (26-192) Creatine Kinase MB 7.9 ng/mL (0.5-3.6) Total Protein 6.2 g/dL (6.4-8.2) Albumin 2.9 g/dL (3.4-5.0) Globulin 3.3 Albumin/Globulin Ratio 0.878 Test 08/13/22 11:54 08/13/22 15:13 08/13/22 19:20 08/14/22 00:36 Nasal Adenovirus (PCR) NotDetected (NotDetected) Nasal Coronavirus Type 229E (PCR) NotDetected (NotDetected) Nasal Coronavirus Type HKU1 (PCR) NotDetected (NotDetected) Nasal Coronavirus Type NL63 (PCR) NotDetected (NotDetected) Nasal Coronavirus Type OC43 (PCR) NotDetected (NotDetected) Nasal Enterovirus/Rhinovirus (PCR) NotDetected (NotDetected) Nasal Influenza Type A (H1) (PCR) NotDetected (NotDetected) Nasal Influenza Type A (H3) (PCR) NotDetected (NotDetected) Nasal Swab Influenza Virus B (PCR) NotDetected (NotDetected) Nasal Parainfluenza Type 1 (PCR) NotDetected (NotDetected) Nasal Parainfluenza Type 2 (PCR) NotDetected (NotDetected) Nasal Parainfluenza Type 3 (PCR) NotDetected (NotDetected) Nasal Parainfluenza Type 4 (PCR) NotDetected (NotDetected) Nasal Resp Syncytial Virus (PCR) NotDetected (NotDetected) Nasal Bordetella pertussis DNA (PCR NotDetected (NotDetected) Nasal Chlamydophila pneumoniae (PCR NotDetected (NotDetected) Nasal Human Metapneumovirus (PCR) NotDetected (NotDetected) Nasal Mycoplasma pneumoniae (PCR) NotDetected (NotDetected) Nasal SARS-CoV-2 (PCR) NotDetected (NotDetected) Influenza A (PCR) NotDetected (NotDetected) Influenza Type A (H1N1/09) (PCR) NotDetected (NotDetected) Activated Partial Thromboplast Time 66.8 SEC (22.5-33.1) 67.5 SEC (22.5-33.1) Troponin I High Sensitivity 3793 ng/L (0-50) Bedside Glucose 94 (70 - 110) Test 08/14/22 04:20 08/14/22 06:36 08/14/22 08:00 White Blood Count 12.1 10^3/uL (4.5-11.0) Red Blood Count 4.19 10^6/uL (4.00-5.20) Hemoglobin 12.1 g/dL (12.0-15.0) Hematocrit 36.5 % (36.0-46.0) Mean Corpuscular Volume 87.1 fL (78-100) Mean Corpuscular Hemoglobin 28.9 pg (26-34) Mean Corpuscular Hemoglobin Concent 33.2 g/dL (33-36.5) Red Cell Distribution Width 14.3 % (11.5-14.5) Platelet Count 160 10^3/uL (150-400) Mean Platelet Volume 11.6 fL (7.8-11.0) Neutrophils (%) (Auto) 81.3 % (41.0-85.0) Lymphocytes (%) (Auto) 10.7 % (24.0-44.0) Monocytes (%) (Auto) 7.8 % (5.0-12.0) Neutrophils # (Auto) 9.9 10^3/uL (1.8-7.7) Lymphocytes # (Auto) 1.29 10^3/uL1 (1.0-4.8) Monocytes # (Auto) 1.0 10^3/uL (0.3-0.8) Absolute Immature Granulocyte (auto 0.03 10^3 u/L (0-2) Absolute Eosinophils (auto) 0.0 10^3/uL (0.0-0.2) Immature Granulocytes % 0.20 % (0.00-0.50) Eosinophils % 0.0 % (0.0-5.0) Basophils % 0.2 % (0.0-0.2) Basophils # 0.0 10^3/uL (0.0-0.1) Sodium Level 144 mmol/L (132-145) Potassium Level 3.0 mmol/L (3.6-5.2) Chloride Level 107.0 mmol/L (96-109) Carbon Dioxide Level 27.5 mmol/L (20.0-32) Anion Gap 12.5 Blood Urea Nitrogen 29 mg/dL (7-18) Creatinine 1.37 mg/dL (0.59-1.40) Estimated GFR () 47.6 (>/=60) Est GFR (CKD-EPI)(Non-Afr Lao) 39.3 (>/=60) BUN/Creatinine Ratio 21.0 Glucose Level 110 mg/dL (70-110) Calcium Level 7.7 mg/dL (8.4-10.5) Total Bilirubin 0.4 mg/dL (0.2-1.0) Aspartate Amino Transf (AST/SGOT) 56 U/L (0-35) Alanine Aminotransferase (ALT/SGPT) 88 U/L (12-78) Alkaline Phosphatase 123 U/L (50-136) Total Creatine Kinase 296 U/L (26-192) Total Protein 5.8 g/dL (6.4-8.2) Albumin 2.6 g/dL (3.4-5.0) Globulin 3.2 Albumin/Globulin Ratio 0.812 Bedside Glucose 114 (70 - 110) Blood Gas Sample Site RT BRACIAL ARTERY Blood Gas pH 7.418 (7.350-7.450) Blood Gas PCO2 36.4 mmHg (35.0-45.0) Blood Gas PO2 66.7 mmHg (80.0-100.0) Blood Gas HCO3 23.0 mmol/L (22.0-26.0) Blood Gas Base Excess -1.1 mmol/L (-2.0-2.0) Duglas Test N/A Arterial Blood Oxygen Saturation 93.1 % (94.0-97.00) Deoxyhemoglobin 6.9 % (0.0-5.0) Carboxyhemoglobin 0.3 % (0.0-3.9) Methemoglobin 0.3 % (0.00-5.0) Total Hemoglobin 12.1 % (12.0-17.8) Total Oxygen Concentration 15.8 % (13.5-17.5) Blood Gas Temperature 37.0 Oxygen Delivery Method (LAB) VENT Blood Gas Vent Mode AC Blood Gas Vent Rate 16 FiO2 40 % (20-101) Blood Gas Tidal Volume 400 ML Blood Gas PEEP 5.0 CMH2O Total Carbon Dioxide 24.1 mmol/L (23-27) Assessment/Plan Assessment/Plan Assessment/Plan * Status post cardiopulmonary arrest. * Acute decompensated heart failure secondary to diastolic dysfunction * Extensive lower lung consolidation with ground glass opacities in the upper lungs consistent with extensive multifocal pneumonia. * Acute febrile episode with a T-max of 100.9 degrees Fahrenheit. * Elevated white blood cell count that is currently trending up. * Acute non-ST elevation myocardial infarction -- cannot exclude true ACS versus elevated troponins post-ACLS and chest compressions. * Presumed new left bundle branch block on ECG. * Congestive hepatopathy. * Hypertension. * Hyperlipidemia. * Ventilator-dependent respiratory failure. LHC done 08/13/22: * Nonobstructive coronary artery disease. * Selective coronary angiography. * "Double barrel takeoff" of the left anterior descending artery and the left circumflex artery. * Left ventriculography. * Left ventricular ejection fraction of 55%. * Left ventricular end-diastolic pressure of 13. * Hemostasis established using a 6-Irish Mynx control. Extubated LVEF 55-60% on echo Continue cardiac meds Monitor BP/HR No further cardiac w/up is necessary at this time. Will sign off. 08/15/2022 Cardiac Arrest - 6 min of Coding with 1 epi and 1 bicarb then ROSC. LHC with no acute findings yesterday. ECHO done this morning. Has been able to hold pressures and HR without vasopressors. Amiodarone discontinued 08/13. Extubated 08/14 Leukocytosis - ? Pneumonia pneumonia could be interstitial edema? doxy and rocephin at this time. ROSARIO - further improving, good urine output. monitor. Hypokalemia - replacing via IV today. monitor. Magnesium Magnesium 1.7. This will be replaced Necrotic tissue of left forearm - monitor closely. ?HTN - hydralazine and coreg, monitor BP closely THC use - counselling on cessation during course of stay. Hypomagnesemia. Will be replaced GI and DVT prophylaxis zofran prn for nausea acetaminophen and morphine prn per pain scale oral care after extubation Time spent examining the patient, reviewing history, reviewing labs, images, medications, discussing the case with COLLEGE PROFESSOR, patient, documentation and placing orders 45 minutes 08/16/2022 Sitting up in bed. Still complaining of chest discomfort. Feeling weak. Labs reviewed. Current medications reviewed. Otherwise no new complaints.We will consult physical therapy, try to get the patient out of bed.Continue current medications. Appreciate telemetry software clerk input and help. Appreciate director public input and help. Case discussed with COLLEGE PROFESSOR. Cardiac Arrest - With return of spontaneous circulation. Leukocytosis - ? Pneumonia pneumonia could be interstitial edema? doxy and rocephin at this time. ROSARIO - further improving, good urine output. monitor. Hypokalemia - Replace Necrotic tissue of left forearm - monitor closely. ?HTN - hydralazine and coreg, THC use - counselling on cessation during course of stay. Hypomagnesemia. Replace GI and DVT prophylaxis zofran prn for nausea acetaminophen and morphine prn per pain scale oral care after extubation Weakness, consult physical therapyEvaluationAnd treatment 08/17/2022 Sitting up in bed. Still complaining of chest pain especially when trying to take a deep breath. Still requiring nasal cannula oxygen. I did explain to the patient to try to take a deep breath. Incentive spirometry. Patient's son at the bedside. Patient condition and plan of care was discussed. Patient was seen by physical therapy. Probably patient will need rehab.Otherwise today her potassium is 3.1. Will be replaced. Case discussed with patient, son, case management and RN. Time spent examining the patient, reviewing history, reviewing labs, images, medications, discussing the case with COLLEGE PROFESSOR, patient,Patient's son, documentation and placing orders 35 minutes Problems: (1) Cardiopulmonary arrest Status: Resolved ICD Code: I46.9 - Cardiac arrest, cause unspecified SNOMED: 031304399 (2) Acute hypoxemic respiratory failure Status: Acute ICD Code: J96.01 - Acute respiratory failure with hypoxia SNOMED: 729443135 (3) NSTEMI (non-ST elevated myocardial infarction) Status: Acute ICD Code: I21.4 - Non-ST elevation (NSTEMI) myocardial infarction SNOMED: 18780311 (4) CHF exacerbation Status: Acute ICD Code: I50.9 - Heart failure, unspecified SNOMED: 161577763, 10059351642259 (5) Pneumonia Status: Acute ICD Code: J18.9 - Pneumonia, unspecified organism SNOMED: 803582185, 34935599719170 Problem Qualifiers (1) CHF exacerbation: Heart failure type: unspecified Qualified Codes: I50.9 - Heart failure, unspecified (2) Pneumonia: Pneumonia type: due to unspecified organism Laterality: unspecified laterality Lung location: unspecified part of lung Qualified Codes: J18.9 - Pneumonia, unspecified organism ROLAND ISAACS MD Aug 17, 2022 12:17
[2022-08-17 16:08] VITALS: BP 97/67
[2022-08-17] MEDS: ULTRAM PO PRN (17:36)
[2022-08-17] MEDS: DILAUDID IV PRN (20:55)
[2022-08-17] MEDS: LIPITOR PO SCH (20:56)
[2022-08-18 00:05] VITALS: BP 99/59
[2022-08-18] MEDS: DUO 0.5-3(2.5) MG/3 ML IH PRN ×2 (03:46→09:44)
[2022-08-18 04:37] VITALS: BP 103/62
[2022-08-18 05:25] LABS: BASOPHIL % 0.4 % (0.0-0.2); EOSINOPHIL # 0.4 10^3/uL (0.0-0.2); EOSINOPHIL % 4.1 % (0.0-5.0); LYMPHOCYTES % 17.2 % (24.0-44.0); MEAN CORP HGB 28.3 pg (26-34); MONOCYTES # 1.2 10^3/uL (0.3-0.8); MONOCYTES % 12.6 % (5.0-12.0); NEUTROPHIL # 6.1 10^3/uL (1.8-7.7); NEUTROPHILS % 65.7 % (41.0-85.0); PLATELET COUNT 200 10^3/uL (150-400); RED CELL DISTRIBUTION WIDTH 13.9 % (11.5-14.5)
[2022-08-18 05:41] LABS: CARBON DIOXIDE 28.6 mmol/L (20.0-32)
[2022-08-18 08:00] VITALS: BP 208/75
[2022-08-18] MEDS: PROTONIX IV IV SCH (08:04)
[2022-08-18] MEDS: COREG PO SCH ×2 (08:04→20:34)
[2022-08-18] MEDS: APRESOLINE PO SCH ×5 (08:04→20:35)
[2022-08-18] MEDS: VIBRAMYCIN 100 MG in NS 100ML 100 ML IV SCH ×2 (08:15→20:34)
[2022-08-18] MEDS: COZAAR PO SCH (08:27)
[2022-08-18] MEDS: LASIX IV SCH (08:28)
[2022-08-18] MEDS: ASPIRIN EC PO SCH (08:29)
[2022-08-18] MEDS: PERIDEX MM SCH ×2 (08:29→20:35)
[2022-08-18] MEDS ORDERED: NS 250ML 250 ML ONE (08:31)
[2022-08-18 12:24] VITALS: BP 93/62
[2022-08-18] MEDS: ROCEPHIN 1,000 MG in NS 100ML 100 ML IV SCH (12:27)
[2022-08-18] MEDS: LOVENOX SQ SCH (12:28)
--- NOTE | 2022-08-18 14:04 | DIET.OP ---
Nutrition Asmt/Malnutrit 2-17 Actual Date of Review: Aug 18, 2022 Actual Time Reviewed Asmt: 13:56 Diagnosis: Hypoxic ARF, Cardiopulmonary Arrest, CHF Exacerbation, Pneumonia Subjective Information: 61 yo f, presetned chest pain, SOB, cardiac arrest in ER. Current Diet Order/Nutrition S: Soft [place] Patient /S.O: Not Indicated Pertinent Meds Zofran, Colace, Protonix, KCL Pertinent Labs Hgb 11.1L Hct 34L, Na+ 141, Glucose 100, Ca+ 8.4, TP 6.0L, Alb 2.3L Height (Inches): 65 Current Weight: 126 %IBW: 100 Recent Weight Change: No Weight Status: Appropriate GI Symptoms: Nausua (Zofran) Food Allergies: No Cultural/Ethnic/Roman Catholic Vera: unknown Skin Integrity/Comment: Yes (skin intact) Current %PO: Fair(50-74%) (57% x 6 days) BEE in Kcals: Use Current Weight Calories/Kcals/K-30 Kcals Calculated: 6200-0057 Protein: Use Current Weight Protein g/k.0-1.1 Protein Calculated: 57-63 Fluid: ml: 9630-6968 1 mlo/kcal or pe MD order Nutritional Problem: Nutr. Problems Present Problems: Inadequate Energy Intake Etiology: related to PO intake Signs/Symptoms: as evidenced by PO intake 57% x 6 days Food and Nutrition Intake (Mod: <75% est energy req 7days (57% x 6 days) Fluid Accumulation (N/A): N/A Reduced Motor Man Strength (N/A): N/A Protein-Calorie Malnutrition: N/A Malnutrition Related to Morbid: No Recommendations by RD: Increase Calorie Intake (Boost TID) RD Comments: PO intake 57%, fair, recommend Boost TID Expected Outcomes Stable w/adequate hydration, skin integrity, labs WNL, PO intake > 75%, nutrition needs met within 3 days. Normal Weight %: 90%-110% (Normal) Serum Albumin g/dl: <2.4 (Severe) Malnutrtion/Nutrition Risk Edu: No moderate nutrition risk RD Follow-Up Date: Aug 21, 2022 Notificiation Needed?: Yes (Boost TID) SAUL TIM Aug 18, 2022 14:04
--- NOTE | 2022-08-18 15:11 | PRM.PN ---
Subjective Subjective Date: Aug 18, 2022 Time: 09:00 Subjective Out of bed in a chair.Feeling very weakParticipating with physical therapy/Occupational Therapy8.. VTE VTE Risk Total Score: >5 VTE Risk Score VTE Risk: Score 0-1 = Low Risk (Aggressive mobilization; early ambulation; no VTE prophylaxis required) Score 2: Moderate Risk (Intermittent/Pneumatic Compression Device OR Lovenox/Heparin/Coumadin) Score 3-4: High Risk (Intermittent/Pneumatic Compression Device AND Lovenox/Heparin/Coumadin) Score > or =5: Highest Risk (Intermittent/Pneumatic Compression Device AND Lovenox/Heparin/Coumadin) Review of Systems Constitutional: Weakness; No: Fever, Chills, Sweats, Malaise, Other Eyes: No: Pain, Vision change, Conjunctivae inflammation, Eyelid inflammation, Other, Redness ENT: No: Ear pain, Ear discharge, Nose pain, Nose discharge, Nose congestion, Mouth pain, Mouth swelling, Throat pain, Throat swelling, Other Respiratory: SOB with excertion; No: Cough, Dry, Shortness of breath, Wheezing, Hemoptysis, Pleuritic Pain, Sputum, Wheezing, Other Cardiovascular: Chest Pain Gastrointestinal: No: Nausea, Vomiting, Abdominal Pain, Diarrhea, Constipation, Melena, Hematochezia, Other Musculoskeletal: No: other, neck pain, shoulder pain, arm pain, back pain, hand pain, leg pain, foot pain Neurological: Weakness Allergies: Coded Allergies: No Known Drug Allergies (Verified Allergy, Unknown, 08/13/22) Objective Vitals and I/O Vital Sign - Last 24 Hours 08/17/22 08/17/22 08/17/22 08/17/22 15:13 15:21 15:23 16:08 Temp 98.4 Pulse 74 74 74 66 Resp 16 16 19 B/P (MAP) 171/136 97/67 (77) Pulse Ox 96 96 97 O2 Delivery Nasal Cannula* Nasal Cannula* Nasal Cannula* O2 Flow Rate 1 1 2 FiO2 24 24 28 08/17/22 08/17/22 08/17/22 08/17/22 20:57 21:02 21:04 21:04 Pulse 61 61 67 61 Resp 18 18 18 B/P (MAP) 101/60 Pulse Ox 91 94 91 O2 Delivery Nasal Cannula* Nasal Cannula* Nasal Cannula* O2 Flow Rate 1 1 1 FiO2 24 24 24 08/17/23 3/24/23 3/24/23 3/24/23 22:06 00:05 03:47 03:47 Temp 97.3 Pulse 63 63 64 Resp 18 18 18 B/P (MAP) 99/59 (72) Pulse Ox 90 94 94 O2 Delivery Nasal Cannula Nasal Cannula* Nasal Cannula* Nasal Cannula* O2 Flow Rate 1.00 2 1 1 FiO2 08/18/22 08/18/22 08/18/22 08/18/22 04:37 08:00 08:27 08:28 Temp 98.6 97.7 Pulse 78 65 Resp 18 18 B/P (MAP) 103/62 (76) 208/75 (119) 208/77 208/78 Pulse Ox 88 95 O2 Delivery Nasal Cannula* Nasal Cannula* O2 Flow Rate 2 2 FiO2 28 08/18/22 08/18/22 08/18/22 08/18/22 08:28 09:30 09:30 09:48 Pulse 108 108 108 Resp 18 18 B/P (MAP) 208/78 Pulse Ox 95 95 O2 Delivery Nasal Cannula* Nasal Cannula* Nasal Cannula O2 Flow Rate 2 2 1.00 FiO2 28 08/18/22 12:24 Temp 98.3 Pulse 68 Resp 18 B/P (MAP) 93/62 (72) Pulse Ox 94 O2 Delivery Nasal Cannula* O2 Flow Rate 2 FiO2 28 Intake and Output 08/18/22 07:00 Intake Total 240 ml Output Total 1500 ml Balance -1260 ml General: Alert, Oriented X3, mild distress HEENT: Atraumatic, PERRLA, EOMI Neck: Supple Lungs: Other (Few basilar crackles) Heart: Regular rate, Normal S1, Normal S2 Extremities: No clubbing, No cyanosis, No edema Neuro: Normal speech, Strength at 5/5 X4 ext All Results(Lab/Rad) Laboratory Tests Test 08/12/22 22:35 08/12/22 22:37 08/12/22 22:57 08/12/22 23:15 White Blood Count 14.1 10^3/uL (4.5-11.0) Red Blood Count 4.66 10^6/uL (4.00-5.20) Hemoglobin 13.3 g/dL (12.0-15.0) Hematocrit 43.4 % (36.0-46.0) Mean Corpuscular Volume 93.1 fL (78-100) Mean Corpuscular Hemoglobin 28.5 pg (26-34) Mean Corpuscular Hemoglobin Concent 30.6 g/dL (33-36.5) Red Cell Distribution Width 13.6 % (11.5-14.5) Platelet Count 220 10^3/uL (150-400) Mean Platelet Volume 11.0 fL (7.8-11.0) Neutrophils (%) (Auto) 43.4 % (41.0-85.0) Lymphocytes (%) (Auto) 50.1 % (24.0-44.0) Monocytes (%) (Auto) 4.1 % (5.0-12.0) Neutrophils # (Auto) 6.1 10^3/uL (1.8-7.7) Lymphocytes # (Auto) 7.07 10^3/uL1 (1.0-4.8) Monocytes # (Auto) 0.6 10^3/uL (0.3-0.8) Absolute Immature Granulocyte (auto 0.31 10^3 u/L (0-2) Absolute Eosinophils (auto) 0.3 10^3/uL (0.0-0.2) Immature Granulocytes % 2.20 % (0.00-0.50) Eosinophils % 1.8 % (0.0-5.0) Basophils % 0.6 % (0.0-0.2) Basophils # 0.1 10^3/uL (0.0-0.1) Prothrombin Time 11.2 SEC (9.1-11.5) INR International Normalized Ratio 1.1 Activated Partial Thromboplast Time 51.1 SEC (22.5-33.1) D-Dimer 21.17 mg/L (0.19-0.49) Sodium Level 145 mmol/L (132-145) Potassium Level 3.1 mmol/L (3.6-5.2) Chloride Level 105.0 mmol/L (96-109) Carbon Dioxide Level 14.5 mmol/L (20.0-32) Anion Gap 28.6 Blood Urea Nitrogen 16 mg/dL (7-18) Creatinine 1.41 mg/dL (0.59-1.40) Estimated GFR () 46.0 (>/=60) Est GFR (CKD-EPI)(Non-Afr Uzbek) 38.0 (>/=60) BUN/Creatinine Ratio 11.0 Glucose Level 355 mg/dL (70-110) Calcium Level 8.3 mg/dL (8.4-10.5) Magnesium Level 2.6 mg/dL (1.8-2.4) Total Bilirubin 0.2 mg/dL (0.2-1.0) Aspartate Amino Transf (AST/SGOT) 152 U/L (0-35) Alanine Aminotransferase (ALT/SGPT) 104 U/L (12-78) Alkaline Phosphatase 152 U/L (50-136) Total Creatine Kinase 184 U/L (26-192) Creatine Kinase MB 4.9 ng/mL (0.5-3.6) Troponin I High Sensitivity 316 ng/L (0-50) Pro-B-Type Natriuretic Peptide 9118 pg/mL (0-125) Total Protein 5.8 g/dL (6.4-8.2) Albumin 2.5 g/dL (3.4-5.0) Globulin 3.3 Albumin/Globulin Ratio 0.757 Procalcitonin 0.05 ng/mL (0.05-0.5) Bedside Glucose 288 (70 - 110) Segmented Neutrophils 49 % (31-76) Lymphocytes 45 % (25-36) Monocytes 3 % (3-9) Absolute Eosinophils (Manual) 3 % (1-4) Platelet Estimate ADEQUATE Platelet Morphology NORMAL Urine Opiates Screen NEGATIVE (c/o300ng/mL) Urine Methadone Screen NEGATIVE (c/o300ng/mL) Urine Barbiturates Screen NEGATIVE (c/o200ng/mL) Urine Phencyclidine Screen NEGATIVE (c/o 25ng/mL) Ur Amphetamine/Methamphetamine NEGATIVE (uf8728mz/mL) Urine MDMA Screen (Ecstasy) NEGATIVE (c/o300ng/mL) Urine Benzodiazepines Screen NEGATIVE (c/o200ng/mL) Urine Cocaine Metabolite Screen NEGATIVE (c/o300ng/mL) Ur Tetrahydrocannabinol (THC) Scrn PRESUMPTIVE POSITIVE (c/o Test 08/12/22 23:30 08/12/22 23:35 08/13/22 01:43 08/13/22 03:50 Blood Gas Sample Site RB Arterial Blood Oxygen Saturation 93.6 % (94.0-97.00) Blood Gas Temperature 37 Triglycerides Level 201 mg/dL (20-200) Lactic Acid Level 14.5 mmol/L (0.5-1.9) Lactic Acid Followup at 2 Hours 1.2 mmol/L (0.5-1.9) Total Creatine Kinase 250 U/L (26-192) Creatine Kinase MB 10.3 ng/mL (0.5-3.6) Troponin I High Sensitivity 1948 ng/L (0-50) Test 08/13/22 04:30 08/13/22 05:08 08/13/22 10:09 08/13/22 11:10 Blood Gas Sample Site RT BRACIAL ARTERY RT BRACIAL ARTERY Arterial Blood Oxygen Saturation 96.2 % (94.0-97.00) 97.3 % (94.0-97.00) Blood Gas Temperature 37 37.0 Activated Partial Thromboplast Time 98.9 SEC (22.5-33.1) 36.1 SEC (22.5-33.1) Blood Gas pH 7.431 (7.350-7.450) Blood Gas PCO2 32.4 mmHg (35.0-45.0) Blood Gas PO2 93.5 mmHg (80.0-100.0) Blood Gas HCO3 21.1 mmol/L (22.0-26.0) Blood Gas Base Excess -2.3 mmol/L (-2.0-2.0) Duglas Test N/A Deoxyhemoglobin 2.6 % (0.0-5.0) Carboxyhemoglobin 2.3 % (0.0-3.9) Methemoglobin 0.1 % (0.00-5.0) Total Hemoglobin 14.7 % (12.0-17.8) Total Oxygen Concentration 19.7 % (13.5-17.5) Oxygen Delivery Method (LAB) VENT Blood Gas Vent Mode AC Blood Gas Vent Rate 16 FiO2 40 % (20-101) Blood Gas Tidal Volume 400 ML Blood Gas PEEP 8.0 CMH2O Total Carbon Dioxide 22.1 mmol/L (23-27) White Blood Count 17.0 10^3/uL (4.5-11.0) Red Blood Count 4.83 10^6/uL (4.00-5.20) Hemoglobin 13.8 g/dL (12.0-15.0) Hematocrit 42.1 % (36.0-46.0) Mean Corpuscular Volume 87.2 fL (78-100) Mean Corpuscular Hemoglobin 28.6 pg (26-34) Mean Corpuscular Hemoglobin Concent 32.8 g/dL (33-36.5) Red Cell Distribution Width 13.7 % (11.5-14.5) Platelet Count 187 10^3/uL (150-400) Mean Platelet Volume 11.2 fL (7.8-11.0) Neutrophils (%) (Auto) 86.9 % (41.0-85.0) Lymphocytes (%) (Auto) 7.2 % (24.0-44.0) Monocytes (%) (Auto) 5.4 % (5.0-12.0) Neutrophils # (Auto) 14.8 10^3/uL (1.8-7.7) Lymphocytes # (Auto) 1.23 10^3/uL1 (1.0-4.8) Monocytes # (Auto) 0.9 10^3/uL (0.3-0.8) Absolute Immature Granulocyte (auto 0.07 10^3 u/L (0-2) Absolute Eosinophils (auto) 0.0 10^3/uL (0.0-0.2) Immature Granulocytes % 0.40 % (0.00-0.50) Eosinophils % 0.0 % (0.0-5.0) Basophils % 0.1 % (0.0-0.2) Basophils # 0.0 10^3/uL (0.0-0.1) Sodium Level 142 mmol/L (132-145) Potassium Level 3.4 mmol/L (3.6-5.2) Chloride Level 105.0 mmol/L (96-109) Carbon Dioxide Level 23.3 mmol/L (20.0-32) Anion Gap 17.1 Blood Urea Nitrogen 30 mg/dL (7-18) Creatinine 1.56 mg/dL (0.59-1.40) Estimated GFR () 41.0 (>/=60) Est GFR (CKD-EPI)(Non-Afr Uzbek) 33.9 (>/=60) BUN/Creatinine Ratio 19.0 Glucose Level 154 mg/dL (70-110) Calcium Level 7.5 mg/dL (8.4-10.5) Total Bilirubin 0.3 mg/dL (0.2-1.0) Aspartate Amino Transf (AST/SGOT) 189 U/L (0-35) Alanine Aminotransferase (ALT/SGPT) 135 U/L (12-78) Alkaline Phosphatase 162 U/L (50-136) Total Creatine Kinase 282 U/L (26-192) Creatine Kinase MB 7.9 ng/mL (0.5-3.6) Total Protein 6.2 g/dL (6.4-8.2) Albumin 2.9 g/dL (3.4-5.0) Globulin 3.3 Albumin/Globulin Ratio 0.878 Test 08/13/22 11:54 08/13/22 15:13 08/13/22 19:20 08/14/22 00:36 Nasal Adenovirus (PCR) NotDetected (NotDetected) Nasal Coronavirus Type 229E (PCR) NotDetected (NotDetected) Nasal Coronavirus Type HKU1 (PCR) NotDetected (NotDetected) Nasal Coronavirus Type NL63 (PCR) NotDetected (NotDetected) Nasal Coronavirus Type OC43 (PCR) NotDetected (NotDetected) Nasal Enterovirus/Rhinovirus (PCR) NotDetected (NotDetected) Nasal Influenza Type A (H1) (PCR) NotDetected (NotDetected) Nasal Influenza Type A (H3) (PCR) NotDetected (NotDetected) Nasal Swab Influenza Virus B (PCR) NotDetected (NotDetected) Nasal Parainfluenza Type 1 (PCR) NotDetected (NotDetected) Nasal Parainfluenza Type 2 (PCR) NotDetected (NotDetected) Nasal Parainfluenza Type 3 (PCR) NotDetected (NotDetected) Nasal Parainfluenza Type 4 (PCR) NotDetected (NotDetected) Nasal Resp Syncytial Virus (PCR) NotDetected (NotDetected) Nasal Bordetella pertussis DNA (PCR NotDetected (NotDetected) Nasal Chlamydophila pneumoniae (PCR NotDetected (NotDetected) Nasal Human Metapneumovirus (PCR) NotDetected (NotDetected) Nasal Mycoplasma pneumoniae (PCR) NotDetected (NotDetected) Nasal SARS-CoV-2 (PCR) NotDetected (NotDetected) Influenza A (PCR) NotDetected (NotDetected) Influenza Type A (H1N1/09) (PCR) NotDetected (NotDetected) Activated Partial Thromboplast Time 66.8 SEC (22.5-33.1) 67.5 SEC (22.5-33.1) Troponin I High Sensitivity 3793 ng/L (0-50) Bedside Glucose 94 (70 - 110) Test 08/14/22 04:20 08/14/22 06:36 08/14/22 08:00 White Blood Count 12.1 10^3/uL (4.5-11.0) Red Blood Count 4.19 10^6/uL (4.00-5.20) Hemoglobin 12.1 g/dL (12.0-15.0) Hematocrit 36.5 % (36.0-46.0) Mean Corpuscular Volume 87.1 fL (78-100) Mean Corpuscular Hemoglobin 28.9 pg (26-34) Mean Corpuscular Hemoglobin Concent 33.2 g/dL (33-36.5) Red Cell Distribution Width 14.3 % (11.5-14.5) Platelet Count 160 10^3/uL (150-400) Mean Platelet Volume 11.6 fL (7.8-11.0) Neutrophils (%) (Auto) 81.3 % (41.0-85.0) Lymphocytes (%) (Auto) 10.7 % (24.0-44.0) Monocytes (%) (Auto) 7.8 % (5.0-12.0) Neutrophils # (Auto) 9.9 10^3/uL (1.8-7.7) Lymphocytes # (Auto) 1.29 10^3/uL1 (1.0-4.8) Monocytes # (Auto) 1.0 10^3/uL (0.3-0.8) Absolute Immature Granulocyte (auto 0.03 10^3 u/L (0-2) Absolute Eosinophils (auto) 0.0 10^3/uL (0.0-0.2) Immature Granulocytes % 0.20 % (0.00-0.50) Eosinophils % 0.0 % (0.0-5.0) Basophils % 0.2 % (0.0-0.2) Basophils # 0.0 10^3/uL (0.0-0.1) Sodium Level 144 mmol/L (132-145) Potassium Level 3.0 mmol/L (3.6-5.2) Chloride Level 107.0 mmol/L (96-109) Carbon Dioxide Level 27.5 mmol/L (20.0-32) Anion Gap 12.5 Blood Urea Nitrogen 29 mg/dL (7-18) Creatinine 1.37 mg/dL (0.59-1.40) Estimated GFR () 47.6 (>/=60) Est GFR (CKD-EPI)(Non-Afr Uzbek) 39.3 (>/=60) BUN/Creatinine Ratio 21.0 Glucose Level 110 mg/dL (70-110) Calcium Level 7.7 mg/dL (8.4-10.5) Total Bilirubin 0.4 mg/dL (0.2-1.0) Aspartate Amino Transf (AST/SGOT) 56 U/L (0-35) Alanine Aminotransferase (ALT/SGPT) 88 U/L (12-78) Alkaline Phosphatase 123 U/L (50-136) Total Creatine Kinase 296 U/L (26-192) Total Protein 5.8 g/dL (6.4-8.2) Albumin 2.6 g/dL (3.4-5.0) Globulin 3.2 Albumin/Globulin Ratio 0.812 Bedside Glucose 114 (70 - 110) Blood Gas Sample Site RT BRACIAL ARTERY Blood Gas pH 7.418 (7.350-7.450) Blood Gas PCO2 36.4 mmHg (35.0-45.0) Blood Gas PO2 66.7 mmHg (80.0-100.0) Blood Gas HCO3 23.0 mmol/L (22.0-26.0) Blood Gas Base Excess -1.1 mmol/L (-2.0-2.0) Duglas Test N/A Arterial Blood Oxygen Saturation 93.1 % (94.0-97.00) Deoxyhemoglobin 6.9 % (0.0-5.0) Carboxyhemoglobin 0.3 % (0.0-3.9) Methemoglobin 0.3 % (0.00-5.0) Total Hemoglobin 12.1 % (12.0-17.8) Total Oxygen Concentration 15.8 % (13.5-17.5) Blood Gas Temperature 37.0 Oxygen Delivery Method (LAB) VENT Blood Gas Vent Mode AC Blood Gas Vent Rate 16 FiO2 40 % (20-101) Blood Gas Tidal Volume 400 ML Blood Gas PEEP 5.0 CMH2O Total Carbon Dioxide 24.1 mmol/L (23-27) Course Sepsis Screening Results: Posi: POSITIVE Sepsis Qualifier/Stage: SEPSIS RISK Duration or Total Time Spent w: 90 min Vitals & review Data Vital Sign - Last 24 Hours 08/17/22 08/17/22 08/17/22 08/17/22 15:13 15:21 15:23 16:08 Temp 98.4 Pulse 74 74 74 66 Resp 16 16 19 B/P (MAP) 171/136 97/67 (77) Pulse Ox 96 96 97 O2 Delivery Nasal Cannula* Nasal Cannula* Nasal Cannula* O2 Flow Rate 1 1 2 FiO2 08/17/22 08/17/22 08/17/22 08/17/22 20:57 21:02 21:04 21:04 Pulse 61 61 67 61 Resp 18 18 18 B/P (MAP) 101/60 Pulse Ox 91 94 91 O2 Delivery Nasal Cannula* Nasal Cannula* Nasal Cannula* O2 Flow Rate 1 1 1 FiO2 08/17/22 08/18/22 08/18/22 08/18/22 22:06 00:05 03:47 03:47 Temp 97.3 Pulse 63 63 64 Resp 18 18 18 B/P (MAP) 99/59 (72) Pulse Ox 90 94 94 O2 Delivery Nasal Cannula Nasal Cannula* Nasal Cannula* Nasal Cannula* O2 Flow Rate 1.00 2 1 1 FiO2 08/18/22 08/18/22 08/18/22 08/18/22 04:37 08:00 08:27 08:28 Temp 98.6 97.7 Pulse 78 65 Resp 18 18 B/P (MAP) 103/62 (76) 208/75 (119) 208/77 208/78 Pulse Ox 88 95 O2 Delivery Nasal Cannula* Nasal Cannula* O2 Flow Rate 2 2 FiO2 08/18/22 08/18/22 08/18/22 08/18/22 08:28 09:30 09:30 09:48 Pulse 108 108 108 Resp 18 18 B/P (MAP) 208/78 Pulse Ox 95 95 O2 Delivery Nasal Cannula* Nasal Cannula* Nasal Cannula O2 Flow Rate 2 2 1.00 FiO2 28 28 08/18/22 12:24 Temp 98.3 Pulse 68 Resp 18 B/P (MAP) 93/62 (72) Pulse Ox 94 O2 Delivery Nasal Cannula* O2 Flow Rate 2 FiO2 28 Intake and Output 08/18/22 07:00 Intake Total 240 ml Output Total 1500 ml Balance -1260 ml Laboratory Tests Test 08/17/22 04:45 08/18/22 05:15 White Blood Count 10.9 10^3/uL 9.3 10^3/uL Red Blood Count 3.90 10^6/uL 3.92 10^6/uL Hemoglobin 11.2 g/dL 11.1 g/dL Hematocrit 33.7 % 34.0 % Mean Corpuscular Volume 86.4 fL 86.7 fL Mean Corpuscular Hemoglobin 28.7 pg 28.3 pg Mean Corpuscular Hemoglobin Concent 33.2 g/dL 32.6 g/dL Red Cell Distribution Width 13.8 % 13.9 % Platelet Count 169 10^3/uL 200 10^3/uL Mean Platelet Volume 11.2 fL 10.6 fL Neutrophils (%) (Auto) 72.5 % 65.7 % Lymphocytes (%) (Auto) 14.1 % 17.2 % Monocytes (%) (Auto) 12.0 % 12.6 % Neutrophils # (Auto) 7.9 10^3/uL 6.1 10^3/uL Lymphocytes # (Auto) 1.54 10^3/uL1 1.60 10^3/uL1 Monocytes # (Auto) 1.3 10^3/uL 1.2 10^3/uL Absolute Immature Granulocyte (auto 0.06 10^3 u/L 0.03 10^3 u/L Absolute Eosinophils (auto) 0.1 10^3/uL 0.4 10^3/uL Immature Granulocytes % 0.60 % 0.30 % Eosinophils % 1.0 % 4.1 % Basophils % 0.4 % 0.4 % Basophils # 0.0 10^3/uL 0.0 10^3/uL Sodium Level 140 mmol/L 141 mmol/L Potassium Level 3.3 mmol/L 3.6 mmol/L Chloride Level 104.0 mmol/L 106.0 mmol/L Carbon Dioxide Level 25.2 mmol/L 28.6 mmol/L Anion Gap 14.1 10.0 Blood Urea Nitrogen 22 mg/dL 26 mg/dL Creatinine 0.88 mg/dL 0.93 mg/dL Estimated GFR () 79.3 74.4 Est GFR (CKD-EPI)(Non-Afr Uzbek) 65.5 61.5 BUN/Creatinine Ratio 25.0 27.0 Glucose Level 97 mg/dL 100 mg/dL Calcium Level 8.8 mg/dL 8.9 mg/dL Total Bilirubin 0.5 mg/dL 0.4 mg/dL Aspartate Amino Transf (AST/SGOT) 20 U/L 21 U/L Alanine Aminotransferase (ALT/SGPT) 32 U/L 28 U/L Alkaline Phosphatase 91 U/L 81 U/L Total Protein 6.2 g/dL 6.0 g/dL Albumin 2.3 g/dL 2.3 g/dL Globulin 3.9 3.7 Albumin/Globulin Ratio 0.589 0.621 Current Medications Medications (Trade) Dose Ordered Sig/Emily PRN Reason Start Time Stop Time Status Last Admin Potassium Chloride (Klor-Con 10) 40 meq STAT 08/17/22 08:30 09/16/22 08:29 08/17/22 11:12 LEVEL 1 SEPSIS INFECTION CRITE: ABX Therapy, Cough/Shortness of Breath, Flu- Pneumonia LEVEL 2-SIRS (LIST ALL THAT AP: None/Not assessed Cardiovascular Evidence: Not Assessed or None Hematologic Evidence: Increased PT/PTT Hepatic Evidence: None/Not assessed Metabolic Evidence: None/Not assessed Neurological Evidence: None/Not assessed Respiratory Evidence: Acute Resp failure, Need for O2 to keep>90%, O2 SAT<9 0room air Renal Evidence: None/Not assessed O2 Sat by Pulse Oximetry: 94 Respiratory End-tidal CO2: 40 Oxygen Flow Rate: 1.00 Assessment/Plan Assessment/Plan Assessment/Plan * Status post cardiopulmonary arrest. * Acute decompensated heart failure secondary to diastolic dysfunction * Extensive lower lung consolidation with ground glass opacities in the upper lungs consistent with extensive multifocal pneumonia. * Acute febrile episode with a T-max of 100.9 degrees Fahrenheit. * Elevated white blood cell count that is currently trending up. * Acute non-ST elevation myocardial infarction -- cannot exclude true ACS versus elevated troponins post-ACLS and chest compressions. * Presumed new left bundle branch block on ECG. * Congestive hepatopathy. * Hypertension. * Hyperlipidemia. * Ventilator-dependent respiratory failure. LHC done 08/13/22: * Nonobstructive coronary artery disease. * Selective coronary angiography. * "Double barrel takeoff" of the left anterior descending artery and the left circumflex artery. * Left ventriculography. * Left ventricular ejection fraction of 55%. * Left ventricular end-diastolic pressure of 13. * Hemostasis established using a 6-Martiniquais Mynx control. Extubated LVEF 55-60% on echo Continue cardiac meds Monitor BP/HR No further cardiac w/up is necessary at this time. Will sign off. 08/15/2022 Cardiac Arrest - 6 min of Coding with 1 epi and 1 bicarb then ROSC. LHC with no acute findings yesterday. ECHO done this morning. Has been able to hold pressures and HR without vasopressors. Amiodarone discontinued 08/13. Extubated 08/14 Leukocytosis - ? Pneumonia pneumonia could be interstitial edema? doxy and rocephin at this time. ROSARIO - further improving, good urine output. monitor. Hypokalemia - replacing via IV today. monitor. Magnesium Magnesium 1.7. This will be replaced Necrotic tissue of left forearm - monitor closely. ?HTN - hydralazine and coreg, monitor BP closely THC use - counselling on cessation during course of stay. Hypomagnesemia. Will be replaced GI and DVT prophylaxis zofran prn for nausea acetaminophen and morphine prn per pain scale oral care after extubation Time spent examining the patient, reviewing history, reviewing labs, images, medications, discussing the case with ASSISTANT WOMEN'S ROWING COACH, patient, documentation and placing orders 45 minutes 08/16/2022 Sitting up in bed. Still complaining of chest discomfort. Feeling weak. Labs reviewed. Current medications reviewed. Otherwise no new complaints.We will consult physical therapy, try to get the patient out of bed.Continue current medications. Appreciate telemetry salon shampoo assistant input and help. Appreciate cold mill inspector input and help. Case discussed with ASSISTANT WOMEN'S ROWING COACH. Cardiac Arrest - With return of spontaneous circulation. Leukocytosis - ? Pneumonia pneumonia could be interstitial edema? doxy and rocephin at this time. ROSARIO - further improving, good urine output. monitor. Hypokalemia - Replace Necrotic tissue of left forearm - monitor closely. ?HTN - hydralazine and coreg, THC use - counselling on cessation during course of stay. Hypomagnesemia. Replace GI and DVT prophylaxis zofran prn for nausea acetaminophen and morphine prn per pain scale oral care after extubation Weakness, consult physical therapyEvaluationAnd treatment 08/17/2022 Sitting up in bed. Still complaining of chest pain especially when trying to take a deep breath. Still requiring nasal cannula oxygen. I did explain to the patient to try to take a deep breath. Incentive spirometry. Patient's son at the bedside. Patient condition and plan of care was discussed. Patient was seen by physical therapy. Probably patient will need rehab.Otherwise today her potassium is 3.1. Will be replaced. Case discussed with patient, son, case management and RN. Time spent examining the patient, reviewing history, reviewing labs, images, medications, discussing the case with ASSISTANT WOMEN'S ROWING COACH, patient,Patient's son, documentation and placing orders 35 minutes 08/14/2022 Patient remains weak. Participating with physical and Occupational Therapy. Ideally patient needs to be discharged to rehab facility for continued therapy but because of lack of insurance it is hard to do.Continue cardiac medications for now. Continue antibiotics. Continue PT/OT. GI and DVT prophylaxis. Problems: (1) Cardiopulmonary arrest Status: Resolved ICD Code: I46.9 - Cardiac arrest, cause unspecified SNOMED: 632822059 (2) Acute hypoxemic respiratory failure Status: Acute ICD Code: J96.01 - Acute respiratory failure with hypoxia SNOMED: 181519012 (3) NSTEMI (non-ST elevated myocardial infarction) Status: Acute ICD Code: I21.4 - Non-ST elevation (NSTEMI) myocardial infarction SNOMED: 05152474 (4) CHF exacerbation Status: Acute ICD Code: I50.9 - Heart failure, unspecified SNOMED: 351844907, [id number] (5) Pneumonia Status: Acute ICD Code: J18.9 - Pneumonia, unspecified organism SNOMED: 566922430, [id number] (6) Acute respiratory failure Status: Acute ICD Code: J96.00 - Acute respiratory failure, unspecified whether with hypoxia or hypercapnia SNOMED: 88448106 Problem Qualifiers (1) CHF exacerbation: Heart failure type: unspecified Qualified Codes: I50.9 - Heart failure, unspecified (2) Pneumonia: Pneumonia type: due to unspecified organism Laterality: unspecified laterality Lung location: unspecified part of lung Qualified Codes: J18.9 - Pneumonia, unspecified organism (3) Acute respiratory failure: Respiratory failure complication: hypoxia and hypercapnia Qualified Codes: J96.01 - Acute respiratory failure with hypoxia; J96.02 - Acute respiratory failure with hypercapnia ROLAND ISAACS MD Aug 18, 2022 15:11
[2022-08-18] MEDS: ULTRAM PO PRN (15:13)
--- NOTE | 2022-08-18 15:15 | NUR ---
PRN 50MG PO ULTRAM ADMINISTERED FOR SUBJECTIVE PAIN LEVEL 7/10. THIS NURSE TO CONTINUE WITH PLAN OF CARE.
[2022-08-18 17:05] VITALS: BP 178/74
[2022-08-18] MEDS ORDERED: NORCO 5MG PO PRN (19:30)
[2022-08-18] MEDS: APRESOLINE IV PRN (19:33)
[2022-08-18 19:34] VITALS: BP 182/72
[2022-08-18] MEDS: DILAUDID IV PRN (20:34)
[2022-08-18] MEDS: LIPITOR PO SCH (20:34)
--- NOTE | 2022-08-18 21:38 | NUR ---
NON ADMIN OF SCHEDULED HYDRALZINE: THIS NURSE DID NOT ADMIN THE 2100 DOSE OF HYDRALZINE BECAUSE A PRN DOSE OF IV HYDRALZINE WAS ADMINISTERED AT 1930.
[2022-08-19 00:34] VITALS: BP 172/69
[2022-08-19 05:04] VITALS: BP 175/66
[2022-08-19] MEDS: ULTRAM PO PRN (05:26)
[2022-08-19 06:12] LABS: BASOPHIL # 0.1 10^3/uL (0.0-0.1); BASOPHIL % 0.5 % (0.0-0.2); EOSINOPHIL # 0.8 10^3/uL (0.0-0.2); EOSINOPHIL % 6.9 % (0.0-5.0); LYMPHOCYTES # 1.77 10^3/uL1 (1.0-4.8); MEAN CORP HGB 28.5 pg (26-34); MONOCYTES # 1.2 10^3/uL (0.3-0.8); MONOCYTES % 10.4 % (5.0-12.0); NEUTROPHIL # 7.4 10^3/uL (1.8-7.7); NEUTROPHILS % 66.2 % (41.0-85.0); PLATELET COUNT 251 10^3/uL (150-400); RED CELL DISTRIBUTION WIDTH 13.6 % (11.5-14.5)
[2022-08-19 06:28] LABS: CARBON DIOXIDE 29.7 mmol/L (20.0-32)
[2022-08-19] MEDS ORDERED: KLOR-CON 10 PO SCH (08:00)
[2022-08-19] MEDS: PERIDEX MM SCH (09:00)
[2022-08-19] MEDS: COREG PO SCH (10:06)
[2022-08-19] MEDS: COZAAR PO SCH (10:07)
[2022-08-19] MEDS: LASIX IV SCH (10:07)
[2022-08-19] MEDS: PROTONIX IV IV SCH (10:07)
[2022-08-19] MEDS: VIBRAMYCIN 100 MG in NS 100ML 100 ML IV SCH (10:07)
[2022-08-19] MEDS: APRESOLINE PO SCH (10:07)
[2022-08-19] MEDS: ASPIRIN EC PO SCH (10:08)
[2022-08-19] MEDS: LOVENOX SQ SCH (11:00)
[2022-08-19 11:05] VITALS: BP 121/72
[2022-08-19] MEDS ORDERED: CARV6.252 PO (11:28)
[2022-08-19] MEDS ORDERED: LOSA50TA2 PO (11:28)
[2022-08-19] MEDS ORDERED: HYDR-3194 PO (11:28)
[2022-08-19] MEDS ORDERED: POTA-129 PO (11:28)
[2022-08-19] MEDS ORDERED: FURO-80 PO (11:28)
[2022-08-19] MEDS ORDERED: ATOR40TA PO (11:28)
[2022-08-19] MEDS ORDERED: ASPI-1007 PO (11:28)
--- NOTE | 2022-08-19 11:41 | PRM.DC ---
Discharge Summary Hospital Course 61-year-old female who presented to the Emergency Room with progressively worsening shortness of breath and tachypnea subsequently went into cardiopulmonary arrest. ACLS protocol was initiated and ROSC was attained after 10-minutes. She was subsequently intubated and sedated. Initial EKG revealed sinus tachycardia with an intraventricular conduction delay in the left atrial abnormality. Repeat EKG shows normal sinus rhythm with a left bundle branch block. She was noted to have extensive bilateral pneumonia and is currently febrile with a T-max of 100.9 degrees Fahrenheit. She is currently on broad-spectrum antibiotics by the hospitalist team. ProBNP was noted to be significantly elevated and a diagnosis of acute decompensated heart failure has been made. She was initially on vasopressors, but is currently off any vasopressors. She will be started on Lasix 40 mg IV daily. A 2D echo will be obtained to evaluate her left ventricular ejection fraction and structural integrity of her heart. She will subsequently be started on beta-xena therapy as well as ANNIE inhibitors/ARBs. High sensitive troponin is noted to be elevated. This could represent true ACS versus elevated troponins post-chest compressions and ACLS protocol. EKG shows left bundle branch block, which is presumed to be new. In view of these, she will be set up for left heart catheterization to rule out an ischemic substrate. Further recommendations will be made based on findings from left heart catheterization. She was initially started on heparin drip as well as amiodarone drip but amiodarone drip has been discontinued. Loading dose of aspirin rectally as well as Plavix via OG tube was administered to the patient. Patient was managed by telemetry real estate inspector and fibrous wallboard inspector in the intensive care unit. Patient had a left heart cath, no obstruction, normal ejection fraction. Epic Ambulatory Analysts evaluated the patient and cardiac medications were continued No need for further work-up from cardiology standpoint.Cardiology signed off. Patient was was extubated successfully. Postextubation patient did well but she had generalized weakness and chest pain from chest Incentive spirometry, PT/OT eval and treat started Patient stabilized and was transferred to telemetry floor. For the last 2 days patient has been progressing nicely. Ambulating. Patient would like to go home. Unfortunately patient does not have health insurance Patient was given information regarding discount medications at [facility]. Patient would like to home go home today She said that she had enough support at home. Oxygen saturation after ambulation went down as low as 89% This is expected to continue to improve with ambulation and incentive spirometry and deep breathing Occasional reconciliation completed Strongly advised to establish care with primary care physicianEarly as possible And also to follow-up in cardiology clinic in 2 weeks Patient will be discharged home. Exam/Vitals Vital Signs Date Time Temp Pulse Resp B/P (MAP) Pulse Ox O2 Delivery O2 Flow Rate FiO2 08/19/22 11:06 16 92 08/19/22 11:05 53 Nasal Cannula* 1 24 08/19/22 11:05 98.1 121/72 (88) General: Alert, Oriented X3 HEENT: Atraumatic, PERRLA Neck: No JVD Lungs: Clear to auscultation, Normal air movement Heart: Regular rate, Normal S1 Abdomen: Normal bowel sounds, Soft Extremities: No clubbing, No cyanosis Skin: No significant lesion Neuro: Normal speech, Normal tone Psych/Mental Status: Mental status NL, Mood NL Scheduled Aspirin (Lo-Dose Aspirin Ec), 81 MG PO DAILY Atorvastatin 40MG (Lipitor 40MG), 40 MG PO HS Carvedilol (Carvedilol), 6.25 MG PO BID Furosemide (Lasix), 1 TAB PO QD Hydralazine Hcl (Hydralazine Hcl), 50 MG PO TID Losartan Potassium (Cozaar), 50 MG PO DAILY Potassium Chloride (Klor-Con 10), 10 MEQ PO STAT Sepsis Evaluation @ Discharge Vital Sign - Last 24 Hours 08/17/22 08/17/22 08/17/22 08/17/22 15:13 15:21 15:23 16:08 Temp 98.4 Pulse 74 74 74 66 Resp 16 16 19 B/P (MAP) 171/136 97/67 (77) Pulse Ox 96 96 97 O2 Delivery Nasal Cannula* Nasal Cannula* Nasal Cannula* O2 Flow Rate 1 1 2 FiO2 24 24 28 08/17/22 08/17/22 08/17/22 08/17/22 20:57 21:02 21:04 21:04 Pulse 61 61 67 61 Resp 18 18 18 B/P (MAP) 101/60 Pulse Ox 91 94 91 O2 Delivery Nasal Cannula* Nasal Cannula* Nasal Cannula* O2 Flow Rate 1 1 1 FiO2 24 24 24 08/17/22 08/18/22 08/18/22 08/18/22 22:06 00:05 03:47 03:47 Temp 97.3 Pulse 63 63 64 Resp 18 18 18 B/P (MAP) 99/59 (72) Pulse Ox 90 94 94 O2 Delivery Nasal Cannula Nasal Cannula* Nasal Cannula* Nasal Cannula* O2 Flow Rate 1.00 2 1 1 FiO2 28 08/18/22 08/18/22 08/18/22 08/18/22 04:37 08:00 08:27 08:28 Temp 98.6 97.7 Pulse 78 65 Resp 18 18 B/P (MAP) 103/62 (76) 208/75 (119) 208/77 208/78 Pulse Ox 88 95 O2 Delivery Nasal Cannula* Nasal Cannula* O2 Flow Rate 2 2 FiO2 28 08/18/22 08/18/22 08/18/22 08/18/22 08:28 09:30 09:30 09:48 Pulse 108 108 108 Resp 18 18 B/P (MAP) 208/78 Pulse Ox 95 95 O2 Delivery Nasal Cannula* Nasal Cannula* Nasal Cannula O2 Flow Rate 2 2 1.00 FiO2 28 08/18/22 12:24 Temp 98.3 Pulse 68 Resp 18 B/P (MAP) 93/62 (72) Pulse Ox 94 O2 Delivery Nasal Cannula* O2 Flow Rate 2 FiO2 28 Intake and Output 08/18/22 07:00 Intake Total 240 ml Output Total 1500 ml Balance -1260 ml Laboratory Tests Test 08/17/22 04:45 08/18/22 05:15 White Blood Count 10.9 10^3/uL 9.3 10^3/uL Red Blood Count 3.90 10^6/uL 3.92 10^6/uL Hemoglobin 11.2 g/dL 11.1 g/dL Hematocrit 33.7 % 34.0 % Mean Corpuscular Volume 86.4 fL 86.7 fL Mean Corpuscular Hemoglobin 28.7 pg 28.3 pg Mean Corpuscular Hemoglobin Concent 33.2 g/dL 32.6 g/dL Red Cell Distribution Width 13.8 % 13.9 % Platelet Count 169 10^3/uL 200 10^3/uL Mean Platelet Volume 11.2 fL 10.6 fL Neutrophils (%) (Auto) 72.5 % 65.7 % Lymphocytes (%) (Auto) 14.1 % 17.2 % Monocytes (%) (Auto) 12.0 % 12.6 % Neutrophils # (Auto) 7.9 10^3/uL 6.1 10^3/uL Lymphocytes # (Auto) 1.54 10^3/uL1 1.60 10^3/uL1 Monocytes # (Auto) 1.3 10^3/uL 1.2 10^3/uL Absolute Immature Granulocyte (auto 0.06 10^3 u/L 0.03 10^3 u/L Absolute Eosinophils (auto) 0.1 10^3/uL 0.4 10^3/uL Immature Granulocytes % 0.60 % 0.30 % Eosinophils % 1.0 % 4.1 % Basophils % 0.4 % 0.4 % Basophils # 0.0 10^3/uL 0.0 10^3/uL Sodium Level 140 mmol/L 141 mmol/L Potassium Level 3.3 mmol/L 3.6 mmol/L Chloride Level 104.0 mmol/L 106.0 mmol/L Carbon Dioxide Level 25.2 mmol/L 28.6 mmol/L Anion Gap 14.1 10.0 Blood Urea Nitrogen 22 mg/dL 26 mg/dL Creatinine 0.88 mg/dL 0.93 mg/dL Estimated GFR () 79.3 74.4 Est GFR (CKD-EPI)(Non-Afr Spanish) 65.5 61.5 BUN/Creatinine Ratio 25.0 27.0 Glucose Level 97 mg/dL 100 mg/dL Calcium Level 8.8 mg/dL 8.9 mg/dL Total Bilirubin 0.5 mg/dL 0.4 mg/dL Aspartate Amino Transf (AST/SGOT) 20 U/L 21 U/L Alanine Aminotransferase (ALT/SGPT) 32 U/L 28 U/L Alkaline Phosphatase 91 U/L 81 U/L Total Protein 6.2 g/dL 6.0 g/dL Albumin 2.3 g/dL 2.3 g/dL Globulin 3.9 3.7 Albumin/Globulin Ratio 0.589 0.621 Current Medications Medications (Trade) Dose Ordered Sig/Emily PRN Reason Start Time Stop Time Status Last Admin Potassium Chloride (Klor-Con 10) 40 meq STAT 08/17/22 08:30 09/16/22 08:29 08/17/22 11:12 Plan Problems: (1) Cardiopulmonary arrest Status: Resolved ICD Code: I46.9 - Cardiac arrest, cause unspecified SNOMED: 893407918 (2) Acute respiratory failure Status: Resolved ICD Code: J96.00 - Acute respiratory failure, unspecified whether with hypoxia or hypercapnia SNOMED: 61328297 (3) NSTEMI (non-ST elevated myocardial infarction) Status: Resolved ICD Code: I21.4 - Non-ST elevation (NSTEMI) myocardial infarction SNOMED: 52454667 (4) Lactic acid blood increased Status: Resolved ICD Code: R79.89 - Other specified abnormal findings of blood chemistry SNOMED: 0300921, 299339895 (5) CHF exacerbation Status: Resolved ICD Code: I50.9 - Heart failure, unspecified SNOMED: 871880332, 29917732033214 (6) Pneumonia Status: Resolved ICD Code: J18.9 - Pneumonia, unspecified organism SNOMED: 630780576, 96090166054075 Plan 61-year-old female who presented to the Emergency Room with progressively worsening shortness of breath and tachypnea subsequently went into cardiopulmonary arrest. ACLS protocol was initiated and ROSC was attained after 10-minutes. She was subsequently intubated and sedated. Initial EKG revealed sinus tachycardia with an intraventricular conduction delay in the left atrial abnormality. Repeat EKG shows normal sinus rhythm with a left bundle branch block. She was noted to have extensive bilateral pneumonia and is currently febrile with a T-max of 100.9 degrees Fahrenheit. She is currently on broad-spectrum antibiotics by the hospitalist team. ProBNP was noted to be significantly elevated and a diagnosis of acute decompensated heart failure has been made. She was initially on vasopressors, but is currently off any vasopressors. She will be started on Lasix 40 mg IV daily. A 2D echo will be obtained to evaluate her left ventricular ejection fraction and structural integrity of her heart. She will subsequently be started on beta-xena th erapy as well as ANNIE inhibitors/ARBs. High sensitive troponin is noted to be elevated. This could represent true ACS versus elevated troponins post-chest compressions and ACLS protocol. EKG shows left bundle branch block, which is presumed to be new. In view of these, she will be set up for left heart catheterization to rule out an ischemic substrate. Further recommendations will be made based on findings from left heart catheterization. She was initially started on heparin drip as well as amiodarone drip but amiodarone drip has been discontinued. Loading dose of aspirin rectally as well as Plavix via OG tube was administered to the patient. Patient was managed by telemetry real estate inspector and fibrous wallboard inspector in the intensive care unit. Patient had a left heart cath, no obstruction, normal ejection fraction. Epic Ambulatory Analysts evaluated the patient and cardiac medications were continued No need for further work-up from cardiology standpoint.Cardiology signed off. Patient was was extubated successfully. Postextubation patient did well but she had generalized weakness and chest pain from chest Incentive spirometry, PT/OT eval and treat started Patient stabilized and was transferred to telemetry floor. For the last 2 days patient has been progressing nicely. Ambulating. Patient would like to go home. Unfortunately patient does not have health insurance Patient was given information regarding discount medications at [facility]. Patient would like to home go home today She said that she had enough support at home. Oxygen saturation after ambulation went down as low as 89% This is expected to continue to improve with ambulation and incentive spirometry and deep breathing Occasional reconciliation completed Strongly advised to establish care with primary care physicianEarly as possible And also to follow-up in cardiology clinic in 2 weeks Patient will be discharged home. Problem Qualifiers (1) Acute respiratory failure: Respiratory failure complication: hypoxia and hypercapnia Qualified Codes: J96.01 - Acute respiratory failure with hypoxia; J96.02 - Acute respiratory failure with hypercapnia (2) CHF exacerbation: Heart failure type: unspecified Qualified Codes: I50.9 - Heart failure, unspecified (3) Pneumonia: Pneumonia type: due to unspecified organism Laterality: unspecified laterality Lung location: unspecified part of lung Qualified Codes: J18.9 - Pneumonia, unspecified organism ROLAND ISAACS MD Aug 19, 2022 11:41
[2022-08-19] MEDS ORDERED: ALBU90AE IH (11:43)
[2022-08-19] MEDS: ROCEPHIN 1,000 MG in NS 100ML 100 ML IV SCH (12:00)
--- NOTE | 2022-08-19 12:52 | NUR ---
CENTRAL LINE REMOVAL MAXIMINO SWEET AND THIS NURSE AT THE BEDSIDE AT THIS TIME. PATIENT WAS EDUCATED ON PROCEDURE. PLACED PATIENT IN [place] POSITION, DRESSING WAS REMOVED. USING STERILE TECHNIQUE MAXIMINO SWEET CLEANSED AREA WITH CHLORAPREP. AFTER LETTING THE CHLORAPREP DRY THE PATIENT WAS INSTRUCTED TO BEAR DOWN WHILE RN REMOVED CENTRAL LINE. PRESSURE APPLIED WITH PETROLEUM GAUZE AND STERILE GAUZE FOR 5 MINUTES. PATIENT TOLERATED WELL. GAUZE REINFORCED WITH BIOCLUSIVE PRESSURE DRESSING. EDUCATED PATIENT THE NEED TO LAY FLAT FOR 30 MINUTES POST REMOVAL.EDUCATION GIVEN ON POST CENTRAL LINE CARE INSTRUCTIONS. DENIES QUESTIONS. PATIENT VOICED UNDERSTANDING. DENIES S/S OF DISTRESS SUCH PAIN OR SHORTNESS OF BREATH. CALL LIGHT IN REACH, BED IS LOW AND LOCKED. THIS NURSE TO CONTINUE WITH PLAN OF CARE.
--- NOTE | 2022-08-19 13:00 | NUR ---
SCRIPTS CALLED INTO TESS AT [facility] IN [place] AT THIS TIME.
--- NOTE | 2022-08-19 15:51 | NUR ---
DISCHARGE PATIENT BEING DISCHARGED HOME AT THIS TIME IN STABLE CONDITION. PATIENT DENIES ANY ADDITIONAL NEEDS. VOICED THAT SHE HAD RESOURCES TO OBTAIN HER MEDICATIONS. RELINQUISHED CARE FOR PATIENT AT THIS TIME.
[2022-08-19 15:52] VITALS: BP 121/72
== END 2022-08-19 15:56 | disposition home or self-care (01) | DRG 280 ==
LOC: ER 21:57 → ICU 08-13 01:37 → MS 08-16 16:09
PROVIDERS: ADMIT Internal Medicine; ATTEND Internal Medicine
PROC: 4A023N7 Measurement of Cardiac Sampling and Pressure, Left Heart, Percutaneous Approach (ICD-10-PCS; principal; 2022-08-13)
PROC: B2111ZZ Fluoroscopy of Multiple Coronary Arteries using Low Osmolar Contrast (ICD-10-PCS; 2022-08-13)
PROC: B2151ZZ Fluoroscopy of Left Heart using Low Osmolar Contrast (ICD-10-PCS; 2022-08-13)
DX: I21.4 Non-ST elevation (NSTEMI) myocardial infarction (principal); I46.9 Cardiac arrest, cause unspecified; J96.01 Acute respiratory failure with hypoxia; I50.33 Acute on chronic diastolic (congestive) heart failure; J18.9 Pneumonia, unspecified organism; J96.02 Acute respiratory failure with hypercapnia; Z99.11 Dependence on respirator [ventilator] status; N17.9 Acute kidney failure, unspecified; I11.0 Hypertensive heart disease with heart failure; I44.7 Left bundle-branch block, unspecified; K76.1 Chronic passive congestion of liver; E78.5 Hyperlipidemia, unspecified; I25.10 Atherosclerotic heart disease of native coronary artery without angina pectoris; E83.42 Hypomagnesemia; E87.6 Hypokalemia; Z59.7 Insufficient social insurance and welfare support; Z87.891 Personal history of nicotine dependence; Z90.49 Acquired absence of other specified parts of digestive tract
CPT/HCPCS: 36415; 36600; 70450; 71045; 71275; 80048; 80053; 80307; 80349; 81001; 82550; 82553; 82803; 82810; 82948; 83605; 83735; 83880; 84145; 84478; 84484; 85025; 85379; 85610; 85730; 87040; 87070; 87086; 87205; 87637; 92950; 93005; 93306; 93458; 94002; 94003; 94640; 97162; 97165; 99291; 99292; C1760; C1769; C1894; C9113; G0378; J0171; J0282; J0360; J0696; J1170; J1644; J1650; J1940; J2060; J2250; J2270; J2543; J3010; J3370; J3475; J3490; J7030; J7050; Q9965; Q9967; 97110-GP; 97116-GP; 97530-GP; 97535-GO; A9270; J3480

== ENCOUNTER 2023-04-01 03:13 | Inpatient (IN) | payer SELFPAY ==
[2023-04-01] VITALS (80 sets, daily range): BP systolic 83–251; BP diastolic 50–126; PULSE 55–140; RESP 12–179; TEMP 97.6–98.3; O2SAT 86–99
[~2023-04-01] VITALS: Ht 165.1 cm; Wt 55.8 kg
[~2023-04-01 03:13] MED LIST: ALBU90AE IH; ASPI-1007 PO; ATOR40TA PO; CARV6.252 PO; FURO-80 PO; HYDR-3194 PO; LOSA-400 PO; POTA-129 PO
[2023-04-01] MEDS ORDERED: MAGNESIUM SULFATE 50 ML IV STA (03:19)
[2023-04-01] MEDS ORDERED: DUONEB 0.5-3(2.5) MG/3 ML IH STA (03:19)
[2023-04-01] MEDS ORDERED: NITROGLYCERIN 25MG/D5W 250ML 250 ML IV STA (03:22)
[2023-04-01] MEDS ORDERED: NITROGLYCERIN 25MG/D5W 250ML 250 ML IV ONE (03:26)
[2023-04-01] MEDS ORDERED: LASIX IV STA (03:28)
[2023-04-01] MEDS ORDERED: ASPIRIN PO PRN (03:30)
[2023-04-01 03:35] LABS: BASOPHIL # 0.1 10^3/uL (0.0-0.1); BASOPHIL % 0.9 % (0.0-0.2); EOSINOPHIL # 0.9 10^3/uL (0.0-0.2); EOSINOPHIL % 6.3 % (0.0-5.0); HEMATOCRIT(ML) 43.6 % (36.0-46.0); HEMOGLOBIN 14.3 g/dL (12.0-15.0); LYMPHOCYTES # 5.95 10^3/uL1 (1.0-4.8); LYMPHOCYTES % 40.2 % (24.0-44.0); MEAN CORP HGB 29.3 pg (26-34); MEAN CORP HGB CONCENTRATION 32.8 g/dL (33-36.5); MEAN CORP VOLUME 89.3 fL (78-100); MONOCYTES # 1.1 10^3/uL (0.3-0.8); MONOCYTES % 7.4 % (5.0-12.0); NEUTROPHIL # 6.7 10^3/uL (1.8-7.7); NEUTROPHILS % 44.9 % (41.0-85.0); PLATELET COUNT 306 10^3/uL (150-400); RED BLOOD CELL 4.88 10^6/uL (4.00-5.20); RED CELL DISTRIBUTION WIDTH 13.5 % (11.5-14.5); WHITE BLOOD CELL 14.8 10^3/uL (4.5-11.0)
[2023-04-01] MEDS ORDERED: MAGNESIUM SULFATE 50 ML IV ONE (03:35)
[2023-04-01 03:43] LABS: +ADD MANUAL DIFF(NO CHRG) YES
[2023-04-01] MEDS ORDERED: LASIX ONE (03:46)
[2023-04-01] MEDS ORDERED: ASPIRIN ONE (03:46)
[2023-04-01 03:49] LABS: INR 0.9; PROTHROMBIN PROTIME 9.8 SEC (9.7-11.6)
[2023-04-01 03:56] LABS: EOSINOPHIL 7 % (1-4); LYMPHOCYTE 30 % (25-36); MONOCYTE 7 % (3-9); SEGMENTED NEUTROPHILS 49 % (31-76); TOTAL CELLS COUNTED 100 #CELLS
[2023-04-01 03:58] LABS: ALBUMIN(ML) 3.3 g/dL (3.4-5.0); ALBUMIN/GLOBULIN RATIO 0.846; BUN/CREATININE RATIO 11.71 (10.0-20.0); CALCIUM 8.7 mg/dL (8.4-10.5); CARBON DIOXIDE 18.9 mmol/L (20.0-32); CREATININE SERUM 1.28 mg/dL (0.59-1.40); EST GFR, NON-AA 42.4 (>/=60); POTASSIUM 3.9 mmol/L (3.6-5.2)
[2023-04-01] MEDS ORDERED: ASPIRIN PO STA (07:10)
[2023-04-01] MEDS ORDERED: NORCO 5MG PO PRN (07:30)
[2023-04-01] MEDS ORDERED: APRESOLINE IV PRN (07:30)
[2023-04-01] MEDS ORDERED: CATAPRES PO PRN (07:30)
[2023-04-01] MEDS: ASPIRIN PO SCH (08:37)
[2023-04-01] MEDS ORDERED: APRESOLINE PO SCH (09:00)
[2023-04-01] MEDS: COZAAR PO SCH (11:55)
[2023-04-01] MEDS ORDERED: DUONEB 0.5-3(2.5) MG/3 ML IH PRN (12:00)
[2023-04-01 12:48] LABS: ANION GAP 15.5; BUN/CREATININE RATIO 16.96 (10.0-20.0); CARBON DIOXIDE 24.1 mmol/L (20.0-32); CREATININE SERUM 1.12 mg/dL (0.59-1.40); EST GFR, NON-AA 49.5 (>/=60); POTASSIUM 3.6 mmol/L (3.6-5.2)
[2023-04-01] MEDS: ROCEPHIN 1,000 MG in NS 100ML 100 ML IV SCH (14:20)
[2023-04-01] MEDS: ZITHROMAX PO SCH (14:20)
[2023-04-01] MEDS: APRESOLINE PO SCH ×2 (14:25→20:11)
[2023-04-01] MEDS: MELATONIN PO SCH (20:09)
[2023-04-01] MEDS: COREG PO SCH (20:10)
[2023-04-01] MEDS: CRESTOR PO SCH (20:10)
[2023-04-02] VITALS (63 sets, daily range): BP systolic 75–165; BP diastolic 36–85; PULSE 51–100; RESP 7–67; TEMP 97.8–98.2; O2SAT 93–100
[2023-04-02 05:28] LABS: BASOPHIL % 0.1 % (0.0-0.2); EOSINOPHIL % 0.1 % (0.0-5.0); HEMATOCRIT(ML) 40.6 % (36.0-46.0); HEMOGLOBIN 13.3 g/dL (12.0-15.0); LYMPHOCYTES # 1.88 10^3/uL1 (1.0-4.8); MEAN CORP HGB 28.7 pg (26-34); MEAN CORP HGB CONCENTRATION 32.8 g/dL (33-36.5); MEAN CORP VOLUME 87.7 fL (78-100); MONOCYTES # 1.5 10^3/uL (0.3-0.8); NEUTROPHIL # 13.6 10^3/uL (1.8-7.7); NEUTROPHILS % 79.6 % (41.0-85.0); PLATELET COUNT 263 10^3/uL (150-400); RED BLOOD CELL 4.63 10^6/uL (4.00-5.20); RED CELL DISTRIBUTION WIDTH 13.7 % (11.5-14.5); WHITE BLOOD CELL 17.1 10^3/uL (4.5-11.0)
[2023-04-02 05:31] LABS: +ADD MANUAL DIFF(NO CHRG) NO
[2023-04-02 05:48] LABS: ALBUMIN/GLOBULIN RATIO 0.81; ANION GAP 13.3; BUN/CREATININE RATIO 33.62 (10.0-20.0); CALCIUM 9.4 mg/dL (8.4-10.5); CARBON DIOXIDE 23.5 mmol/L (20.0-32); CREATININE SERUM 1.13 mg/dL (0.59-1.40); POTASSIUM 3.8 mmol/L (3.6-5.2)
[2023-04-02] MEDS ORDERED: LASIX IV SCH (09:00)
[2023-04-02] MEDS: ASPIRIN PO SCH (09:28)
[2023-04-02] MEDS: APRESOLINE PO SCH ×3 (09:28→20:18)
[2023-04-02] MEDS: LOVENOX SQ SCH (09:28)
[2023-04-02] MEDS: COZAAR PO SCH (09:28)
[2023-04-02] MEDS: FARXIGA PO SCH (09:29)
[2023-04-02] MEDS: COREG PO SCH ×2 (09:29→20:20)
[2023-04-02] MEDS: IMDUR PO SCH (09:29)
[2023-04-02] MEDS: ZITHROMAX PO SCH (09:29)
[2023-04-02] MEDS ORDERED: NS 250ML 250 ML ONE (13:24)
[2023-04-02] MEDS: ROCEPHIN 1,000 MG in NS 100ML 100 ML IV SCH (13:26)
[2023-04-02 16:40] LABS: BILIRUBIN,URINE NEGATIVE (NEGATIVE); LEUKOCYTE ESTERASE ,URINE NEGATIVE (NEGATIVE); NITRATE,URINE NEGATIVE (NEGATIVE); UROBILINOGEN,URINE 0.2 E.U./dL (0.2)
[2023-04-02 16:41] LABS: APPEARANCE,URINE CLEAR; UA COLOR YELLOW
[2023-04-02] MEDS: MELATONIN PO SCH (20:19)
[2023-04-02] MEDS: CRESTOR PO SCH (20:21)
[2023-04-03 00:29] VITALS: BP 140/71; PULSE 62; RESP 17; TEMP 98.2; O2SAT 93
[2023-04-03 04:22] VITALS: BP 165/64; PULSE 67; RESP 16; TEMP 98.5; O2SAT 92
[2023-04-03 05:45] LABS: BASOPHIL # 0.1 10^3/uL (0.0-0.1); BASOPHIL % 0.6 % (0.0-0.2); EOSINOPHIL # 0.2 10^3/uL (0.0-0.2); EOSINOPHIL % 1.8 % (0.0-5.0); HEMATOCRIT(ML) 39.9 % (36.0-46.0); LYMPHOCYTES # 1.94 10^3/uL1 (1.0-4.8); LYMPHOCYTES % 17.8 % (24.0-44.0); MEAN CORP HGB 28.8 pg (26-34); MEAN CORP HGB CONCENTRATION 32.6 g/dL (33-36.5); MEAN CORP VOLUME 88.3 fL (78-100); MONOCYTES # 1.2 10^3/uL (0.3-0.8); MONOCYTES % 10.5 % (5.0-12.0); NEUTROPHIL # 7.5 10^3/uL (1.8-7.7); NEUTROPHILS % 69.1 % (41.0-85.0); PLATELET COUNT 249 10^3/uL (150-400); RED BLOOD CELL 4.52 10^6/uL (4.00-5.20); RED CELL DISTRIBUTION WIDTH 13.7 % (11.5-14.5); WHITE BLOOD CELL 10.9 10^3/uL (4.5-11.0)
[2023-04-03 06:08] LABS: ANION GAP 13.6; BUN/CREATININE RATIO 35.57 (10.0-20.0); CALCIUM 9.3 mg/dL (8.4-10.5); CARBON DIOXIDE 25.2 mmol/L (20.0-32); CREATININE SERUM 1.04 mg/dL (0.59-1.40); EST GFR, NON-AA 53.9 (>/=60); POTASSIUM 3.8 mmol/L (3.6-5.2)
[2023-04-03 06:20] LABS: +ADD MANUAL DIFF(NO CHRG) NO
[2023-04-03 08:00] VITALS: BP 165/79; PULSE 70; RESP 16; TEMP 98.2; O2SAT 93
[2023-04-03] MEDS: ASPIRIN PO SCH (08:59)
[2023-04-03] MEDS: IMDUR PO SCH (08:59)
[2023-04-03] MEDS: LOVENOX SQ SCH (08:59)
[2023-04-03] MEDS: COZAAR PO SCH (09:00)
[2023-04-03] MEDS: COREG PO SCH (09:00)
[2023-04-03] MEDS: APRESOLINE PO SCH (09:00)
[2023-04-03] MEDS: FARXIGA PO SCH (09:01)
[2023-04-03] MEDS: ZITHROMAX PO SCH (09:02)
[2023-04-03 09:15] VITALS: PULSE 63; RESP 16; O2SAT 96
[2023-04-03] MEDS ORDERED: ROSU20TA2 PO (11:37)
[2023-04-03] MEDS ORDERED: LOSA-400 PO (11:37)
[2023-04-03] MEDS ORDERED: ISOS30TA73 PO (11:37)
[2023-04-03] MEDS ORDERED: CARV6.252 PO (11:37)
[2023-04-03] MEDS ORDERED: DAPA10TA PO (11:37)
[2023-04-03] MEDS ORDERED: ASPI-667 PO (11:37)
[2023-04-03] MEDS ORDERED: HYDR-3194 PO (11:37)
[2023-04-03 13:38] VITALS: BP 146/60; PULSE 63; RESP 16; TEMP 98.4; O2SAT 97
== END 2023-04-03 13:38 | disposition home or self-care (01) | DRG 291 ==
LOC: ER 03:13 → EDBD 03:13 → ICU 04:12 → MS 04-02 22:24
PROVIDERS: ADMIT Internal Medicine; ATTEND Internal Medicine
PROC: 5A09357 Assistance with Respiratory Ventilation, Less than 24 Consecutive Hours, Continuous Positive Airway Pressure (ICD-10-PCS; principal; 2023-04-01)
DX: I11.0 Hypertensive heart disease with heart failure (principal); I50.33 Acute on chronic diastolic (congestive) heart failure; J96.01 Acute respiratory failure with hypoxia; I16.1 Hypertensive emergency; I27.20 Pulmonary hypertension, unspecified; J44.9 Chronic obstructive pulmonary disease, unspecified; Z20.822 Contact with and (suspected) exposure to COVID-19; D72.829 Elevated white blood cell count, unspecified; I44.7 Left bundle-branch block, unspecified; E78.5 Hyperlipidemia, unspecified; I25.10 Atherosclerotic heart disease of native coronary artery without angina pectoris; F17.210 Nicotine dependence, cigarettes, uncomplicated; Z91.148 Patient's other noncompliance with medication regimen for other reason; Z79.899 Other long term (current) drug therapy; Z80.1 Family history of malignant neoplasm of trachea, bronchus and lung; Z80.41 Family history of malignant neoplasm of ovary
CPT/HCPCS: 36415; 71045; 71275; 80048; 80053; 81003; 83036; 83735; 83880; 84145; 84484; 85025; 85610; 85730; 87040; 87070; 87086; 87205; 87426; 93005; 93306; 94660; 99291; G0378; J0360; J0696; J1650; J1940; J3475; J3490; J7050; Q0144; Q9965

== ENCOUNTER 2023-07-21 21:51 | Emergency (ER) | payer SELFPAY ==
[~2023-07-21] VITALS: Ht 162.6 cm; Wt 61.2 kg
[~2023-07-21 21:51] MED LIST changes: +ASPI-667 PO; +DAPA10TA PO; +ISOS30TA73 PO; +ROSU20TA2 PO
[2023-07-21] MEDS ORDERED: SOLU-MEDROL ONE (22:02)
[2023-07-21] MEDS: SOLU-MEDROL IV STA (22:05)
[2023-07-21] MEDS ORDERED: SUBLIMAZE 100MCG/2ML ONE (22:07)
[2023-07-21] MEDS ORDERED: VERSED ONE (22:09)
[2023-07-21] MEDS: SUBLIMAZE 100MCG/2ML IV STA (22:10)
[2023-07-21] MEDS: VERSED IV STA (22:11)
[2023-07-21 22:13] LABS: BASOPHIL # 0.1 10^3/uL (0.0-0.1); BASOPHIL % 0.7 % (0.0-0.2); EOSINOPHIL # 0.5 10^3/uL (0.0-0.2); EOSINOPHIL % 2.8 % (0.0-5.0); HEMATOCRIT(ML) 47.4 % (36.0-46.0); LYMPHOCYTES # 7.39 10^3/uL1 (1.0-4.8); LYMPHOCYTES % 42.9 % (24.0-44.0); MEAN CORP HGB 28.7 pg (26-34); MEAN CORP HGB CONCENTRATION 31.6 g/dL (33-36.5); MEAN CORP VOLUME 90.8 fL (78-100); MONOCYTES # 1.8 10^3/uL (0.3-0.8); MONOCYTES % 10.6 % (5.0-12.0); NEUTROPHIL # 7.4 10^3/uL (1.8-7.7); NEUTROPHILS % 42.6 % (41.0-85.0); PLATELET COUNT 273 10^3/uL (150-400); RED BLOOD CELL 5.22 10^6/uL (4.00-5.20); RED CELL DISTRIBUTION WIDTH 14.1 % (11.5-14.5); WHITE BLOOD CELL 17.2 10^3/uL (4.5-11.0)
[2023-07-21] MEDS ORDERED: NS 1000ML 1,000 ML ONE (22:13)
[2023-07-21] MEDS ORDERED: DIPRIVAN 100 ML IV ONE (22:19)
[2023-07-21 22:22] LABS: +ADD MANUAL DIFF(NO CHRG) YES
[2023-07-21] MEDS: DIPRIVAN 100 ML IV PRN (22:23)
[2023-07-21] MEDS: LASIX IV STA (22:25)
[2023-07-21] MEDS ORDERED: LASIX ONE ×2 (22:25)
[2023-07-21 22:27] VITALS: PULSE 101; RESP 16; O2SAT 99
[2023-07-21 22:29] LABS: INR 0.9; PROTHROMBIN PROTIME 9.5 SEC (9.7-11.6)
[2023-07-21 22:34] LABS: EOSINOPHIL 4 % (1-4); LYMPHOCYTE 48 % (25-36); MONOCYTE 8 % (3-9); SEGMENTED NEUTROPHILS 34 % (31-76); TOTAL CELLS COUNTED 100 #CELLS
[2023-07-21 22:38] LABS: ALBUMIN(ML) 3.6 g/dL (3.4-5.0); ALBUMIN/GLOBULIN RATIO 0.923; ANION GAP 23.8; BUN/CREATININE RATIO 8.57 (10.0-20.0); CALCIUM 9.1 mg/dL (8.4-10.5); CARBON DIOXIDE 17.2 mmol/L (20.0-32); CREATINE KINASE MB 2.8 ng/mL (0.5-3.6); CREATININE SERUM 1.4 mg/dL (0.59-1.40); EST GFR, NON-AA 38.2 (>/=60)
[2023-07-21] MEDS ORDERED: ZEMURON IV ONE (22:38)
[2023-07-21 22:39] LABS: ABG OX -sO2 54.2 % (94.0-97.00); ABG PCO2 44.7 mmHg (35.0-45.0); ABG PH 6.966 (7.350-7.450); BE(B) -21.8 mmol/L (-2.0-2.0); pO2 39.9 mmHg (80.0-100.0)
[2023-07-21 22:43] VITALS: BP 144/107; PULSE 84; RESP 30; TEMP 98.1; O2SAT 67
[2023-07-21] MEDS: ROCEPHIN 1,000 MG in NS 100ML 100 ML IV STA (22:47)
[2023-07-21] MEDS: TRANDATE IV STA (22:51)
[2023-07-21] MEDS ORDERED: ROCEPHIN ONE (22:52)
[2023-07-21] MEDS ORDERED: NITROGLYCERIN 25MG/D5W 250ML 250 ML IV ONE (22:53)
[2023-07-21 22:58] VITALS: BP 156/76; PULSE 71; RESP 20; TEMP 98.1; O2SAT 94
[2023-07-21 23:19] LABS: ABG PCO2 41.1 mmHg (35.0-45.0); ABG PH 7.281 (7.350-7.450); BE(B) -7.4 mmol/L (-2.0-2.0); HCO3act 18.9 mmol/L (22.0-26.0)
[2023-07-21] MEDS ORDERED: HEPARIN ONE (23:19)
[2023-07-21] MEDS: NITROGLYCERIN 25MG/D5W 250ML 250 ML IV STA (23:22)
[2023-07-21] MEDS: HEPARIN IV STA (23:22)
[2023-07-21 23:25] VITALS: BP 164/101; PULSE 73; RESP 20; TEMP 98.1; O2SAT 99
[2023-07-21] MEDS ORDERED: NS 100ML 100 ML IV ONE (23:37)
== END 2023-07-21 23:25 | disposition critical access hospital (66) ==
LOC: ER 21:51
DX: A41.9 Sepsis, unspecified organism (principal); J96.01 Acute respiratory failure with hypoxia; I16.1 Hypertensive emergency; E87.20 Acidosis, unspecified; I21.4 Non-ST elevation (NSTEMI) myocardial infarction; I50.9 Heart failure, unspecified; I25.2 Old myocardial infarction; Z88.7 Allergy status to serum and vaccine
CPT/HCPCS: 99291; 31500; 96365; 71045; 96366; 80053; 85025; 36415; 85379; 84484; 87040 ×2; 83605; 82553; 83880; 82550; 85610; 85730; 82803 ×2; 96368; 36600 ×2; 93005; 96375; J3490 ×2; J7030; J1644; J1940 ×2; J0696 ×2; J2250; J3010; J2930; 94002